=== PATIENT | female | born 1945 | race Caucasian/White ===

== ENCOUNTER 2023-12-28 20:18 | Inpatient (IN) | payer MEDICARE, MEDICAID, SELFPAY ==
[2023-12-28 20:19] VITALS: BP 152/62; PULSE 80; RESP 18; TEMP 36.6; O2SAT 95; BMI 43.6
--- NOTE | 2023-12-28 20:54 | NURSING ---
Patients last known well was 12/22/23. The family was concerned that the patient is acting different with her memory. This nurse completed an NIHSS and scored the patient a two.
--- NOTE | 2023-12-28 21:37 | EKG12_ITS ---
Test Reason : FALL Blood Pressure : / mmHG Vent. Rate : 079 BPM Atrial Rate : 079 BPM P-R Int : 124 ms QRS Dur : 074 ms QT Int : 360 ms P-R-T Axes : 046 036 042 degrees QTc Int : 412 ms Normal sinus rhythm Normal ECG Confirmed by DIDI RUIZ, DEANN ([id number]), editor school photograph SRINATH DUKES ([id number]) on 12/30/2023 6:47:03 AM Referred By: Confirmed By:ZOLTAN TOLBERT MD
--- NOTE | 2023-12-28 21:37 | CT_ITS ---
STUDY: CT CERVICAL SPINE WITHOUT CONTRAST REASON FOR EXAM: Female, 78 years old. pain, fall RADIATION DOSAGE (If Supplied By Facility): CTDIvol = ( 32.40 ) mGy, DLP = ( 600.62 ) mGycm TECHNIQUE: High resolution transaxial imaging was performed without contrast material. Sagittal and coronal images were reconstructed. Individualized dose optimization techniques were used for this CT. COMPARISON: None FINDINGS: Normal craniovertebral junction. Normal anterior atlantoaxial articulation. Normal odontoid process. Normal cervical lordosis. Normal vertebral bodies and posterior osseous elements. C2-3: Normal endplates. Normal disc height and morphology. Normal central canal and intervertebral neuroforamina. C3-4: Normal endplates. Normal disc height and morphology. Normal central canal. Facet hypertrophy slightly narrowing the left intervertebral neuroforamen. C4-5: Normal endplates. Normal disc height and morphology. Normal central canal. Facet hypertrophy slightly narrowing the left intervertebral neural foramen. C5-6: Mild spurring at the endplates. Narrowed disc height. Normal central canal . Uncovertebral spurring slightly narrowing the right intervertebral neural foramen. C6-7: Normal endplates. Normal disc height and morphology. Normal central canal and intervertebral neuroforamina. C7-T1: Normal endplates. Normal disc height and morphology. Normal central canal and intervertebral neuroforamina. Normal visualized soft tissue structures. CT/Spine Cervical without Contras IMPRESSION: No acute bony injury of the cervical spine. Electronically Signed: Hernan Palmer DO at 23:08 EDT Reading Location ID and State: [facility] / [place] Tel [phone], Service support ,
--- NOTE | 2023-12-28 21:37 | CT_ITS ---
STUDY: CT BRAIN WITHOUT CONTRAST REASON FOR EXAM: Female, 78 years old. head injury RADIATION DOSAGE (If Supplied By Facility): CTDIvol = ( 44.99 ) mGy, DLP = ( 812.98 ) mGycm TECHNIQUE: Transaxial CT imaging of the brain was performed without administration of intravenous contrast material. Individualized dose optimization techniques were used for this CT. COMPARISON: No relevant priors. FINDINGS: Normal soft tissue structures. Normal calvarium. Normal size ventricles and extra-axial spaces for the patient''s age. Bilateral white matter microangiopathic ischemic changes of the cerebral hemispheres. Normal basal ganglia and thalami. Normal brainstem. Normal cerebellum. There is no intracranial hemorrhage. There are no findings of an acute ischemic infarction. Normal visualized paranasal sinuses. CT/Brain/Head without Contrast IMPRESSION: Age-related changes of the brain. Electronically Signed: Hernan Palmer DO at 22:57 EDT ,
[2023-12-28 21:45] LABS: Absolute Lymphocyte Count 1.66 X10^3/uL (0.83-4.51); Basophil# 0.03 X10^3/uL; Basophil% 0.2 % (0-1); Eosinophil# 0.03 X10^3/uL; Eosinophils% 0.2 % (0-5); Hematocrit 23.5 % (37-47); Hemoglobin 7.4 g/dL (12.0-15.0); Lymphocyte # 1.66 X10^3/ul (0.83-4.51); Lymphocyte % 11.3 % (19-41); Mean Corp Hgb Conc 31.5 g/dL (32-36); Mean Corpuscular Hgb 24.7 pg (27.0-32.0); Mean Corpuscular Volume 78.3 fL (81-99); Monocyte# 0.66 X10^3/uL; Monocyte% 4.5 % (0-10); NRBC Flagged by Analyzer 0.2 % (0-5); Neutrophil # 11.98 X10^3/uL (2.7-7.7); Neutrophil % 81.7 % (47-70); Platelet Count 323 K/mm3 (150-450); RBC Distribution Width CV 19.4 % (11.6-14.6); RBC Distribution Width SD 55.2 fl (35.1-43.9); White Blood Count 14.7 K/mm3 (4.4-11.0)
[2023-12-28 21:53] LABS: Erythrocyte Sedimentation Rate 91 mm/hr (0-30)
[2023-12-28 22:02] LABS: Mucous, Urine 0 SEEN /hpf (<or=2+)
[2023-12-28 22:04] LABS: Color, Urine Amber (Yellow); Glucose, Dipstick Normal (Normal); Ketone-Dipstick 5 mg/dl (Negative); Leukocyte Esterase-Dipstick 25 /ul (Negative); Nitrite-Dipstick Positive (Negative); Occult Blood-Urine 50 /ul (Negative); Protein-Dipstick 30 mg/dl (Negative); Specific Gravity, Urine 1.015 (1.002-1.030); Urine Bilirubin Dipstick Negative (Negative); Urine Clarity Sl. Cloudy (Clear); Urine Urobilinogen 4 mg/dl (Normal)
--- NOTE | 2023-12-28 22:15 | RAD_ITS ---
INDICATION: pain, fall EXAMINATION/TECHNIQUE: X-RAY - XR Pelvis 1 or 2 Views COMPARISON: FINDINGS: PELVIC BONES: No displaced fracture, destructive or sclerotic lesions. Note that overlapping bowel shadows may however obscure fine detail. Sacroiliac joints are unremarkable. No widening of the pubic symphysis. HIPS: The articular structures are unremarkable. No displaced fracture seen in this frontal view. SOFT TISSUES: No soft tissue swelling or gas. RAD/Pelvis 1 or 2 Views IMPRESSION: No evidence of displaced pelvic or hip fracture. Electronically Signed: Hernan Palmer DO at 23:31 EDT Reading Location ID and State: [facility] / [place] Tel [phone], Service support ,
--- NOTE | 2023-12-28 22:15 | RAD_ITS ---
INDICATION: cough EXAMINATION/TECHNIQUE: X-RAY - XR Chest 1 View COMPARISON: FINDINGS: LINES/DEVICES: None. LUNGS: No consolidation, edema or effusion. No pneumothorax. MEDIASTINUM AND CARDIOVASCULAR STRUCTURES: Cardiac silhouette not enlarged. Central airways and mediastinal contour are unremarkable. BONES AND SOFT TISSUES: Unremarkable. RAD/Chest 1 View (Portable) IMPRESSION: No radiographic evidence of acute cardiopulmonary disease. Electronically Signed: Hernan Palmer DO at 23:51 EDT ,
[2023-12-28 22:19] VITALS: BP 160/64
[2023-12-28 22:19] LABS: Bacteria 4+ /hpf (None Seen); Hyaline Cast 0-5 SEEN /lpf (0-5); Red Blood Cells-Urine 0-5 SEEN /hpf (0-5); Squamous Epithelial Cells - UA 0-5 SEEN /hpf (5-10); White Blood Cells 0-5 SEEN /hpf (0-5)
[2023-12-28 22:21] LABS: ALB/GLOB Ratio 0.3 RATIO (0.9-2.4); AST(SGOT) 27 U/L (15-37); Alanine Aminotransfer ALT/SGPT 30 U/L (13-56); Albumin, Serum 1.8 g/dL (3.2-5.0); Alkaline Phosphatase 198 U/L (45-117); Anion Gap 5 (5-15); BUN 12 mg/dL (7-18); BUN/Creat Ratio 14.4 RATIO (10-20); CPK Total, Creatine Kinase 13 U/L (26-192); Calcium,Total 8.2 mg/dL (8.5-10.1); Chloride 97 mmol/L (98-107); Creatinine, Serum 0.83 mg/dL (0.55-1.02); EST Glomerular Filtration Rate 71 mL/min (>60); Est Glom Filt Rate - Afr Amer 86 mL/min (>60); Estimated Creatinine Clearance 73.26 ml/min; Globulin 5.7 g/dL (2.2-4.2); Glucose 133 mg/dL (74-106); Potassium 3.8 mmol/L (3.5-5.1); Protein, Total 7.5 g/dL (6.4-8.2); Sodium Level 133 mmol/L (136-145); Troponin-I HS 25 pg/mL (3.0-54.0)
--- NOTE | 2023-12-28 23:37 | PCM.HP.STD ---
HPI - General General Date of Admission: 12/28/23 Date of Service: 12/28/23 Chief Complaint: Fall/back pain HPI Narrative DEON JIMENEZ, is a 78 F who presented to the emergency department at [facility] on 12/28/2023 for back pain after fall. She indicates she has frequent falls. She lives with her daughter in a trailer at this time. She ambulates with a walker at baseline due to mobility issues. She recently had a fall and has been having some increased back pain since that point in time so she came to emergency department. She admits to a new left lower extremity chronic leg wound that has been ongoing for 2 years she states that about a year ago she had complete resolution and then shortly thereafter it reestablished and has been problematic since that point in time. She is currently placing dressings with silver sulfasalazine prescribed by her primary care physician. She denies any systemic symptoms. She complains of chronic constipation and has never had a colonoscopy. She denies any melena or hematochezia. She has no vaginal bleeding. She indicated that if it was not for her back pain she would need to come to the emergency department. She does admit to being previously diagnosed with obstructive sleep apnea but has never gone for CPAP assessment. Vital signs on presentation showed a temperature of 97.9, heart rate 80, blood pressure 152/62, respiratory rate was 18 oxygen saturations were 95% on room air. CBC shows multiple abnormalities with a leukocytosis having a 14.7 white count and an 81.7% neutrophilia. She has a microcytic anemia with a hemoglobin of 7.4 and MCV of 78.3 with all indices being abnormal. Platelet count was normal. Chemistry shows a sodium of 133 with normal renal function. Glucose is 133 nonfasting. LFTs are normal. Troponin was 25. ESR was elevated at 91. CRP is 231. EKG was normal sinus rhythm without any ST-T wave changes consistent with acute ischemia and intervals were normal. CT the brain shows only age-related changes and no acute findings. CT of the cervical spine showed no acute bony abnormality. Chest x-ray showed no evidence of any acute cardiopulmonary disease. Pelvic x-ray showed no evidence of displaced pelvic or hip fracture and x-rays of the left lower extremity tibia and fibula show [facility] Medical History (Updated 12/29/23 @ 00:[address] Melanie Starks, ) AJAY (obstructive sleep apnea) Morbid obesity Chronic edema Hypothyroidism Congenital skull deformity Open leg wound Home Medications ?Medication ?Instructions ?Recorded ?Last Taken ?Type furosemide 20 mg tablet 20 mg PO DAILY PRN swelling 12/28/23 12/28/23 History levothyroxine 75 mcg tablet 25 mcg PO DAILY 12/28/23 Unknown History silver sulfadiazine 1 % topical 1 applic topical BID 12/28/23 12/28/23 History cream Allergy/AdvReac Type Severity Reaction Status Date / Time Penicillins Allergy Intermediate Rash Verified 12/28/23 20:30 Family History (Updated 12/29/23 @ 00:[address] Graciela Cartagena DO) Other Heart disease Hypertension Thyroid disorder unable to obtain Social History (Updated 12/29/23 @ 00:[address] Graciela Cartagena DO) household members: children housing: other details: Trailer Smoking Status: Former smoker alcohol intake: current alcohol intake frequency: holidays/special occasions only substance use type: does not use additional social history: Ambulates at baseline with a walker ROS Constitutional Constitutional: Denies anorexia, change in weight, chills, fatigue, fever(s), malaise, night sweats, weakness or other Eyes Eyes: Denies blurry vision, change in eye color, change in vision, discharge from eye(s), double vision, erythema, eye pain, loss of vision or other ENT HEENT: Denies abnormal hearing, dysphagia, ear pain, epistaxis, headache(s), hearing loss, nasal congestion, nasal discharge, post nasal drip, sinus pressure, sore throat or other Cardiovascular Cardiovascular: Denies chest pain, claudication, dyspnea on exertion, edema, lightheadedness, orthopnea, palpitations, paroxysmal nocturnal dyspnea, rapid heart rate, syncope or other Respiratory/Chest Respiratory/Chest: Denies cough, dyspnea, excessive phlegm production, hemoptysis, productive cough, shortness of breath at rest, shortness of breath with exertion, wheezing or other Gastrointestinal Gastrointestinal: Reports constipation; Denies abdominal pain, coffee ground emesis, diarrhea, dyspepsia, hematemesis, hematochezia, loose stools, melena, nausea, vomiting or other Genitourinary Genitourinary: Denies burning urination, difficulty urinating, dysuria, hematuria, nocturia, urinary frequency, urinary hesitancy, urinary incontinence, urinary urgency or other Musculoskeletal Musculoskeletal: Reports back pain, joint pain and joint stiffness; Denies arthralgias, joint swelling, myalgias, neck pain or other Integumentary Integumentary: Reports wounds; Denies dry skin, jaundice, lesions, new lesions, pruritus or rash Neurologic Neurologic: Reports abnormal gait; Denies abnormal speech, confusion, disequilibrium, dizziness, focal weakness, headache(s), numbness, paresthesias, seizure-like activity, seizures, syncope, tingling, tremor(s) or other Psychiatric Psychiatric: Denies anxiety, depression, homicidal ideation, suicidal ideation or other Endocrine Endocrinology: Denies change in body appearance, cold intolerance, excessive sweating, heat intolerance, polydipsia, polyuria or other Hematologic/Lymphatic Hematologic/Lymphatic: Denies anemia, easy bleeding, easy bruising, lymphadenopathy or other Allergic/Immunologic Allergic/Immunologic: Denies rhinitis, hives, eczemia, asthma or other Vital Signs Vital Signs Vital Signs: 12/28/23 20:19 12/28/23 20:23 12/28/23 22:19 Temperature 97.9 F Temperature Source Oral Pulse Rate 80 Respiratory Rate 18 Respiratory Effort Normal Respiratory Depth Normal Respiratory Pattern Normal Blood Pressure 152/62 H 160/64 H Blood Pressure Mean 92 96 Pulse Ox 95 Oxygen Delivery Method Room Air Room Air Weight Weight: 118.9 kg Body Mass Index (BMI) 43.6 Physical Exam Const alert, oriented x3, no apparent distress and well nourished; Negative for average body habitus or healthy appearing Constitutional Narrative: Morbidly obese, older, white female, sitting up in bed, appears comfortable and nontoxic General Appearance: cooperative HEENT normocephalic, head/scalp atraumatic, hearing grossly normal bilaterally and moist oral mucous membranes HEENT Narrative: Mallampati 4, no thrush Eyes PERRL and EOMs intact bilaterally; Negative for conjunctivae normal Eyes Narrative: Conjunctiva are pale bilaterally, no scleral icterus Neck no lymphadenopathy and supple Neck Narrative: Neck is short and thick, trachea is midline, no thyroid enlargement Resp normal respiratory effort, no retractions, no use of accessory muscles and clear to auscultation bilaterally Resp Narrative: Distant due to body habitus but clear Auscultation: Negative for rales, rhonchi or wheezes Cardio regular rate, regular rhythm, S1 normal heart sound, S2 normal heart sound, no murmurs, no rub, no gallops and no clicks GI normal to inspection, nondistended, normoactive bowel sounds, soft to palpation and non-tender GI Narrative: Large protuberant abdomen Extremity Extremity Narrative: Left lower extremity edema with wound as described below, no cyanosis or clubbing, trace right lower extremity edema Skin Skin Narrative: Skin on legs is dry on the right, left leg has large circumferential ulceration with purulent drainage that appears to be fairly superficial, significantly tender, intertriginous yeast noted Neuro oriented x3, CN's II-XII intact bilaterally, moves all extremities and no focal motor deficits Speech: speech normal Psych affect normal Psych Narrative: Pleasant, interacts appropriately Results Lab / Micro Data 12/28/23 21:08 12/28/23 21:08 Labs: Laboratory Results - last 24 hr 12/28/23 21:08: WBC 14.7 H, RBC 3.00 L, Hgb 7.4 L, Hct 23.5 L, MCV 78.3 L, MCH 24.7 L, MCHC 31.5 L, RDW Std Deviation 55.2 H, RDW Coeff of Collins 19.4 H, Plt Count 323, MPV 10.0, Immature Gran % (Auto) 2.100 H, Neut % (Auto) 81.7 H, Lymph % (Auto) 11.3 L, Jackson % (Auto) 4.5, Eos % (Auto) 0.2, Baso % (Auto) 0.2, Absolute Neuts (auto) 12.0 H, Absolute Lymphs (auto) 1.66, Nucleated RBC % 0.2, ESR 91 H, Sodium 133 L, Potassium 3.8, Chloride 97 L, Carbon Dioxide 31.0, Anion Gap 5, BUN 12, Creatinine 0.83, Estim Creat Clear Calc 73.26, Est GFR (MDRD) Af Amer 86, Est GFR (MDRD) Non-Af 71, BUN/Creatinine Ratio 14.4, Glucose 133 H, Calcium 8.2 L, Total Bilirubin 0.90, AST 27, ALT 30, Alkaline Phosphatase 198 H, Total Creatine Kinase 13 L, Troponin I High Sens 25, C-React Prot Ext Range 231.00 H, Total Protein 7.5, Albumin 1.8 L, Globulin 5.7 H, Albumin/Globulin Ratio 0.3 L 12/28/23 21:56: Urine Color Susannah, Urine Clarity Sl. Cloudy, Urine pH 6.0, Ur Specific [place] 1.015, Urine Protein 30 H, Urine Glucose (UA) Normal, Urine Ketones 5 H, Urine Occult Blood 50 H, Urine Nitrite Positive H, Urine Bilirubin Negative, Urine Urobilinogen 4 H, Ur Leukocyte Esterase 25 H, Urine RBC 0-5 SEEN, Urine WBC 0-5 SEEN, Ur Squamous Epith Cells 0-5 SEEN, Urine Bacteria 4+, Hyaline Casts 0-5 SEEN, Urine Mucus 0 SEEN Micro: Microbiology 12/28/23 21:56 Mucosa - Nasopharyngeal SARS-CoV-2, Influenza & RSV (PCR) - Final Imaging Radiology Impression Brain CT 12/28/23 21:37 IMPRESSION: Age-related changes of the brain. Electronically Signed: Hernan Palmer DO at 22:57 EDT , Cervical Spine CT 12/28/23 21:37 IMPRESSION: No acute bony injury of the cervical spine. Electronically Signed: Hernan Palmer DO at 23:08 EDT , Pelvis X-Ray 12/28/23 22:15 IMPRESSION: No evidence of displaced pelvic or hip fracture. Electronically Signed: Hernan Palmer DO at 23:31 EDT , Assessment & Plan Assessment/Plan (1) Leukocytosis: (2) Microcytic anemia: (3) Hyponatremia: (4) Abnormal finding on urinalysis: (5) Constipation: (6) Generalized weakness: (7) Debility: (8) Cellulitis of leg, left: (9) Elevated blood pressure reading: (10) Intertriginous candidiasis: PLAN: Plan Left lower extremity cellulitis -Acute on chronic wound -Check cultures of the wound -Blood cultures are pending -Wound nurse consultation -Check hemoglobin A1c -No obvious need for surgical debridement at this time -Start vancomycin and Levaquin as patient has penicillin allergy -May need to consider ID involvement depending on culture results -Wound does not appear to be deep however x-rays are pending at admission as CRP and sed rate are markedly elevated Microcytic anemia -No obvious signs of blood loss --> I am highly concerned for GI malignancy -patient denies vaginal bleeding -Ferritin, reticulocyte count, iron studies are pending -Guaiac stool pending -Repeat CBC in a.m. -Will hold off on DVT prophylaxis for now and if hemoglobin is stable may be able to consider -Would strongly recommend outpatient GI follow-up as patient has never had a colonoscopy if her hemoglobin is stable while hospitalized to pursue outpatient colonoscopy Abnormal urinalysis -Cultures pending -Antibiotics as noted above Chronic constipation -Scheduled MiraLAX twice daily -Pelvic exam shows large stool burden in the left colon and rectum -as needed stool softeners are available as well Elevated blood pressure reading without history of hypertension -Patient takes as needed Lasix for swelling only -Not on any scheduled antihypertensive -As needed hydralazine for systolic pressure greater than 160 -May need to consider addition of antihypertensive depending on blood pressure trend while hospitalized as I do suspect she probably has some underlying hypertension at baseline Generalized weakness/falls and debility -PT/OT consultation -Patient ambulates with a walker at baseline -Social work/case management consultation for assistance with discharge planning Intertriginous candidiasis -Scheduled nystatin powder Hyponatremia -Mild -Etiology unclear but may be due to as needed Lasix -Hold Lasix while hospitalized -Recheck sodium in a.m. Hypothyroidism -Continue home levothyroxine -Check TSH AJAY -Patient indicates she was to go for evaluation for CPAP but never has done so -AJAY is untreated at baseline Morbid obesity -BMI 43.6 -Recommend weight loss -Complicates treatment, prognosis, outcomes -Likely contributing to debility DVT prophylaxis -SCDs for now until we can rule out any obvious GI bleeding with microcytic anemia -If able to start chemoprophylaxis will likely need Lovenox 40 twice daily CODE STATUS -Full code as verified prior to admission in the emergency department Charges/Coding Visit Charges Inpatient E&M: 28232 Init Hosp L3
--- NOTE | 2023-12-28 23:41 | RAD_ITS ---
INDICATION: wound EXAMINATION/TECHNIQUE: X-RAY - LEFT XR Tibia/Fibula 2 Views COMPARISON: None. FINDINGS: 4 views of the left tib-fib. BONES: Normal anatomic alignment without evidence of fracture or subluxation. No concerning bony lesion or abnormal sclerosis to suggest lesion. JOINTS: Mild to moderate tricompartment degenerative change. SOFT TISSUES: Inferior calcaneal and Achilles enthesophytes. RAD/Tibia & Fibula 2 Views IMPRESSION: No acute osseous abnormality of the left tib-fib. Electronically Signed: Zia Wheeler MD at 0:22 EDT ,
[2023-12-28 23:53] VITALS: BP 183/73; PULSE 87; RESP 20; TEMP 36.3; O2SAT 95
[2023-12-28] MEDS: Cefepime HCl 2 GM in 0.9% Normal Saline (100mL MB+) 100 ML IV (23:58)
[2023-12-29] VITALS (8 sets, daily range): BP systolic 147–189; BP diastolic 55–83; PULSE 75–94; RESP 18–20; TEMP 36.7–37.1; O2SAT 94–100; BMI 42.3
[2023-12-29 00:09] LABS: Platelet Count 318 K/mm3 (150-450); RET-HE 19.6 pg (30-35); Reticulocyte Count 3.14 % (0.5-1.5)
[2023-12-29 00:19] LABS: Ferritin 469 ng/mL (8-252); Iron 22 ug/dL (50-170); Iron Binding Capacity,Total 183 ug/dL (250-450)
--- NOTE | 2023-12-29 00:23 | EX.ED.DYSGE1 ---
HPI History of Present Illness Chief Complaint: Fall Informant: patient Narrative Narrative: Patient is a 78-year-old female with history of constipation, chronic wound of the left lower extremity, AJAY and hypothyroidism presenting for evaluation after a fall. Patient apparently lives in a trailer with her sister. She had a fall 4 to 5 days ago. Patient think she just lost her balance but think she hit her head and does not remember the fall. She states for a time her legs just would not move. Her next-door neighbor had to come help her up and she was on the ground for at least 2 hours. Family found out about this fall today and brought her to the emergency room. They are worried that she has a head injury and they feel that she seems weaker than normal, her speech is a little different and she is not remembering things like she usually would (for example her Social Security number). Patient has been feeling congested for the past 4 days and has had a mild cough but states it hurts to cough. She is having pain on the right side of her neck that goes down to her right chest. She denies any nausea or vomiting and reports chronic constipation. She states her last bowel movement 4 days ago. She denies any black or blood in her stool. She denies abdominal pain. Does not report any urinary symptoms. Does have a increased drainage and weeping from her left lower extremity. No fevers reported. She states she has chronic wounds on her legs and her primary care doctor did refer her to wound care but she has not been able to get in yet. [facility] Medical History AJAY (obstructive sleep apnea) Morbid obesity Chronic edema Hypothyroidism Congenital skull deformity Open leg wound Home Medications ?Medication ?Instructions ?Recorded ?Last Taken ?Type furosemide 20 mg tablet 20 mg PO DAILY PRN swelling 12/28/23 12/28/23 History levothyroxine 75 mcg tablet 25 mcg PO DAILY 12/28/23 Unknown History silver sulfadiazine 1 % topical 1 applic topical BID 12/28/23 12/28/23 History cream Allergy/AdvReac Type Severity Reaction Status Date / Time Penicillins Allergy Intermediate Rash Verified 12/28/23 20:30 Family History Other Heart disease Hypertension Thyroid disorder Social History household members: children housing: other details: Trailer Smoking Status: Former smoker alcohol intake: current alcohol intake frequency: holidays/special occasions only substance use type: does not use additional social history: Ambulates at baseline with a walker ROS ROS ED Constitutional Constitutional ED: Denies chills or fever(s) Cardiovascular Cardiovascular: Reports chest pain Respiratory/Chest Respiratory/Chest: Reports cough; Denies dyspnea Gastrointestinal Gastrointestinal: Reports constipation; Denies abdominal pain, melena, nausea or vomiting Genitourinary Genitourinary ED: Denies dysuria Musculoskeletal Musculoskeletal: Reports neck pain; Denies arthralgias or myalgias Integumentary Reports rash Neurologic Neurologic: Reports weakness; Denies headache(s) or paresthesias Hematologic/Lymphatic Hematologic/Lymphatic: Denies easy bleeding or easy bruising EXAM Physical Exam Const Vital Signs: 12/28/23 20:19 12/28/23 20:23 12/28/23 22:19 Temperature 97.9 F Temperature Source Oral Pulse Rate 80 Respiratory Rate 18 Respiratory Effort Normal Respiratory Depth Normal Respiratory Pattern Normal Blood Pressure 152/62 H 160/64 H Blood Pressure Mean 92 96 Pulse Ox 95 Oxygen Delivery Method Room Air Room Air Positive well nourished, well developed and obese General Appearance ED: well developed and NAD Nutritional Appearance: obese HEENT Reports moist mucous membranes Eyes PERRL and EOMs intact bilaterally Neck supple Neck Narrative: Midline and right sided neck tenderness. No deformity or step-off appreciated. General: tenderness Chest Wall inspection of chest normal and palpation of chest normal Chest Narrative: No chest wall crepitus appreciated Resp normal respiratory effort and clear to auscultation bilaterally Cardio regular rate and regular rhythm GI normal to inspection, nondistended, normoactive bowel sounds and non-tender Auscultation: normoactive bowel sounds Back/Spine Cervical Spine: cervical spine tenderness Extremity Extremity Narrative: Chronic appearing bilateral lower extremities. No obvious deformity. No pain with range of motion of the hips. Pelvis is stable. Edema and chronic venous stasis changes of Neuro oriented x3 Sensorium / Orientation: alert Motor Exam: general weakness Psych mental status grossly normal Skin Skin Narrative: Thickening and chronic venous stasis changes of bilateral legs. Of the left lower extremity patient has 2 separate areas of seeping of these open chronic wounds that are odorous and have seropurulent discharge. She is asymmetric erythema and warmth of the left lower extremity with erythema going from the ankle up to the knee MDM MDM MDM Narrative Medical decision making narrative: Patient is evaluated for weakness, fall that occurred a couple days ago and concern for increased confusion by family. I do not suspect a stroke however given her report of fall will obtain a CT of the brain and cervical spine to rule out traumatic process. I am more concerned about a metabolic process such as infection, possible electrolyte abnormality, hyperglycemia, DKA or even sepsis. CBC shows a leukocytosis with white blood cell count of 14.7, left shift as well as anemia with a hemoglobin 11.4. Her platelets are normal. CMP BMP shows mild hyponatremia the sodium 133 but otherwise largely normal. Normal BUN and creatinine. She has elevation of her CRP and ESR. Liver panel is largely normal but she does have an elevation of her alkaline phosphatase which is nonspecific. High since troponin is normal at 25 and EKG does not show any signs of acute ischemia. Low suspicion for an acute cardiac process at this time. Lactate is added on as well as cultures and a lactate is normal at 1.0. Urinalysis does show signs concerning for infection with 4+ bacteria and positive nitrites. Urine culture sent. Chest x-ray and pelvic x-ray reviewed by myself as well as radiology does not show any acute process or fracture. Patient be started on broad-spectrum antibiotics for concern of cellulitis of her left lower extremity. At this time patient does not meet criteria for sepsis or severe sepsis. She is allergic to penicillin, after discussion with admitting physician, Dr. Cartagena, will start the patient on vancomycin and cefepime in the emergency room. Hospitalist is requested x-ray of the tibia and fibula as well as fecal occult for further workup of her anemia and to rule out GI bleed. This is ordered. When I go back in the room patient's and her family are now in there. Plan of care discussed with them. They are agreeable. Patient hemodynamically stable for the medical floor at time of disposition. History & Record Review Additional record(s) reviewed:: No prior records Lab Data Attestation: I reviewed the patient's lab results. Labs: Laboratory Results - last 24 hr 12/28/23 12/28/23 12/28/23 21:08 21:56 23:15 WBC 14.7 H RBC 3.00 L Hgb 7.4 L Hct 23.5 L MCV 78.3 L MCH 24.7 L MCHC 31.5 L RDW Std Deviation 55.2 H RDW Coeff of Collins 19.4 H Plt Count 323 MPV 10.0 Immature Gran % (Auto) 2.100 H Neut % (Auto) 81.7 H Lymph % (Auto) 11.3 L Geary % (Auto) 4.5 Eos % (Auto) 0.2 Baso % (Auto) 0.2 Absolute Neuts (auto) 12.0 H Absolute Lymphs (auto) 1.66 Nucleated RBC % 0.2 ESR 91 H Retic Count 3.14 H Immature Retic Fraction 47.30 H Retic Hgb Equivalent 19.6 L Sodium 133 L Potassium 3.8 Chloride 97 L Carbon Dioxide 31.0 Anion Gap 5 BUN 12 Creatinine 0.83 Estim Creat Clear Calc 73.26 Est GFR (MDRD) Af Amer 86 Est GFR (MDRD) Non-Af 71 BUN/Creatinine Ratio 14.4 Glucose 133 H Lactic Acid 1.0 Calcium 8.2 L Iron 22 L TIBC 183 L Iron Saturation 12.0 L Ferritin 469 H Total Bilirubin 0.90 AST 27 ALT 30 Alkaline Phosphatase 198 H Total Creatine Kinase 13 L Troponin I High Sens 25 C-React Prot Ext Range 231.00 H Total Protein 7.5 Albumin 1.8 L Globulin 5.7 H Albumin/Globulin Ratio 0.3 L TSH 4.590 H Urine Color Susannah Urine Clarity Sl. Cloudy Urine pH 6.0 Ur Specific [place] 1.015 Urine Protein 30 H Urine Glucose (UA) Normal Urine Ketones 5 H Urine Occult Blood 50 H Urine Nitrite Positive H Urine Bilirubin Negative Urine Urobilinogen 4 H Ur Leukocyte Esterase 25 H Urine RBC 0-5 SEEN Urine WBC 0-5 SEEN Ur Squamous Epith Cells 0-5 SEEN Urine Bacteria 4+ Hyaline Casts 0-5 SEEN Urine Mucus 0 SEEN Radiography Diagnostic Testing: Clinical Impression(s) from Imaging Studies Brain CT 12/28/23 21:37 IMPRESSION: Age-related changes of the brain. Electronically Signed: Hernan Palmer DO at 22:57 EDT Reading Location ID and State: [facility] / [place] Tel [phone], Service support , Cervical Spine CT 12/28/23 21:37 IMPRESSION: No acute bony injury of the cervical spine. Electronically Signed: Hernan Palmer DO at 23:08 EDT , Chest X-Ray 12/28/23 22:15 IMPRESSION: No radiographic evidence of acute cardiopulmonary disease. Electronically Signed: Hernan Palmer DO at 23:51 EDT , Pelvis X-Ray 12/28/23 22:15 IMPRESSION: No evidence of displaced pelvic or hip fracture. Electronically Signed: Hernan Palmer DO at 23:31 EDT , Tibia/Fibula X-Ray 12/28/23 23:41 IMPRESSION: No acute osseous abnormality of the left tib-fib. Electronically Signed: Zia Wheeler MD at 0:22 EDT , Rhythm Strip Rhythm Strip: Sinus Rhythm Rate: 79 Ectopy: None EKG Initial EKG: Attestation: I personally reviewed and interpreted this EKG as follows: Interpretation: Sinus Rhythm Comments: Normal sinus rhythm rate of 79 bpm Normal axis Normal intervals Normal ST segments Prior: No Prior Management Discussion w/another healthcare provider: Hospitalist Discharge Plan Triage Chief Complaint: Fall Other Complaint: Back ED Provider: Melanie Starks Dx/Rx/DC Orders Clinical Impression: Cellulitis of leg, left, Leukocytosis, Microcytic anemia, Hyponatremia, Abnormal finding on urinalysis, Generalized weakness, Debility Primary Care Provider: Care Physician,No Primary Disposition Disposition: [facility]
[2023-12-29 01:26] LABS: Hemoglobin A1c < 3.8 % (3.8-5.6)
[2023-12-29] MEDS: 0.9% Saline Lock 10 ML Syringe IV ×3 (01:36→13:26)
[2023-12-29] MEDS: Vancomycin HCl 2,000 MG in 0.9% Normal Saline (500mL Bag) 500 ML 250 MG IV (01:36)
--- NOTE | 2023-12-29 02:03 | PCM.RX.CS ---
Consult Antibiotic Management Pharmacy has been consulted to manage selected antibiotic: Vancomycin Type of Intervention Type of Consult: New start Labs Labs: Sodium 133 mmol/L (136-145) L 12/28/23 21:08 Potassium 3.8 mmol/L (3.5-5.1) 12/28/23 21:08 Chloride 97 mmol/L (98-107) L 12/28/23 21:08 Carbon Dioxide 31.0 mmol/L (21.0-32.0) 12/28/23 21:08 Anion Gap 5 (5-15) 12/28/23 21:08 BUN 12 mg/dL (7-18) 12/28/23 21:08 Creatinine 0.83 mg/dL (0.55-1.02) 12/28/23 21:08 Est GFR (MDRD) Af Amer 86 mL/min (>60) 12/28/23 21:08 Est GFR (MDRD) Non-Af 71 mL/min (>60) 12/28/23 21:08 BUN/Creatinine Ratio 14.4 RATIO (10-20) 12/28/23 21:08 Glucose 133 mg/dL (74-106) H 12/28/23 21:08 Microbiology Microbiology: Microbiology 12/29/23 00:40 Stool Stool Occult Blood (MELANIE) - Final 12/28/23 21:56 Mucosa - Nasopharyngeal SARS-CoV-2, Influenza & RSV (PCR) - Final Dosing Weight Weight used for dosin.4 kg Estimated Creatinine Clearance Estimated Creatinine Clearance: 73.3 Goal Trough Goal Trough: 15-20 mcg/mL Pharmacy Plan for Drug Dosing Pharmacy Plan for Drug Dosing: Pharmacy Service will continue to monitor and adjust dosing as required. 2000MG IN ER. 1750 Q12H AND DRAW TROUGH PRIOR TO 4TH DOSE Follow-Up Labs Follow-Up Labs: Trough: Vancomycin Date/Time Labs Ordered Labs to be done on [date and time ordered]: 12/29 @ 1300
[2023-12-29] MEDS: Acetaminophen 325 MG Tablet 650 MG PO ×2 (03:12→13:29)
[2023-12-29] MEDS: Nystatin Powder 15gm Bottle 1 APPLIC TOPICAL ×3 (03:12→20:41)
[2023-12-29] MEDS: hydrALAZINE 20 MG/ML Vial 10 MG IV ×2 (03:20→20:45)
[2023-12-29] MEDS: Levothyroxine 25 MCG TABLET PO (05:39)
[2023-12-29 07:06] LABS: Absolute Lymphocyte Count 1.88 X10^3/uL (0.83-4.51); Absolute Neutrophil Count 13.6 X10^3/uL (2.0-7.7); Basophil# 0.04 X10^3/uL; Basophil% 0.2 % (0-1); Eosinophil# 0.02 X10^3/uL; Eosinophils% 0.1 % (0-5); Hematocrit 23.4 % (37-47); Hemoglobin 7.3 g/dL (12.0-15.0); Lymphocyte # 1.88 X10^3/ul (0.83-4.51); Lymphocyte % 11.4 % (19-41); Mean Corp Hgb Conc 31.2 g/dL (32-36); Mean Corpuscular Hgb 24.5 pg (27.0-32.0); Mean Corpuscular Volume 78.5 fL (81-99); Monocyte# 0.73 X10^3/uL; Monocyte% 4.4 % (0-10); NRBC Flagged by Analyzer 0.2 % (0-5); Neutrophil # 13.58 X10^3/uL (2.7-7.7); Neutrophil % 82.3 % (47-70); Platelet Count 316 K/mm3 (150-450); RBC Distribution Width CV 19.2 % (11.6-14.6); RBC Distribution Width SD 54.3 fl (35.1-43.9); Red Blood Count 2.98 M/mm3 (4.2-5.4); White Blood Count 16.5 K/mm3 (4.4-11.0)
[2023-12-29 07:54] LABS: ALB/GLOB Ratio 0.3 RATIO (0.9-2.4); AST(SGOT) 20 U/L (15-37); Alanine Aminotransfer ALT/SGPT 28 U/L (13-56); Albumin, Serum 1.7 g/dL (3.2-5.0); Alkaline Phosphatase 202 U/L (45-117); Anion Gap 5 (5-15); BUN 10 mg/dL (7-18); BUN/Creat Ratio 13.1 RATIO (10-20); Calcium,Total 7.9 mg/dL (8.5-10.1); Chloride 99 mmol/L (98-107); Creatinine, Serum 0.76 mg/dL (0.55-1.02); EST Glomerular Filtration Rate 78 mL/min (>60); Est Glom Filt Rate - Afr Amer 94 mL/min (>60); Estimated Creatinine Clearance 74.71 ml/min; Globulin 5.8 g/dL (2.2-4.2); Glucose 118 mg/dL (74-106); Magnesium 1.9 mg/dL (1.6-2.6); Phosphorus 2.8 mg/dL (2.5-4.9); Potassium 3.7 mmol/L (3.5-5.1); Protein, Total 7.5 g/dL (6.4-8.2); Sodium Level 133 mmol/L (136-145)
[2023-12-29] MEDS: levoFLOXacin IV 750 MG/150 ML BAG 100 MG IV (09:31)
[2023-12-29] MEDS: Polyethylene Glycol 3350 17 GM PACKET PO (09:31)
--- NOTE | 2023-12-29 11:32 | WOUNDNOTE ---
wound photo: left lower leg
--- NOTE | 2023-12-29 11:32 | WOUNDNOTE ---
wound photo: left posterior lower leg
--- NOTE | 2023-12-29 12:40 | PN_ITS ---
Subjective Subjective Patient seen and examined. She had no active concerns. She was admitted on account of mechanical falls and found right lower extremity also with cellulitis. She is also anemic. She denies any history of dark stools. She is never had colonoscopy before. She admits to a 10 pound weight loss but cannot say what medicines and is not unintentional. Review of systems otherwise negative. She has remained hemodynamically stable. Objective Data Objective Data Vital Signs: Vital Signs Temp Pulse Resp BP Pulse Ox O2 Del Method 98.1 F 75 18 168/61 H 95 Room Air 12/29/23 09:25 12/29/23 09:25 12/29/23 09:25 12/29/23 09:25 12/29/23 09:25 12/29/23 09:35 Oxygen Delivery Method Room Air Weight: 254 lb 6.615 oz Body Mass Index (BMI) 42.3 Intake & Output: Intake and Output for Last 24 Hours 12/27/23 12/28/23 12/29/23 23:59 23:59 23:59 Intake Total 790 / 790 Output Total 650 / 650 Balance 140 / 140 Lab / Micro Data 12/29/23 06:48 12/29/23 06:48 Labs: Laboratory Results - last 24 hr 12/28/23 21:08: WBC 14.7 H, RBC 3.00 L, Hgb 7.4 L, Hct 23.5 L, MCV 78.3 L, MCH 24.7 L, MCHC 31.5 L, RDW Std Deviation 55.2 H, RDW Coeff of Collins 19.4 H, Plt Count 323, MPV 10.0, Immature Gran % (Auto) 2.100 H, Neut % (Auto) 81.7 H, Lymph % (Auto) 11.3 L, [place] % (Auto) 4.5, Eos % (Auto) 0.2, Baso % (Auto) 0.2, A bsolute Neuts (auto) 12.0 H, Absolute Lymphs (auto) 1.66, Nucleated RBC % 0.2, E SR 91 H, Retic Count 3.14 H, Immature Retic Fraction 47.30 H, Retic Hgb Equivalent 19.6 L, Sodium 133 L, Potassium 3.8, Chloride 97 L, Carbon Dioxide 31.0, Anion Gap 5, BUN 12, Creatinine 0.83, Estim Creat Clear Calc 73.26, Est GFR (MDRD) Af Amer 86, Est GFR (MDRD) Non-Af 71, BUN/Creatinine Ratio 14.4, G lucose 133 H, Hemoglobin A1c < 3.8 L, Calcium 8.2 L, Iron 22 L, TIBC 183 L, Iron Saturation 12.0 L, Ferritin 469 H, Total Bilirubin 0.90, AST 27, ALT 30, A lkaline Phosphatase 198 H, Total Creatine Kinase 13 L, Troponin I High Sens 25, C-React Prot Ext Range 231.00 H, Total Protein 7.5, Albumin 1.8 L, Globulin 5.7 H, Albumin/Globulin Ratio 0.3 L, TSH 4.590 H 12/28/23 21:56: Urine Color Susannah, Urine Clarity Sl. Cloudy, Urine pH 6.0, Ur Specific [place] 1.015, Urine Protein 30 H, Urine Glucose (UA) Normal, Urine Ketones 5 H, Urine Occult Blood 50 H, Urine Nitrite Positive H, Urine Bilirubin Negative, Urine Urobilinogen 4 H, Ur Leukocyte Esterase 25 H, Urine RBC 0-5 SEEN, Urine WBC 0-5 SEEN, Ur Squamous Epith Cells 0-5 SEEN, Urine Bacteria 4+, Hyaline Casts 0-5 SEEN, Urine Mucus 0 SEEN 12/28/23 23:15: Lactic Acid 1.0 12/29/23 06:48: WBC 16.5 H, RBC 2.98 L, Hgb 7.3 L, Hct 23.4 L, MCV 78.5 L, MCH 24.5 L, MCHC 31.2 L, RDW Std Deviation 54.3 H, RDW Coeff of Collins 19.2 H, Plt Count 316, MPV 10.0, Immature Gran % (Auto) 1.600 H, Neut % (Auto) 82.3 H, Lymph % (Auto) 11.4 L, [place] % (Auto) 4.4, Eos % (Auto) 0.1, Baso % (Auto) 0.2, A bsolute Neuts (auto) 13.6 H, Absolute Lymphs (auto) 1.88, Nucleated RBC % 0.2, S odium 133 L, Potassium 3.7, Chloride 99, Carbon Dioxide 29.0, Anion Gap 5, BUN 10, Creatinine 0.76, Estim Creat Clear Calc 74.71, Est GFR (MDRD) Af Amer 94, Est GFR (MDRD) Non-Af 78, BUN/Creatinine Ratio 13.1, Glucose 118 H, Calcium 7.9 L, Phosphorus 2.8, Magnesium 1.9, Total Bilirubin 1.20 H, AST 20, ALT 28, A lkaline Phosphatase 202 H, Total Protein 7.5, Albumin 1.7 L, Globulin 5.8 H, A lbumin/Globulin Ratio 0.3 L 12/29/23 11:15: S.aureus Protein A PCR Cancelled, MRSA (PCR) Cancelled Micro: Microbiology 12/29/23 00:40 Stool Stool Occult Blood (MELANIE) - Final 12/28/23 21:56 Mucosa - Nasopharyngeal SARS-CoV-2, Influenza & RSV (PCR) - Final Radiography Diagnostic Testing: Radiology Impression Brain CT 12/28/23 21:37 IMPRESSION: Age-related changes of the brain. Electronically Signed: Hernan Palmer DO at 22:57 EDT , Cervical Spine CT 12/28/23 21:37 IMPRESSION: No acute bony injury of the cervical spine. Electronically Signed: Hernan Palmer DO at 23:08 EDT , Chest X-Ray 12/28/23 22:15 IMPRESSION: No radiographic evidence of acute cardiopulmonary disease. Electronically Signed: Hernan Palmer DO at 23:51 EDT , Pelvis X-Ray 12/28/23 22:15 IMPRESSION: No evidence of displaced pelvic or hip fracture. Electronically Signed: Hernan Palmer DO at 23:31 EDT , Tibia/Fibula X-Ray 12/28/23 23:41 IMPRESSION: No acute osseous abnormality of the left tib-fib. Electronically Signed: Zia Wheeler MD at 0:22 EDT , Rhythm Strip Rhythm Strip: Sinus Rhythm Rate: 79 Ectopy: None Physical Exam Const alert, oriented x3 and no apparent distress Constitutional Narrative: obese General Appearance: cooperative HEENT normocephalic, head/scalp atraumatic, moist oral mucous membranes and oropharynx normal Eyes PERRL and EOMs intact bilaterally Neck no lymphadenopathy and supple Lymph Lymphatic: no lymphadenopathy noted and no lymphedema noted Resp normal respiratory effort, normal air movement and clear to auscultation bilaterally Cardio regular rate, regular rhythm, S1 normal heart sound, S2 normal heart sound and no murmurs GI normal to inspection, nondistended, normoactive bowel sounds, soft to palpation, non-tender and non-distended Extremity Extremity Narrative: RLE wrapped in bandage on lower koroma. General Extremity: no tenderness to palpation of joints or extremities Skin Skin Narrative: as under extremity. Neuro CN's II-XII intact bilaterally, no focal motor deficits, no sensory deficits noted and deep tendon reflexes 2+ bilaterally Motor Exam: strength 5/5 throughout and general weakness Psych thought process normal and cooperative Appearance: appropriate Assessment & Plan Assessment/Plan (1) Cellulitis of leg, left: (2) Microcytic anemia: PLAN: Plan #Cellulitis of the LLE * LLE wrapped in bandage. * wound cultures ordered. 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 wound care consulted. * blood cultures and wound cultures pending * #Iron deficiency anemia * Hb today is 7.3. Iron studies showed iron deficiency anemia * she has never had a colonoscopy. She denies any dark stools or coffee ground emesis. * start on IV pantoprazole * GI consulted due to concern about malignancy * #Chronic constipation: on miralax prn. #Elevated blood pressure * BP has now improved. not on any BP meds. * will monitor, and if BP goes up, with start on oral meds * IV hydralazine prn * #Debility and generalised weakness due to mechanical falls * patient says she has been falling at home * PT/OT on board. Fall precautions * #Hyponatremia: resolved. #Hypothyroidism:on synthroid #AJAY: Patient not on CPAP she has not been evaluated for it. To follow up with pulmonology on outpatient basis for evaluation for CPAP. DVT prophylaxis: SCDs. No antioagulation due to anemia. Charges/Coding Visit Charges Inpatient E&M: 99010 Subs Hosp L2
[2023-12-29] MEDS: Ensure Plus High Protein 120 ML LIQUID PO (13:29)
[2023-12-29] MEDS: Vancomycin HCl 1,750 MG in 0.9% Normal Saline (500mL Bag) 500 ML 250 MG IV (13:30)
--- NOTE | 2023-12-29 16:30 | CASEMGMT ---
Addendum entered by Radha Kirkpatrick 12/30/23 11:16: RN CM spoke w/[facility]. Pt's current PCP is Dr Serna and pt just recently got re-established w/her as a new pt December 23. [employer] updated. Original Note: RN?CM?PORTFOLIO ARCHITECT?CM?to room to meet with patient for initial transition planning/care coordination?assessment.?RN?CM?introduced self and role at [facility].? Pt voices understanding and consents to?assessment?at this time.? Pt resting in bed in no distress at this time.? Pt is A/O at this time and answers all questions appropriately.?? Care providers, pharmacy, and demographics verified/updated at this time. Strata: 1 PCP: Pt states she sees a [facility] PCP, Dr Stark--but unsure how to spell name of physician or if this is the correct way to say it. Specialists: denies Preferred Pharmacy: [facility] @ [place] Insurance: [facility] Dual, [facility] [employer] Prescription Benefit:?yes Living Will/HPOA:?Pt does not currently have LW/HCPOA LNOK: Pt only has one living adult child, son, Isaak. Had a daughter that . Has raised other children and refers to some of them as daughters. Refers to Bhavana as a daughter, stating, I've raised her since she was 14. Also refers to Nataliya as a daughter. Living Arrangements: Pt has been living w/ Nataliya in mobile home w/4 steps to enter, but states there no stove or standard refrig, except for a mini/compact refrig unit. She states her son, Isaak, got fed up with it and demanded I move. She states she has been able to do own ADL's. Transportation:? Nataliya DME: States has the following DME:?walker. She thinks Bhavana has a shower chair, but she is not sure. Pt is not sure if will need other DME @ ms, stating may possible need [facility]SC. HHC/SNF: No hx of either. 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 She does state, though, if SNF is needed, she would be interested in going to [facility]. Pt states short-term plan @ [place] was for her to discharge to Bhavana's home. She currently lives in [place] but is in the process of moving to [place]. She does not know what the home-set up is like as far as how many stories or steps, stating she has never been @ the new location. She then states that the next plan/long-term plan is for her to go to a [facility] behind [address], [place] something, stating she cannot remember the name of it. Pt gave permission for KAITLYN THOMAS to call her son, Isaak, to gather further information. Call placed to Isaak. Pepper answered, stating she was Susannah's mother (Susannah is Isaak's ). Pepper stated would have Susannah call this KAITLYN THOMAS back. Provided w/this KAITLYN THOMAS's phone #. PLAN:??TBD by progress w/therapy and further conversation with pt and family. Brenna MARINON?RN?CM
[2023-12-29] MEDS: oxyCODONE 5 MG Tablet PO (20:38)
--- NOTE | 2023-12-29 23:00 | EX.PCM.CON.G ---
HPI Consult Data Date of Consult: 11/28/23 HPI Narrative Reason for Consultation: GI bleed HPI Narrative: DEON JIMENEZ, is a 78 F who presented to the emergency department at [facility] on 12/28/2023 for back pain after fall. She indicates she has frequent falls. She lives with her daughter in a trailer at this time. She ambulates with a walker at baseline due to mobility issues. She recently had a fall and has been having some increased back pain since that point in time so she came to emergency department. She admits to a new left lower extremity chronic leg wound that has been ongoing for 2 years she states that about a year ago she had complete resolution and then shortly thereafter it reestablished and has been problematic since that point in time. She is currently placing dressings with silver sulfasalazine prescribed by her primary care physician. She denies any systemic symptoms. She complains of chronic constipation and has never had a colonoscopy. She denies any melena or hematochezia. She has no vaginal bleeding. She indicated that if it was not for her back pain she would need to come to the emergency department. She does admit to being previously diagnosed with obstructive sleep apnea but has never gone for CPAP assessment. Vital signs on presentation showed a temperature of 97.9, heart rate 80, blood pressure 152/62, respiratory rate was 18 oxygen saturations were 95% on room air. CBC shows multiple abnormalities with a leukocytosis having a 14.7 white count and an 81.7% neutrophilia. She has a microcytic anemia with a hemoglobin of 7.4 and MCV of 78.3 with all indices being abnormal. Platelet count was normal. Chemistry shows a sodium of 133 with normal renal function. Glucose is 133 nonfasting. LFTs are normal. Troponin was 25. ESR was elevated at 91. CRP is 231. EKG was normal sinus rhythm without any ST-T wave changes consistent with acute ischemia and intervals were normal. CT the brain shows only age-related changes and no acute findings. CT of the cervical spine showed no acute bony abnormality. Chest x-ray showed no evidence of any acute cardiopulmonary disease. I was consulted due to patient's iron deficiency anemia and suspected GI bleed. [facility] Medical History AJAY (obstructive sleep apnea) Morbid obesity Chronic edema Hypothyroidism Congenital skull deformity Open leg wound Home Medications ?Medication ?Instructions ?Recorded ?Last Taken ?Type furosemide 20 mg tablet 20 mg PO DAILY PRN swelling 12/28/23 12/28/23 History levothyroxine 75 mcg tablet 25 mcg PO DAILY Hypothyroid 12/28/23 12/30/23 History acetaminophen 325 mg tablet 650 mg (2 x 325 mg) PO Q6H PRN PRN 01/04/24 Unknown Rx Pain 1-10 Or Fever>100.7 #0 tabs albuterol sulfate 2.5 mg/3 mL 2.5 mg (3 mL) inhalation Q2H PRN 01/04/24 Unknown Rx (0.083 %) solution for nebulization PRN SOB &/OR WHEEZING #0 mL ferrous sulfate 325 mg (65 mg 325 mg PO DAILY@1200 #0 tabs 01/04/24 Unknown Rx iron) tablet (FeroSul) food supplemt, lactose-reduced 120 ml PO 4X/DAY #0 mL 01/04/24 Unknown Rx 0.08 gram-1.5 kcal/mL oral liquid (Ensure Plus High Protein) ibuprofen 200 mg capsule 400 mg (2 x 200 mg) PO Q6H PRN 01/04/24 Unknown Rx fever or pain #20 caps cefdinir 300 mg capsule 300 mg PO BID #6 caps 01/05/24 Unknown Rx Allergy/AdvReac Type Severity Reaction Status Date / Time Penicillins Allergy Intermediate Rash Verified 12/28/23 20:30 Family History Other Heart disease Hypertension Thyroid disorder Surgical History (Updated 12/30/23 @ 18:[address] Jaime Benson MD) S/P appendectomy History of 2 sections History of tonsillectomy Surgical History unable to obtain Social History household members: children housing: other details: Trailer Smoking Status: Former smoker alcohol intake: current alcohol intake frequency: holidays/special occasions only substance use type: does not use additional social history: Ambulates at baseline with a walker ROS Constitutional Constitutional: Denies anorexia, change in weight, chills, fatigue, fever(s), malaise, night sweats, weakness or other Eyes Eyes: Denies blurry vision, change in eye color, change in vision, discharge from eye(s), double vision, erythema, eye pain, loss of vision or other ENT HEENT: Denies abnormal hearing, dysphagia, ear pain, epistaxis, headache(s), hearing loss, nasal congestion, nasal discharge, post nasal drip, sinus pressure, sore throat or other Cardiovascular Cardiovascular: Denies chest pain, claudication, dyspnea on exertion, edema, lightheadedness, orthopnea, palpitations, paroxysmal nocturnal dyspnea, rapid heart rate, syncope or other Respiratory/Chest Respiratory/Chest: Denies cough, dyspnea, excessive phlegm production, hemoptysis, productive cough, shortness of breath at rest, shortness of breath with exertion, wheezing or other Gastrointestinal Gastrointestinal: Reports constipation; Denies abdominal pain, coffee ground emesis, diarrhea, dyspepsia, hematemesis, hematochezia, loose stools, melena, nausea, vomiting or other Genitourinary Genitourinary: Denies burning urination, difficulty urinating, dysuria, hematuria, nocturia, urinary frequency, urinary hesitancy, urinary incontinence, urinary urgency or other Musculoskeletal Musculoskeletal: Reports back pain, joint pain and joint stiffness; Denies arthralgias, joint swelling, myalgias, neck pain or other Integumentary Integumentary: Reports wounds; Denies dry skin, jaundice, lesions, new lesions, pruritus or rash Neurologic Neurologic: Reports abnormal gait; Denies abnormal speech, confusion, disequilibrium, dizziness, focal weakness, headache(s), numbness, paresthesias, seizure-like activity, seizures, syncope, tingling, tremor(s) or other Psychiatric Psychiatric: Denies anxiety, depression, homicidal ideation, suicidal ideation or other Endocrine Endocrinology: Denies change in body appearance, cold intolerance, excessive sweating, heat intolerance, polydipsia, polyuria or other Hematologic/Lymphatic Hematologic/Lymphatic: Denies anemia, easy bleeding, easy bruising, lymphadenopathy or other Allergic/Immunologic Allergic/Immunologic: Denies rhinitis, hives, eczemia, asthma or other Physical Exam Const alert and no apparent distress HEENT head/scalp atraumatic and moist oral mucous membranes Resp normal respiratory effort and no retractions Extremity Extremity Narrative: Legs wrapped, did not remove. Neuro Sensorium / Orientation: awake and alert Lab / Micro Data 01/05/24 06:13 01/05/24 06:13 Rhythm Strip Rhythm Strip: Sinus Rhythm Rate: 79 Ectopy: None Assessment & Plan Assessment/Plan (1) Leukocytosis: (2) Microcytic anemia: (3) Hyponatremia: (4) Abnormal finding on urinalysis: (5) Constipation: (6) Generalized weakness: (7) Debility: (8) Cellulitis of leg, left: (9) Elevated blood pressure reading: (10) Intertriginous candidiasis: PLAN: Plan 78-year-old with iron deficiency anemia. She should undergo an upper endoscopy to evaluate upper GI tract and likely need colonoscopy. She was explained alternatives, risk, benefits including not withstanding bleeding, infection, sepsis, perforation, need for emergent and . She will have an ASA of 3. Microcytic anemia -No obvious signs of blood loss --> I am highly concerned for GI malignancy -patient denies vaginal bleeding -Ferritin, reticulocyte count, iron studies are pending -Guaiac stool pending -Repeat CBC in a.m. -hold off on DVT prophylaxis for now and if hemoglobin is stable may be able to consider - Charges/Coding Visit Charges Inpatient E&M: 70103 Init Hosp L3
[2023-12-30] VITALS (20 sets, daily range): BP systolic 129–181; BP diastolic 52–80; PULSE 76–86; RESP 16–22; TEMP 36.2–37.3; O2SAT 95–98; BMI 42.5
[2023-12-30] MEDS: Vancomycin HCl 1,750 MG in 0.9% Normal Saline (500mL Bag) 500 ML 250 MG IV (02:18)
[2023-12-30] MEDS: Nystatin Powder 15gm Bottle 1 APPLIC TOPICAL ×3 (02:28→21:44)
[2023-12-30] MEDS: oxyCODONE 5 MG Tablet PO (02:31)
[2023-12-30] MEDS: Acetaminophen 325 MG Tablet 650 MG PO ×3 (02:37→21:54)
[2023-12-30] MEDS: Levothyroxine 25 MCG TABLET PO (05:52)
[2023-12-30] MEDS: Menthol/Lanolin/Calamine/Znox 113 GM Tube 1 APPLIC TOPICAL ×2 (08:20→21:44)
[2023-12-30 08:38] LABS: Absolute Lymphocyte Count 1.76 X10^3/uL (0.83-4.51); Absolute Neutrophil Count 11.5 X10^3/uL (2.0-7.7); Basophil# 0.03 X10^3/uL; Basophil% 0.2 % (0-1); Eosinophil# 0.02 X10^3/uL; Eosinophils% 0.1 % (0-5); Hematocrit 21.7 % (37-47); Hemoglobin 6.7 g/dL (12.0-15.0); Lymphocyte # 1.76 X10^3/ul (0.83-4.51); Lymphocyte % 12.4 % (19-41); Mean Corp Hgb Conc 30.9 g/dL (32-36); Mean Corpuscular Hgb 24.2 pg (27.0-32.0); Mean Corpuscular Volume 78.3 fL (81-99); Mean Platelet Vol. 9.9 fl (6.2-12.0); Monocyte# 0.65 X10^3/uL; Monocyte% 4.6 % (0-10); NRBC Flagged by Analyzer 0 % (0-5); Neutrophil # 11.48 X10^3/uL (2.7-7.7); Neutrophil % 81.2 % (47-70); Platelet Count 296 K/mm3 (150-450); RBC Distribution Width CV 19.4 % (11.6-14.6); RBC Distribution Width SD 55.5 fl (35.1-43.9); Red Blood Count 2.77 M/mm3 (4.2-5.4); White Blood Count 14.2 K/mm3 (4.4-11.0)
[2023-12-30 08:58] LABS: Anion Gap 6 (5-15); BUN 9 mg/dL (7-18); BUN/Creat Ratio 13.4 RATIO (10-20); Chloride 99 mmol/L (98-107); Creatinine, Serum 0.67 mg/dL (0.55-1.02); EST Glomerular Filtration Rate 90 mL/min (>60); Est Glom Filt Rate - Afr Amer 109 mL/min (>60); Glucose 121 mg/dL (74-106); Potassium 3.3 mmol/L (3.5-5.1); Sodium Level 133 mmol/L (136-145)
[2023-12-30] MEDS: levoFLOXacin IV 750 MG/150 ML BAG 100 MG IV (09:38)
[2023-12-30] MEDS: 0.9% Saline Lock 10 ML Syringe IV ×3 (09:43→21:45)
--- NOTE | 2023-12-30 10:51 | PN_ITS ---
Subjective Subjective Patient seen and examined. She felt well and had no complaints. She had an uneventful night. Review of systems otherwise negative. Hemoglobin today is down to 6.7. Objective Data Objective Data Vital Signs: Vital Signs Temp Pulse Resp BP Pulse Ox O2 Del Method 97.1 F L 77 18 154/64 H 95 Room Air 12/30/23 08:11 12/30/23 08:11 12/30/23 08:11 12/30/23 08:11 12/30/23 08:11 12/30/23 08:16 Oxygen Delivery Method Room Air Weight: 255 lb 8.252 oz Body Mass Index (BMI) 42.5 Intake & Output: Intake and Output for Last 24 Hours 12/28/23 12/29/23 12/30/23 23:59 23:59 23:59 Intake Total 1765 / 1765 535 / 535 Output Total 750 / 750 Balance 1015 / 1015 535 / 535 Lab / Micro Data 12/30/23 08:25 12/30/23 08:25 Labs: Laboratory Results - last 24 hr 12/29/23 11:15: S.aureus Protein A PCR Cancelled, MRSA (PCR) Cancelled 12/30/23 08:25: WBC 14.2 H, RBC 2.77 L, Hgb 6.7 L, Hct 21.7 L, MCV 78.3 L, MCH 24.2 L, MCHC 30.9 L, RDW Std Deviation 55.5 H, RDW Coeff of Collins 19.4 H, Plt Count 296, MPV 9.9, Immature Gran % (Auto) 1.500 H, Neut % (Auto) 81.2 H, Lymph % (Auto) 12.4 L, Waller % (Auto) 4.6, Eos % (Auto) 0.1, Baso % (Auto) 0.2, A bsolute Neuts (auto) 11.5 H, Absolute Lymphs (auto) 1.76, Nucleated RBC % 0, S odium 133 L, Potassium 3.3 L, Chloride 99, Carbon Dioxide 28.0, Anion Gap 6, BUN 9, Creatinine 0.67, Estim Creat Clear Calc 74.90, Est GFR (MDRD) Af Amer 109, Est GFR (MDRD) Non-Af 90, BUN/Creatinine Ratio 13.4, Glucose 121 H, Calcium 8.0 L Micro: Microbiology 12/28/23 21:56 Urine Catheter - Catheter Urine Culture - Preliminary Presumptive E. coli GNR lactose inclusion special educator 12/28/23 23:15 Blood Culture (Wb) - Anticubital Left Blood Culture - Preliminary Streptococcus group G 12/29/23 11:15 Wound - Leg, Left Gram Stain - Final 12/29/23 11:15 Wound - Leg, Left Skin and Soft Tissue MRSA/MSSA (PCR - Final 12/29/23 00:40 Stool Stool Occult Blood (MELANIE) - Final 12/28/23 21:56 Mucosa - Nasopharyngeal SARS-CoV-2, Influenza & RSV (PCR) - Final Rhythm Strip Rhythm Strip: Sinus Rhythm Rate: 79 Ectopy: None Physical Exam Const alert, oriented x3, no apparent distress and well nourished; Negative for average body habitus or healthy appearing Constitutional Narrative: obese General Appearance: cooperative HEENT normocephalic, head/scalp atraumatic, hearing grossly normal bilaterally, moist oral mucous membranes and oropharynx normal Eyes PERRL and EOMs intact bilaterally Neck no lymphadenopathy and supple Lymph Lymphatic: no lymphadenopathy noted and no lymphedema noted Resp normal respiratory effort, normal air movement, no retractions, no use of accessory muscles and clear to auscultation bilaterally Cardio regular rate, regular rhythm, S1 normal heart sound and S2 normal heart sound GI normal to inspection, nondistended, normoactive bowel sounds, soft to palpation, non-tender and non-distended GI Narrative: obese abdomen Extremity Extremity Narrative: RLE wrapped in bandage on lower koroma. General Extremity: no tenderness to palpation of joints or extremities Skin Skin Narrative: as under extremity. Neuro oriented x3, CN's II-XII intact bilaterally, moves all extremities, no focal motor deficits, no sensory deficits noted and deep tendon reflexes 2+ bilaterally Speech: speech normal Motor Exam: strength 5/5 throughout and general weakness Psych thought process normal, cooperative and affect normal Appearance: appropriate Assessment & Plan Assessment/Plan (1) Cellulitis of leg, left: (2) Microcytic anemia: PLAN: Plan #Cellulitis of the LLE * LLE wrapped in bandage. * wound cultures ordered. 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 wound care consulted. * Blood cultures growing strep group G. Urine cultures growing E. coli and gram-negative rods lactose inclusion special educator. * #Iron deficiency anemia * Hb today is down to 6.7. Was 1.3 yesterday. * Iron studies showed iron deficiency anemia * she has never had a colonoscopy. She denies any dark stools or coffee ground emesis. * start on IV pantoprazole * GI consulted due to concern about malignancy. Await GI evaluation. * #Chronic constipation: on miralax prn. #Elevated blood pressure * BP has now improved. not on any BP meds. * will monitor, and if BP goes up, with start on oral meds * IV hydralazine prn * #Debility and generalised weakness due to mechanical falls * patient says she has been falling at home * PT/OT on board. Fall precautions * #Hyponatremia: resolved. #Hypothyroidism:on synthroid #AJAY: Patient not on CPAP she has not been evaluated for it. To follow up with pulmonology on outpatient basis for evaluation for CPAP. DVT prophylaxis: SCDs. No antioagulation due to anemia. Charges/Coding Visit Charges Inpatient E&M: 43784 Subs Hosp L3
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
--- NOTE | 2023-12-30 12:51 | CASEMGMT ---
Social Work- TCU declined referral. CARITO called Susannah to advise; Susannah requests referral to [facility] per pt request to d/c to TCU. CARITO advised DCA.CARITO to remain available to follow. MEGAN Azevedo
[2023-12-30 13:53] LABS: Vancomycin, Trough Level 25.6 ug/mL (5.0-15.0)
[2023-12-30] MEDS: Ensure Plus High Protein 120 ML LIQUID PO (14:17)
--- NOTE | 2023-12-30 14:20 | PCM.RX.CS ---
Consult Antibiotic Management Pharmacy has been consulted to manage selected antibiotic: Vancomycin Type of Intervention Type of Consult: Follow-up Labs Labs: Sodium 133 mmol/L (136-145) L 12/30/23 08:25 Potassium 3.3 mmol/L (3.5-5.1) L 12/30/23 08:25 Chloride 99 mmol/L (98-107) 12/30/23 08:25 Carbon Dioxide 28.0 mmol/L (21.0-32.0) 12/30/23 08:25 Anion Gap 6 (5-15) 12/30/23 08:25 BUN 9 mg/dL (7-18) 12/30/23 08:25 Creatinine 0.67 mg/dL (0.55-1.02) 12/30/23 08:25 Est GFR (MDRD) Af Amer 109 mL/min (>60) 12/30/23 08:25 Est GFR (MDRD) Non-Af 90 mL/min (>60) 12/30/23 08:25 BUN/Creatinine Ratio 13.4 RATIO (10-20) 12/30/23 08:25 Glucose 121 mg/dL (74-106) H 12/30/23 08:25 Vancomycin Trough 25.6 ug/mL (5.0-15.0) H 12/30/23 12:46 Microbiology Microbiology: Microbiology 12/29/23 11:15 Wound - Leg, Left Gram Stain - Final 12/29/23 11:15 Wound - Leg, Left Wound Culture - Preliminary Mixed Gram Pos & Gram Neg Org 12/29/23 11:15 Wound - Leg, Left Skin and Soft Tissue MRSA/MSSA (PCR - Final 12/28/23 21:56 Urine Catheter - Catheter Urine Culture - Preliminary Presumptive E. coli GNR lactose frog or oyster farmworker 12/28/23 23:15 Blood Culture (Wb) - Anticubital Left Blood Culture - Preliminary Streptococcus group G 12/29/23 00:40 Stool Stool Occult Blood (MELANIE) - Final 12/28/23 21:56 Mucosa - Nasopharyngeal SARS-CoV-2, Influenza & RSV (PCR) - Final Pharmacy Plan for Drug Dosing Pharmacy Plan for Drug Dosing: VANCOMYCIN LEVEL RECEIVED Current Vancomycin Dose: 1750MG Q12 Number of Doses Received: 3 Vancomycin Level: 25.6 MG/DL Hours Since Last Dose: 10.5 Renal Function: SCR 0.67 MG/DL, CRL 74.9 ML/MIN Renal Function Trend: IMPROVED Lab/Micro: MIXED GP ORGANISM IN WOUND CX Vancomycin Plan/Comments: 10.5 hour trough is supratherapeutic at 25.6 mg/dL (goal 15-20). Last dose was given later and trough was drawn a little early so true trough is likely lower but it is difficult to say if it would still be high. Will hold dosing for now and get a random level in 12 hours. Pending Level: 12/31/23 @ 0100 Pharmacy Service will continue to monitor and adjust dosing as required.
--- NOTE | 2023-12-30 14:37 | CASEMGMT ---
Discharge Planning Referral sent to [facility] via [facility]. Federica Brown DC Planning Asst.
--- NOTE | 2023-12-30 15:03 | CASEMGMT ---
Discharge Planning A list of?SNF providers including quality and resource use data and consistent with the patient's preferred geographic region, medical needs, and insurance network was created in [employer] Guide.? This list was provided to the SW. Federica Brown Discharge Planning Asst.
--- NOTE | 2023-12-30 17:00 | IMM_PTH ---
PATIENT: DEON JIMENEZ LOC: MS3 U#:[id number] AGE/SX: 78/F [place] [facility] [place]28[place]: Dr. Levy Christianson DO : 1945 BED: 1 DIS: 01/05/2024 SPEC #: [id number] RECD: 01/02/24 08:32 STATUS: KENNY REQ #: [id number] FREDIS: 12/30/23 17:[address]: Alex Reaves DEPT: IMMUNOHISTOCHEMISTRY RECD BY: Serge Polanco ENTERED: 01/02/24 08:33 SP TYPE: IMMUNO OTHR DR: DO Dr. Hailey Smith MD Dr. Nana Yaa Koram, MD Tissues: Gastric mucous membrane Procedures: H Pylori (initial) PHYSICIAN & INSTITUTION [place] [address] SPECIMEN INFORMATION: Tissue Source: Gasrtic antrum biopsy Clinical Info: Anemia Specimen Number: [id number] CPT code: 58808 METHODOLOGY: Deparaffinized sections of prefer/formalin-fixed tissue or PAP/DQ stained slides are incubated with monoclonal/polyclonal antibodies/oligonucleotide probes. Localization is made via biotin free immunoperoxidase method. Appropriate controls are performed and reacted as expected. Results on target cell population are indicated in the following table: RESULTS: ANTIBODY / CLONE RESULT H Pylori (polyclonal) negative These tests were developed and their performance characteristics determined by [facility]. They may not have been cleared or approved by the U.S. Food and Drug Administration. The FDA has determined that such clearance or approval is not necessary. The above immunohistochemical/dualISH markers are ordered and reviewed by the Pathologist. INTERPRETATION: Gastric antrum, biopsy: Negative for Helicobacter pylori organisms. SOLOMON/ 01/04/2024
--- NOTE | 2023-12-30 17:00 | EGD_PTH ---
PATIENT: DEON JIMENEZ LOC: MS3 U#:[id number] AGE/SX: 78/F ROOM: [facility] [place] RE12/28/[address]: Dr. Levy Christianson DO : 1945 BED: 1 DIS: 01/05/2024 SPEC #: [id number] RECD: 01/02/24 07:14 STATUS: KENNY BRICEMaria Esther #: [id number] FREDIS: 12/30/23 17:[address]: Alex Reaves DEPT: SURGICAL PATHOLOGY RECD BY: Iwona Chen ENTERED: 01/02/24 09:22 SP TYPE: EGD BIOPSY CARLOS ENRIQUE DR: DO Dr. Hailey Smith MD Dr. Nana Yaa Koram, MD Tissues: Gastric mucous membrane Procedures: Surgery Specimen Level IV HEADER OPERATION: EGD PRE-OP DIAGNOSIS: Anemia TISSUE SUBMITTED: Gastric antrum biopsy MICROSCOPIC DIAGNOSIS Gastric antrum, biopsy: Chronic gastritis. AMJoaquín 01/03/2024 COMMENT The results of immunohistochemistry for Helicobacter pylori will be reported separately ([id number]). MICROSCOPIC DESCRIPTION Slides are reviewed. GROSS DESCRIPTION Received in fixative is one container labeled with the patient's name and designated Gastric antrum biopsy. The specimen consists of two irregular fragments of light bueno soft tissue that in aggregate measure 0.8 x 0.3 x 0.1 cm. The specimen is totally submitted in one cassette. 01/02/2024 TC:3 CPT:97476
[2023-12-30] MEDS: 0.9% Normal Saline (1000mL) 1,000 ML 15 ML IV (18:37)
--- NOTE | 2023-12-30 18:43 | PCM.PRE.AN2 ---
ASA Classification* ASA Classification ASA Classification: 3 Assessment & Plan Anesthesia* Anesthesia Assessment Anesthesia Assessment: Discussed sedation and/or anesthesia options, risks, benefits, and alternatives with patient/parents/legal guardian/POA. Questions invited. The patient/parents/legal guardian/POA seems to understand and agrees to proceed with anesthesia plan. Reviewed the physical assessment, medical history, allergy history and patient home medications list prior to surgery/procedure/anesthetic and documented any changes. Performed airway and anesthesia risk assessments. Anesthesia Type Anesthesia Type: MAC History Source History Obtained from:: Patient and Chart Anesthesia Focused Assessment* Temperature: 98.0 F Pulse Rate: 80 Blood Pressure: 157/80 Respiratory Rate: 18 Pulse Ox: 96 Oxygen Delivery Method: Room Air Airway Assessment Mouth opens: 2 cm Mallampati Score: IV Teeth Condition: Chipped/Broken (Multiple broken and chipped.) Neck Range of motion (ROM): Limited ROM (Significantly decreased extension.) Focused Labs Anesthesia Preop lab: CBC WBC 14.2 K/mm3 (4.4-11.0) H 12/30/23 08:25 RBC 2.77 M/mm3 (4.2-5.4) L 12/30/23 08:25 Hgb 6.7 g/dL (12.0-15.0) L 12/30/23 08:25 Hct 21.7 % (37-47) L 12/30/23 08:25 Plt Count 296 K/mm3 (150-450) 12/30/23 08:25 CHEMISTRY Potassium 3.3 mmol/L (3.5-5.1) L 12/30/23 08:25 Sodium 133 mmol/L (136-145) L 12/30/23 08:25 Magnesium 1.9 mg/dL (1.6-2.6) 12/29/23 06:48 Phosphorus 2.8 mg/dL (2.5-4.9) 12/29/23 06:48 BUN 9 mg/dL (7-18) 12/30/23 08:25 Creatinine 0.67 mg/dL (0.55-1.02) 12/30/23 08:25 Glucose 121 mg/dL (74-106) H 12/30/23 08:25 TSH 4.590 uIU/mL (0.358-3.740) H 12/28/23 21:08 COAG Pre-Assessment Diagnosis/Proposed Procedure Planned Operative Procedure(s): Esophagogastroduodenoscopy with possible biopsies and/or cautery Anesthesia History 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 When Was Last Pacemaker Check QUESTION #4 FULL TEXT: You/Your Family Experience fever (hyperthermia) with Anesthesia Last Oral Intake Last Oral intake: Last Oral Intake NPO since 13:00 12/30/23 15:14 Meds taken in AM with sips of No 12/30/23 15:14 water? Meds patient instructed to take am of surgery PONV PONV - power cleaner operator: PONV - power cleaner operator Female HX of Motion Sickness HX of N/V After Surgery Non-Smoker Duration of Surgery greater than 60 minutes Number of Risk Factors PONV Score Height & Weight Height & Weight: Anesthesia: Height & Weight Height 5 ft 5 in 12/30/23 15:14 Weight: 115.9 kg 12/30/23 15:14 Body Mass Index (BMI) 42.5 12/30/23 15:14 Respiratory Assessment Respiratory Assessment - power cleaner operator: Respiratory Tract Infection Hx - power cleaner operator Hx Respiratory Tract Infection No 12/30/23 15:16 Any additional information?: Yes Hx Respiratory Tract Infection: Yes (Patient is currently congested.) STOP Sleep Apnea STOP Sleep Apnea - power cleaner operator: STOP Sleep Apnea - power cleaner operator Hx Hypertension No 12/29/23 11:16 Hx Sleep Apnea No 12/29/23 01:06 CPAP BIPAP Do you snore loudly (louder No 12/29/23 01:06 than talking or can be heard Do you often feel tired/ Yes 12/29/23 01:06 fatigued/ sleepy during daytime? Has anyone observed you stop No 12/29/23 01:06 breathing during sleep? STOP Results Negative 12/29/23 01:06 QUESTION #5 FULL TEXT : Do you snore loudly (louder than talking or can be heard through closed doors)? 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 Specify any problems Hx of Preganancy in last 3 No 12/29/23 01:06 Months Nurse Filling Out Transfusion EVIZZO 12/29/23 01:06 & Questions: Date: 12/29/23 12/29/23 01:06 Time: 01:39 12/29/23 01:06 Patient unable to answer at this time (ie. confused, unrespo /Reproduction History /Reproductive History - power cleaner operator: /Reproductive Hx- power cleaner operator Hx Now No 12/30/23 15:16 Gestational Age (in weeks): EDC: Hx Hx Para Hx Section SAB No 12/30/23 15:16 Active Medications Active Medications: Current Medications Generic Name Dose Route Start Last Admin Trade Name Freq PRN Reason Stop Dose Admin Acetaminophen 650 mg 12/29/23 01:05 12/30/23 14:17 Acetaminophen 325 Mg Tablet PO 650 mg Q6H PRN PRN Administration Pain 1-10 Or Fever>100.7 Albuterol Sulfate 2.5 mg 12/29/23 01:05 Albuterol 2.5 Mg/3 Ml Vial.Neb. INHALATION Q2H PRN PRN SOB &/OR WHEEZING Calamine/Phenol 1 applic 12/30/23 10:00 12/30/23 08:20 Menthol/Lanolin/Calamine/Znox 113 Gm Tube TOPICAL 1 applic BID LUIZ Administration Protocol Hydralazine HCl 10 mg 12/29/23 01:05 12/29/23 20:45 Hydralazine 20 Mg/Ml Vial IV 10 mg Q6H PRN PRN Administration SBP>160 Protocol Vancomycin IV-PHARMACY TO DOSE 500 mls @ 250 mls/hr 12/29/23 01:05 1 each/ Sodium Chloride IV X1 PRN Rx to Dose Protocol Levofloxacin 750 mg in 150 mls @ 100 mls/hr 12/29/23 10:00 12/30/23 11:11 Levaquin Iv IV Infused Q24 LUIZ Infusion Sodium Chloride 1,000 mls @ 15 mls/hr 12/30/23 18:05 12/30/23 18:37 IV 15 mls/hr .Q48H LUIZ Administration Levothyroxine Sodium 25 mcg 12/29/23 06:00 12/30/23 05:52 Levothyroxine 25 Mcg Tablet PO 25 mcg DAILY@0600 LUIZ Administration Melatonin 3 mg 12/29/23 01:05 Melatonin 3 Mg Tablet PO QHS PRN PRN INSOMNIA Nutritional Formula (Lactose Free) 120 ml 12/29/23 10:00 12/30/23 15:48 Ensure Plus High Protein 120 Ml Liquid PO Not Given 4X/DAY LUIZ Nystatin 1 applic 12/29/23 06:00 12/30/23 14:15 Nystatin Powder 15gm Bottle TOPICAL 1 applic TID LUIZ Administration Protocol Ondansetron HCl 4 mg 12/29/23 01:05 Ondansetron 4 Mg/2 Ml Vial IV Q8H PRN PRN NAUSEA/VOMITING Oxycodone HCl 5 mg 12/29/23 01:05 12/30/23 02:31 Oxycodone 5 Mg Tablet PO 5 mg Q6H PRN PRN Administration Pain Score 4-10 or Pre PT/OT Polyethylene Glycol 17 gm 12/29/23 10:00 12/30/23 08:22 Polyethylene Glycol 3350 17 Gm Packet PO Not Given BID LUIZ Senna/Docusate Sodium 2 tablet 12/29/23 01:05 Senna/Docusate Sodium 1 Tablet PO BID PRN PRN Constipation Sodium Chloride 10 - 40 ml 12/29/23 01:06 12/30/23 09:43 0.9% Saline Lock 10 Ml Syringe IV 10 ml UD PRN Administration SALINE FLUSH Vancomycin Protocol 1 lab 12/30/23 23:00 Vancomycin Trough/Random Due [facility] 12/31/23 03:00 DAILY [facility] Medical History (Updated 12/30/23 @ 18:[address] Jaime Benson MD) AJAY (obstructive sleep apnea) Morbid obesity Chronic edema Hypothyroidism Congenital skull deformity Open leg wound Home Medications ?Medication ?Instructions ?Recorded ?Last Taken ?Type furosemide 20 mg tablet 20 mg PO DAILY PRN swelling 12/28/23 12/28/23 History levothyroxine 75 mcg tablet 25 mcg PO DAILY Hypothyroid 12/28/23 12/30/23 History silver sulfadiazine 1 % topical 1 applic topical BID 12/28/23 12/28/23 History cream Allergy/AdvReac Type Severity Reaction Status Date / Time Penicillins Allergy Intermediate Rash Verified 12/28/23 20:30 Family History Other Heart disease Hypertension Thyroid disorder Surgical History (Updated 12/30/23 @ 18:[address] Jaime Benson MD) S/P appendectomy History of 2 sections History of tonsillectomy Surgical History unable to obtain Social History household members: children housing: other details: Trailer Smoking Status: Former smoker alcohol intake: current alcohol intake frequency: holidays/special occasions only substance use type: does not use additional social history: Ambulates at baseline with a walker Review of Systems (Anesthesia) ROS Narrative System reviewed and no additional complaints, except as documented.
--- NOTE | 2023-12-30 19:22 | OP.CCLET_ITS ---
12/30/2023 Hailey Serna [address] [place] [address] Re : Upper GI endoscopy procedure for Tiffany Ko Dear Dr. Serna This procedure was performed on Saturday, December 30, 2023. My impressions and recommendations are as follows: Impressions : - Normal esophagus. - Granular mucosa in the antrum. Biopsied. - No gross lesions in the second portion of the duodenum. Recommendations : - [facility]. - Clear liquid diet. - Continue present medications. My findings are described in the full procedure note, which is enclosed. If I can be of further assistance, please feel free to contact me at . Sincerely, Alex Reaves, 12/30/2023 7:21:37 PM This report has been signed electronically.
--- NOTE | 2023-12-30 19:22 | OP.EGD_ITS ---
Patient Name: Tiffany Ko Procedure Date: 12/30/2023 6:41 PM Date of : 1945 Age: 78 Procedure: Upper GI endoscopy Indications: Iron deficiency anemia, Active gastrointestinal bleeding Providers: Alex Reaves DO Medicines: Monitored Anesthesia Care Patient Profile: This is a 78 year old female. Refer to note in patient chart for documentation of history and physical. Patient has symptoms. Complications: No immediate complications. Procedure: Pre-Anesthesia Assessment: - Prior to the procedure, a History and Physical was performed, and patient medications and allergies were reviewed. The patient is competent. The risks and benefits of the procedure and the sedation options and risks were discussed with the patient. All questions were answered and informed consent was obtained. Patient identification and proposed procedure were verified by the physician in the pre-procedure area. Mental Status Examination: alert and oriented. Airway Examination: normal oropharyngeal airway and neck mobility. Respiratory Examination: clear to auscultation. CV Examination: normal. Prophylactic Antibiotics: The patient does not require prophylactic antibiotics. Prior Anticoagulants: The patient has taken no anticoagulant or antiplatelet agents except for NSAID medication. ASA Grade Assessment: II - A patient with mild systemic disease. After reviewing the risks and benefits, the patient was deemed in satisfactory condition to undergo the procedure. The anesthesia plan was to use monitored anesthesia care (MAC). Immediately prior to administration of medications, the patient was re-assessed for adequacy to receive sedatives. The heart rate, respiratory rate, oxygen saturations, blood pressure, adequacy of pulmonary ventilation, and response to care were monitored throughout the procedure. The physical status of the patient was re-assessed after the procedure. After obtaining informed consent, the endoscope was passed under direct vision. Throughout the procedure, the patient's blood pressure, pulse, and oxygen saturations were monitored continuously. The gastroscope was introduced through the mouth, and advanced to the second part of duodenum. The upper GI endoscopy was accomplished without difficulty. The patient tolerated the procedure well. Scope In: 7:10:25 PM Scope Out: 7:14:11 PM Total Procedure Duration Time 0 hours 3 minutes 46 seconds Findings: The examined esophagus was normal. Segmental mild mucosal changes characterized by granularity were found in the gastric antrum. Biopsies were taken with a cold forceps for histology. Verification of patient identification for the specimen was done. Biopsies were taken with a cold forceps for Helicobacter pylori testing. Verification of patient identification for the specimen was done. Estimated blood loss was minimal. No gross lesions were noted in the second portion of the duodenum. Impression: - Normal esophagus. - Granular mucosa in the antrum. Biopsied. - No gross lesions in the second portion of the duodenum. Recommendation: - [facility]. - Clear liquid diet. - Continue present medications. Procedure Code(s): --- Professional --- 64824, Esophagogastroduodenoscopy, flexible, transoral; with biopsy, single or multiple CPT copyright 2021 [employer]. All rights reserved. The codes documented in this report are preliminary and upon maintenance worker swimming pool review may be revised to meet current compliance requirements. Alex Reaves DO 12/30/2023 7:21:37 PM This report has been signed electronically. Number of Addenda: 0 Note Initiated On: 12/30/2023 6:41 PM
--- NOTE | 2023-12-30 19:24 | PCM.POST.ANE ---
Anesthesia: Postop Eval I Current Vital Signs Temperature: 98.7 F Pulse Rate: 76 Blood Pressure: 167/71 Respiratory Rate: 16 Pulse Ox: 96 Oxygen Delivery Method: Room Air Assessment Airway patent: Yes Spontaneous unlabored respirations: Yes Mental status: Awake and Calm nausea: No Vomiting: No Anesthesia Complication: No Fluid Hydration Crystalloid volume administer (ml): 200 Total IV fluid infused: 200 Progress Note Anesthesia document: Postop Eval 1 completed: Yes
[2023-12-30] MEDS: hydrALAZINE 20 MG/ML Vial 10 MG IV (20:08)
--- NOTE | 2023-12-30 23:19 | PCM.POSTANE2 ---
Anesthesia Postop Eval I Sum Postop Eval Completion status Anesthesia document: Postop Eval 1 completed: Yes Anesthesia Postop Eval I Summary Anesthesia Postop Eval I Summary: Anesthesia Postop Eval I: Assessment Summary Airway patent Yes 12/30/23 19:27 Spontaneous unlabored Yes 12/30/23 19:27 respirations Mental status Awake,Calm 12/30/23 19:27 nausea No 12/30/23 19:28 Vomiting No 12/30/23 19:28 Anesthesia Postop Eval I: Fluid Summary Crystalloid volume administer 200 12/30/23 19:28 (ml) Colloids volume administered ( ml) Blood Product volume administered (ml) Total IV fluid infused 200 12/30/23 19:28 Anesthesia Postop Eval I: Summary Notes Anesthesia Complication No 12/30/23 19:28 Anesthesia Complication Comment: Post-operative progress note Anesthesia: Postop Eval II Evaluation Mental status: Awake and Calm Pain Level: 0 nausea: No Vomiting: No Complications Anesthesia Complication: No
[2023-12-31 02:02] LABS: Vancomycin, Random Level 16.7 ug/mL (0.0-15.0)
--- NOTE | 2023-12-31 02:24 | PHA.PHARE_ITS ---
Consult Antibiotic Management Pharmacy has been consulted to manage selected antibiotic: Vancomycin Type of Intervention Type of Consult: Follow-up Labs Labs: Sodium 133 mmol/L (136-145) L 12/30/23 08:25 Potassium 3.3 mmol/L (3.5-5.1) L 12/30/23 08:25 Chloride 99 mmol/L (98-107) 12/30/23 08:25 Carbon Dioxide 28.0 mmol/L (21.0-32.0) 12/30/23 08:25 Anion Gap 6 (5-15) 12/30/23 08:25 BUN 9 mg/dL (7-18) 12/30/23 08:25 Creatinine 0.67 mg/dL (0.55-1.02) 12/30/23 08:25 Est GFR (MDRD) Af Amer 109 mL/min (>60) 12/30/23 08:25 Est GFR (MDRD) Non-Af 90 mL/min (>60) 12/30/23 08:25 BUN/Creatinine Ratio 13.4 RATIO (10-20) 12/30/23 08:25 Glucose 121 mg/dL (74-106) H 12/30/23 08:25 Vancomycin Trough 25.6 ug/mL (5.0-15.0) H 12/30/23 12:46 Random Vancomycin 16.7 ug/mL (0.0-15.0) H 12/31/23 01:10 Microbiology Microbiology: Microbiology 12/29/23 11:15 Wound - Leg, Left Gram Stain - Final 12/29/23 11:15 Wound - Leg, Left Wound Culture - Preliminary Mixed Gram Pos & Gram Neg Org 12/29/23 11:15 Wound - Leg, Left Skin and Soft Tissue MRSA/MSSA (PCR - Final 12/28/23 21:56 Urine Catheter - Catheter Urine Culture - Preliminary Presumptive E. coli GNR lactose application lead 12/28/23 23:15 Blood Culture (Wb) - Anticubital Left Blood Culture - Preliminary Streptococcus group G 12/29/23 00:40 Stool Stool Occult Blood (MELANIE) - Final 12/28/23 21:56 Mucosa - Nasopharyngeal SARS-CoV-2, Influenza & RSV (PCR) - Final Pharmacy Plan for Drug Dosing Pharmacy Plan for Drug Dosing: Pharmacy Service will continue to monitor and adjust dosing as required. RANDOM LEVEL 16.7. START 1250MG Q12H AND FOLLOW UP TROUGH PRIOR TO 4TH DOSE Follow-Up Labs Follow-Up Labs: Trough: Vancomycin Date/Time Labs Ordered Labs to be done on [date and time ordered]: 12/31 @ 1400
[2023-12-31] MEDS: Vancomycin HCl 1,250 MG in 0.9% Normal Saline (250mL Bag) 250 ML 167 MG IV (02:26)
[2023-12-31 02:52] VITALS: BP 117/63; PULSE 82; RESP 18; TEMP 36.9; O2SAT 97
[2023-12-31] MEDS: Nystatin Powder 15gm Bottle 1 APPLIC TOPICAL ×3 (05:02→20:25)
[2023-12-31] MEDS: Levothyroxine 25 MCG TABLET PO (05:02)
[2023-12-31 06:00] VITALS: BMI 43.8
[2023-12-31 07:23] LABS: Absolute Lymphocyte Count 1.56 X10^3/uL (0.83-4.51); Absolute Neutrophil Count 10.8 X10^3/uL (2.0-7.7); Basophil# 0.05 X10^3/uL; Basophil% 0.4 % (0-1); Eosinophil# 0.15 X10^3/uL; Eosinophils% 1.1 % (0-5); Hematocrit 28.4 % (37-47); Hemoglobin 9.2 g/dL (12.0-15.0); Lymphocyte # 1.56 X10^3/ul (0.83-4.51); Lymphocyte % 11.6 % (19-41); Mean Corp Hgb Conc 32.4 g/dL (32-36); Mean Corpuscular Hgb 25.6 pg (27.0-32.0); Mean Corpuscular Volume 79.1 fL (81-99); Mean Platelet Vol. 10.3 fl (6.2-12.0); Monocyte# 0.62 X10^3/uL; Monocyte% 4.6 % (0-10); NRBC Flagged by Analyzer 0 % (0-5); Neutrophil # 10.78 X10^3/uL (2.7-7.7); Neutrophil % 80.5 % (47-70); Platelet Count 298 K/mm3 (150-450); RBC Distribution Width CV 17.9 % (11.6-14.6); RBC Distribution Width SD 50.6 fl (35.1-43.9); Red Blood Count 3.59 M/mm3 (4.2-5.4); White Blood Count 13.4 K/mm3 (4.4-11.0)
[2023-12-31 08:27] LABS: Anion Gap 6 (5-15); BUN 9 mg/dL (7-18); BUN/Creat Ratio 13.1 RATIO (10-20); Calcium,Total 8.3 mg/dL (8.5-10.1); Chloride 100 mmol/L (98-107); Creatinine, Serum 0.69 mg/dL (0.55-1.02); EST Glomerular Filtration Rate 88 mL/min (>60); Est Glom Filt Rate - Afr Amer 107 mL/min (>60); Estimated Creatinine Clearance 76.16 ml/min; Glucose 139 mg/dL (74-106); Potassium 3.6 mmol/L (3.5-5.1); Sodium Level 133 mmol/L (136-145)
[2023-12-31] MEDS: Acetaminophen 325 MG Tablet 650 MG PO ×2 (08:50→20:19)
[2023-12-31] MEDS: oxyCODONE 5 MG Tablet PO ×2 (08:51→20:19)
--- NOTE | 2023-12-31 09:04 | CASEMGMT ---
Addendum entered by Altagracia Montes 12/31/23 10:28: Social Work- Pt to have procedure; physician indicates pt will not be d/c ready over the weekend. Precert will be started Tuesday. MEGAN Azevedo Original Note: Social Work- SW received acceptance of referral from [facility]. MEGAN Azevedo
[2023-12-31 10:10] VITALS: BP 130/61; PULSE 74; RESP 16; TEMP 36.7; O2SAT 97
--- NOTE | 2023-12-31 10:28 | PN_ITS ---
Subjective Subjective Patient seen and examined. She complained of some back pain which is chronic. She had not yet had her pain meds in the morning. Review of systems otherwise negative. She had EGD yesterday which showed a normal esophagus and no gross lesions in the second portion of the duodenum. Objective Data Objective Data Vital Signs: Vital Signs Temp Pulse Resp BP Pulse Ox O2 Del Method 98.1 F 74 16 130/61 H 97 Room Air 12/31/23 10:10 12/31/23 10:10 12/31/23 10:10 12/31/23 10:10 12/31/23 10:10 12/31/23 10:10 Oxygen Delivery Method Room Air Weight: 263 lb 0.183 oz Body Mass Index (BMI) 43.8 Intake & Output: Intake and Output for Last 24 Hours 12/29/23 12/30/23 12/31/23 23:59 23:59 23:59 Intake Total 1765 / 1765 1086 / 1086 675 / 675 Output Total 750 / 750 Balance 1015 / 1015 1086 / 1086 675 / 675 Lab / Micro Data 12/31/23 06:25 12/31/23 06:25 Labs: Laboratory Results - last 24 hr 12/30/23 11:51: Blood Type O POSITIVE, Antibody Screen NEGATIVE, Crossmatch See Detail 12/30/23 12:46: Vancomycin Trough 25.6 H 12/31/23 01:10: Random Vancomycin 16.7 H 12/31/23 06:25: WBC 13.4 H, RBC 3.59 L, Hgb 9.2 L, Hct 28.4 L, MCV 79.1 L, MCH 25.6 L, MCHC 32.4, RDW Std Deviation 50.6 H, RDW Coeff of Collins 17.9 H, Plt Count 298, MPV 10.3, Immature Gran % (Auto) 1.800 H, Neut % (Auto) 80.5 H, Lymph % (Auto) 11.6 L, [place] % (Auto) 4.6, Eos % (Auto) 1.1, Baso % (Auto) 0.4, Absolute Neuts (auto) 10.8 H, Absolute Lymphs (auto) 1.56, Nucleated RBC % 0, Sodium 133 L, Potassium 3.6, Chloride 100, Carbon Dioxide 27.0, Anion Gap 6, BUN 9, Creatinine 0.69, Estim Creat Clear Calc 76.16, Est GFR (MDRD) Af Amer 107, Est GFR (MDRD) Non-Af 88, BUN/Creatinine Ratio 13.1, Glucose 139 H, Calcium 8.3 L Micro: Microbiology 12/28/23 23:15 Blood Culture (Wb) - Anticubital Left Blood Culture - Final Streptococcus group G 12/29/23 11:15 Wound - Leg, Left Gram Stain - Final 12/29/23 11:15 Wound - Leg, Left Wound Culture - Preliminary Mixed Gram Pos & Gram Neg Org 12/29/23 11:15 Wound - Leg, Left Skin and Soft Tissue MRSA/MSSA (PCR - Final 12/28/23 21:56 Urine Catheter - Catheter Urine Culture - Preliminary Presumptive E. 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 12/29/23 00:40 Stool Stool Occult Blood (MELANIE) - Final 12/28/23 21:56 Mucosa - Nasopharyngeal SARS-CoV-2, Influenza & RSV (PCR) - Final Rhythm Strip Rhythm Strip: Sinus Rhythm Rate: 79 Ectopy: None Physical Exam Const alert, oriented x3, no apparent distress and well nourished Constitutional Narrative: obese General Appearance: cooperative HEENT normocephalic, head/scalp atraumatic, hearing grossly normal bilaterally, moist oral mucous membranes and oropharynx normal Eyes PERRL and EOMs intact bilaterally Neck no lymphadenopathy and supple Lymph Lymphatic: no lymphadenopathy noted and no lymphedema noted Resp normal respiratory effort, normal air movement, no retractions, no use of accessory muscles and clear to auscultation bilaterally Cardio regular rate, regular rhythm, S1 normal heart sound, S2 normal heart sound and no murmurs GI normal to inspection, nondistended, normoactive bowel sounds, soft to palpation, non-tender and non-distended GI Narrative: obese abdomen Extremity Extremity Narrative: RLE wrapped in bandage on lower koroma. General Extremity: no tenderness to palpation of joints or extremities Skin Skin Narrative: as under extremity. Neuro oriented x3, CN's II-XII intact bilaterally, moves all extremities, no focal motor deficits, no sensory deficits noted and deep tendon reflexes 2+ bilaterally Speech: speech normal Motor Exam: strength 5/5 throughout and general weakness Psych thought process normal, cooperative and affect normal Appearance: appropriate Assessment & Plan Assessment/Plan (1) Cellulitis of leg, left: (2) Microcytic anemia: PLAN: Plan #Cellulitis of the LLE * LLE wrapped in bandage. * wound cultures ordered. 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 wound care on board * Blood cultures growing strep group G. Urine cultures growing E. 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 * will get ID consult- Dr Serrano will see on Tuesday * Discussed with Dr Serrano on phone, no need to get a 2D echo. She is allergic to penicillin. Will switch antibiotics to IV ceftriaxone which will help with the cellulitis and also take care of the strep group G. * #Iron deficiency anemia * s/p transfusion of 2 units of PRBCs * Hb is up to 9.2 today. * Iron studies showed iron deficiency anemia * she has never had a colonoscopy. She denies any dark stools or coffee ground emesis. * on IV pantoprazole * She had EGD yesterday which showed normal esophagus and granular mucosa in the antrum which was biopsied * will benefit from colonooscopy. GI on board * #Chronic constipation: on miralax prn. #Elevated blood pressure * BP has now improved. not on any BP meds. * will monitor, and if BP goes up, with start on oral meds * IV hydralazine prn * #Debility and generalised weakness due to mechanical falls * patient says she has been falling at home * PT/OT on board. Fall precautions * #Hyponatremia: sodium is 133 today. Will monitor #Hypothyroidism:on synthroid #AJAY: Patient not on CPAP she has not been evaluated for it. To follow up with pulmonology on outpatient basis for evaluation for CPAP. DVT prophylaxis: SCDs. No antioagulation due to anemia. Charges/Coding Visit Charges Inpatient E&M: 59575 Subs Hosp L2
[2023-12-31] MEDS: Menthol/Lanolin/Calamine/Znox 113 GM Tube 1 APPLIC TOPICAL ×2 (10:39→20:25)
[2023-12-31] MEDS: Ensure Plus High Protein 120 ML LIQUID PO ×4 (10:42→20:27)
[2023-12-31] MEDS: levoFLOXacin IV 750 MG/150 ML BAG 100 MG IV (10:42)
[2023-12-31] MEDS: Ceftriaxone 1 GM/50 ML BAG IV (11:38)
[2023-12-31 13:48] VITALS: BP 143/63; PULSE 75; RESP 16; TEMP 37; O2SAT 94
--- NOTE | 2023-12-31 15:22 | PN.GI_ITS ---
Subjective Subjective Patient underwent endoscopic evaluation yesterday. Not much was seen in upper GI tract to explain patient's acute blood loss anemia. She did have 1 episode of dark stool overnight. Objective Data Objective Data Vital Signs: Vital Signs Temp Pulse Resp BP Pulse Ox O2 Del Method 98.6 F 75 16 143/63 H 94 Room Air 12/31/23 13:48 12/31/23 13:48 12/31/23 13:48 12/31/23 13:48 12/31/23 13:48 12/31/23 13:48 Oxygen Delivery Method Room Air Weight: 263 lb 0.183 oz Body Mass Index (BMI) 43.8 Intake & Output: Intake and Output for Last 24 Hours 12/29/23 12/30/23 12/31/23 23:59 23:59 23:59 Intake Total 1765 / 1765 1086 / 1086 823.33 / 823.33 Output Total 750 / 750 Balance 1015 / 1015 1086 / 1086 823.33 / 823.33 Lab / Micro Data 12/31/23 06:25 12/31/23 06:25 Labs: Laboratory Results - last 24 hr 12/30/23 11:51: Blood Type O POSITIVE, Antibody Screen NEGATIVE, Crossmatch See Detail 12/31/23 01:10: Random Vancomycin 16.7 H 12/31/23 06:25: WBC 13.4 H, RBC 3.59 L, Hgb 9.2 L, Hct 28.4 L, MCV 79.1 L, MCH 25.6 L, MCHC 32.4, RDW Std Deviation 50.6 H, RDW Coeff of Collins 17.9 H, Plt Count 298, MPV 10.3, Immature Gran % (Auto) 1.800 H, Neut % (Auto) 80.5 H, Lymph % (Auto) 11.6 L, [place] % (Auto) 4.6, Eos % (Auto) 1.1, Baso % (Auto) 0.4, Absolute Neuts (auto) 10.8 H, Absolute Lymphs (auto) 1.56, Nucleated RBC % 0, Sodium 133 L, Potassium 3.6, Chloride 100, Carbon Dioxide 27.0, Anion Gap 6, BUN 9, Creatinine 0.69, Estim Creat Clear Calc 76.16, Est GFR (MDRD) Af Amer 107, Est GFR (MDRD) Non-Af 88, BUN/Creatinine Ratio 13.1, Glucose 139 H, Calcium 8.3 L Micro: Microbiology 12/29/23 11:15 Wound - Leg, Left Gram Stain - Final 12/29/23 11:15 Wound - Leg, Left Wound Culture - Preliminary GNR Poss Pseudomonas sp Gram negative constance Gram negative constance#2 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 coli Klebsiella pneumoniae sp pneum 12/28/23 23:15 Blood Culture (Wb) - Anticubital Left Blood Culture - Final Streptococcus group G 12/29/23 00:40 Stool Stool Occult Blood (MELANIE) - Final 12/28/23 21:56 Mucosa - Nasopharyngeal SARS-CoV-2, Influenza & RSV (PCR) - Final Rhythm Strip Rhythm Strip: Sinus Rhythm Rate: 79 Ectopy: None Physical Exam Const alert, oriented x3, no apparent distress and well nourished Constitutional Narrative: obese General Appearance: cooperative HEENT normocephalic, head/scalp atraumatic, hearing grossly normal bilaterally, moist oral mucous membranes and oropharynx normal Eyes PERRL and EOMs intact bilaterally Neck no lymphadenopathy and supple Lymph Lymphatic: no lymphadenopathy noted and no lymphedema noted Resp normal respiratory effort, normal air movement, no retractions, no use of accessory muscles and clear to auscultation bilaterally Cardio regular rate, regular rhythm, S1 normal heart sound, S2 normal heart sound and no murmurs GI normal to inspection, nondistended, normoactive bowel sounds, soft to palpation, non-tender and non-distended GI Narrative: obese abdomen Extremity Extremity Narrative: RLE wrapped in bandage on lower koroma. General Extremity: no tenderness to palpation of joints or extremities Skin Skin Narrative: as under extremity. Neuro oriented x3, CN's II-XII intact bilaterally, moves all extremities, no focal motor deficits, no sensory deficits noted and deep tendon reflexes 2+ bilaterally Speech: speech normal Motor Exam: strength 5/5 throughout and general weakness Psych thought process normal, cooperative and affect normal Appearance: appropriate Assessment & Plan Assessment/Plan (1) Cellulitis of leg, left: (2) Microcytic anemia: PLAN: Plan 78-year-old with multiple comorbidities currently in the hospital at this time for worsening cellulitis of left lower extremity. Patient is currently getting treated for that. She did developed lower GI bleeding. She underwent an upper endoscopy for possible upper GI bleed rapid transit. She has never had a colonoscopy. Differential diagnosis does include angiodysplastic lesion, neoplasia, ischemia. She should have a colonoscopy. Charges/Coding Visit Charges Inpatient E&M: 96192 Subs Hosp L3
[2023-12-31] MEDS: Bisacodyl 5 MG Tablet 20 MG PO (16:16)
[2023-12-31] MEDS: Polyethylene Glycol 3350 BOWEL PREP PO (18:05)
[2023-12-31 20:18] VITALS: BP 159/75; PULSE 82; RESP 18; TEMP 36.9; O2SAT 98
[2024-01-01 03:46] VITALS: BP 139/71; PULSE 75; RESP 18; TEMP 36.7; O2SAT 95
[2024-01-01] MEDS: Nystatin Powder 15gm Bottle 1 APPLIC TOPICAL ×3 (03:49→21:49)
[2024-01-01] MEDS: Acetaminophen 325 MG Tablet 650 MG PO ×2 (04:41→22:06)
[2024-01-01] MEDS: oxyCODONE 5 MG Tablet PO (04:41)
[2024-01-01 05:17] LABS: Absolute Lymphocyte Count 2.03 X10^3/uL (0.83-4.51); Absolute Neutrophil Count 8.8 X10^3/uL (2.0-7.7); Basophil# 0.05 X10^3/uL; Basophil% 0.4 % (0-1); Eosinophil# 0.26 X10^3/uL; Eosinophils% 2.2 % (0-5); Hematocrit 31.6 % (37-47); Hemoglobin 10.1 g/dL (12.0-15.0); Lymphocyte # 2.03 X10^3/ul (0.83-4.51); Lymphocyte % 17.2 % (19-41); Mean Corpuscular Hgb 25.7 pg (27.0-32.0); Mean Corpuscular Volume 80.4 fL (81-99); Monocyte# 0.52 X10^3/uL; Monocyte% 4.4 % (0-10); NRBC Flagged by Analyzer 0 % (0-5); Neutrophil # 8.84 X10^3/uL (2.7-7.7); Neutrophil % 74.7 % (47-70); Platelet Count 349 K/mm3 (150-450); RBC Distribution Width CV 18.9 % (11.6-14.6); RBC Distribution Width SD 54.8 fl (35.1-43.9); Red Blood Count 3.93 M/mm3 (4.2-5.4); White Blood Count 11.8 K/mm3 (4.4-11.0)
[2024-01-01 05:33] LABS: Anion Gap 6 (5-15); BUN 9 mg/dL (7-18); Calcium,Total 8.1 mg/dL (8.5-10.1); Chloride 99 mmol/L (98-107); Creatinine, Serum 0.75 mg/dL (0.55-1.02); EST Glomerular Filtration Rate 79 mL/min (>60); Est Glom Filt Rate - Afr Amer 96 mL/min (>60); Estimated Creatinine Clearance 76.16 ml/min; Glucose 127 mg/dL (74-106); Potassium 3.4 mmol/L (3.5-5.1); Sodium Level 132 mmol/L (136-145)
[2024-01-01 06:00] VITALS: BMI 43.3
[2024-01-01 08:13] VITALS: O2SAT 94
[2024-01-01 09:45] VITALS: BP 142/62; PULSE 76; RESP 16; TEMP 36.9; O2SAT 96
[2024-01-01] MEDS: Ceftriaxone 1 GM/50 ML BAG IV (10:11)
[2024-01-01] MEDS: Potassium Chloride Oral Tablet 20 MEQ 40 MEQ PO (10:11)
[2024-01-01] MEDS: Polyethylene Glycol 3350 17 GM PACKET PO ×2 (10:12→21:48)
[2024-01-01] MEDS: Menthol/Lanolin/Calamine/Znox 113 GM Tube 1 APPLIC TOPICAL ×2 (10:12→21:48)
--- NOTE | 2024-01-01 10:33 | PN_ITS ---
Subjective Subjective Patient seen and examined. She had no complaints. She was lying comfortably in bed. Review of systems otherwise negative. She is having a colonoscopy tomorrow. She has remained hemodynamically stable. Objective Data Objective Data Vital Signs: Vital Signs Temp Pulse Resp BP Pulse Ox O2 Del Method 98.1 F 75 18 139/71 H 94 Room Air 01/01/24 03:46 01/01/24 03:46 01/01/24 03:46 01/01/24 03:46 01/01/24 08:13 01/01/24 08:13 Oxygen Delivery Method Room Air Weight: 260 lb 2.327 oz Body Mass Index (BMI) 43.3 Intake & Output: Intake and Output for Last 24 Hours 12/30/23 12/31/23 01/01/24 23:59 23:59 23:59 Intake Total 1086 / 1086 823.33 / 823.33 Balance 1086 / 1086 823.33 / 823.33 Lab / Micro Data 01/01/24 05:09 01/01/24 05:09 Labs: Laboratory Results - last 24 hr 01/01/24 05:09: WBC 11.8 H, RBC 3.93 L, Hgb 10.1 L, Hct 31.6 L, MCV 80.4 L, MCH 25.7 L, MCHC 32.0, RDW Std Deviation 54.8 H, RDW Coeff of Collins 18.9 H, Plt Count 349, MPV 10.0, Immature Gran % (Auto) 1.100 H, Neut % (Auto) 74.7 H, Lymph % (Auto) 17.2 L, [place] % (Auto) 4.4, Eos % (Auto) 2.2, Baso % (Auto) 0.4, Absolute Neuts (auto) 8.8 H, Absolute Lymphs (auto) 2.03, Nucleated RBC % 0, Sodium 132 L , Potassium 3.4 L, Chloride 99, Carbon Dioxide 27.0, Anion Gap 6, BUN 9, Creatinine 0.75, Estim Creat Clear Calc 76.16, Est GFR (MDRD) Af Amer 96, Est GFR (MDRD) Non-Af 79, BUN/Creatinine Ratio 12.0, Glucose 127 H, Calcium 8.1 L Micro: Microbiology 12/29/23 11:15 Wound - Leg, Left Gram Stain - Final 12/29/23 11:15 Wound - Leg, Left Wound Culture - Final Pseudomonas aeruginosa Morganella morganii sp morgani Providencia stuartii Klebsiella oxytoca Streptococcus sanguinis Coag Negative Staph 12/29/23 11:15 Wound - Leg, Left Skin and Soft Tissue MRSA/MSSA (PCR - Final 12/28/23 21:56 Urine Catheter - Catheter Urine Culture - Final Presumptive E. coli Klebsiella pneumoniae sp pneum 12/28/23 23:15 Blood Culture (Wb) - Anticubital Left Blood Culture - Final Streptococcus group G 12/29/23 00:40 Stool Stool Occult Blood (MELANIE) - Final 12/28/23 21:56 Mucosa - Nasopharyngeal SARS-CoV-2, Influenza & RSV (PCR) - Final Rhythm Strip Rhythm Strip: Sinus Rhythm Rate: 79 Ectopy: None Physical Exam Const alert, oriented x3, no apparent distress and well nourished; Negative for average body habitus or healthy appearing Constitutional Narrative: obese General Appearance: cooperative HEENT normocephalic, head/scalp atraumatic, hearing grossly normal bilaterally, moist oral mucous membranes and oropharynx normal Eyes PERRL and EOMs intact bilaterally; Negative for conjunctivae normal Eyes Narrative: no scleral icterus Neck no lymphadenopathy and supple Lymph Lymphatic: no lymphadenopathy noted and no lymphedema noted Resp normal respiratory effort, normal air movement, no retractions, no use of accessory muscles and clear to auscultation bilaterally Auscultation: Negative for rales, rhonchi or wheezes Cardio regular rate, regular rhythm, S1 normal heart sound, S2 normal heart sound, no murmurs, no rub, no gallops and no clicks GI normal to inspection, nondistended, normoactive bowel sounds, soft to palpation, non-tender and non-distended GI Narrative: obese abdomen Extremity Extremity Narrative: RLE wrapped in bandage on lower koroma. General Extremity: no tenderness to palpation of joints or extremities Skin Skin Narrative: as under extremity. Neuro oriented x3, CN's II-XII intact bilaterally, moves all extremities, no focal motor deficits, no sensory deficits noted and deep tendon reflexes 2+ bilaterally Speech: speech normal Motor Exam: strength 5/5 throughout and general weakness Psych thought process normal, cooperative and affect normal Appearance: appropriate Assessment & Plan Assessment/Plan (1) Cellulitis of leg, left: (2) Microcytic anemia: PLAN: Plan #Cellulitis of the LLE * LLE wrapped in bandage. * wound cultures growing Pseudomonas aeruginosa, Morganella morganii, procidentia, Klebsiella, strep sanguinous and coagulase-negative staph. 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 wound care on board * Blood cultures growing strep group G. Urine cultures growing E. 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 * will get ID consult- Dr Serrano will see on Tuesday * Discussed with Dr Serrano on phone, no need to get a 2D echo. She is allergic to penicillin. Will switch antibiotics to IV ceftriaxone which will help with the cellulitis and also take care of the strep group G. Add on ciprofloxacin based on wound cultures. * #Iron deficiency anemia * s/p transfusion of 2 units of PRBCs * Hb is up to 10.1 * Iron studies showed iron deficiency anemia * she has never had a colonoscopy. She denies any dark stools or coffee ground emesis. * on IV pantoprazole * She had EGD which showed normal esophagus and granular mucosa in the antrum which was biopsied * will benefit from colonooscopy. GI on board * #Chronic constipation: on miralax prn. #Elevated blood pressure * BP has now improved. * will monitor, and if BP goes up, with start on oral meds * IV hydralazine prn * #Debility and generalised weakness due to mechanical falls * patient says she has been falling at home * PT/OT on board. Fall precautions * #Hyponatremia: sodium is 133 today. Will monitor #Hypothyroidism:on synthroid #AJAY: Patient not on CPAP she has not been evaluated for it. To follow up with pulmonology on outpatient basis for evaluation for CPAP. DVT prophylaxis: SCDs. No antioagulation due to anemia. Charges/Coding Visit Charges Inpatient E&M: 41958 Subs Hosp L2
[2024-01-01 15:45] VITALS: BP 132/68; PULSE 73; RESP 16; TEMP 36.7; O2SAT 96
[2024-01-01 21:42] VITALS: BP 133/35; PULSE 75; RESP 18; TEMP 37.2; O2SAT 95
[2024-01-01] MEDS: Ciprofloxacin 500 MG Tablet PO (21:48)
[2024-01-01] MEDS: Polyethylene Glycol 3350 BOWEL PREP 1 BOTTLE PO (21:49)
[2024-01-01 22:00] VITALS: BP 154/72; PULSE 50; RESP 18; TEMP 36.3; O2SAT 95
[2024-01-02] VITALS (12 sets, daily range): BP systolic 135–169; BP diastolic 45–84; PULSE 60–83; RESP 16–18; TEMP 36.7–37.2; O2SAT 91–96; BMI 42.5
[2024-01-02] MEDS: Nystatin Powder 15gm Bottle 1 APPLIC TOPICAL ×2 (06:57→22:44)
[2024-01-02 07:36] LABS: Absolute Lymphocyte Count 2.21 X10^3/uL (0.83-4.51); Basophil# 0.03 X10^3/uL; Basophil% 0.3 % (0-1); Eosinophil# 0.19 X10^3/uL; Eosinophils% 1.9 % (0-5); Hematocrit 28.7 % (37-47); Hemoglobin 9.1 g/dL (12.0-15.0); Lymphocyte # 2.21 X10^3/ul (0.83-4.51); Lymphocyte % 22.2 % (19-41); Mean Corp Hgb Conc 31.7 g/dL (32-36); Mean Corpuscular Hgb 25.9 pg (27.0-32.0); Mean Corpuscular Volume 81.5 fL (81-99); Mean Platelet Vol. 9.5 fl (6.2-12.0); Monocyte# 0.42 X10^3/uL; Monocyte% 4.2 % (0-10); NRBC Flagged by Analyzer 0 % (0-5); Neutrophil # 7.02 X10^3/uL (2.7-7.7); Neutrophil % 70.7 % (47-70); POSITIVE MORPHOLOGY YES; Platelet Count 288 K/mm3 (150-450); RBC Distribution Width CV 19.7 % (11.6-14.6); RBC Distribution Width SD 56.6 fl (35.1-43.9); Red Blood Count 3.52 M/mm3 (4.2-5.4); White Blood Count 9.9 K/mm3 (4.4-11.0)
--- NOTE | 2024-01-02 07:37 | WOUNDNOTE ---
wound photo: left lower leg
--- NOTE | 2024-01-02 07:38 | WOUNDNOTE ---
wound photo: left lower leg
[2024-01-02 07:48] LABS: Differential Indicated SCAN CRITERIA MET
[2024-01-02 08:26] LABS: Anion Gap 7 (5-15); BUN 7 mg/dL (7-18); BUN/Creat Ratio 10.1 RATIO (10-20); Calcium,Total 7.9 mg/dL (8.5-10.1); Chloride 103 mmol/L (98-107); Creatinine, Serum 0.69 mg/dL (0.55-1.02); EST Glomerular Filtration Rate 87 mL/min (>60); Est Glom Filt Rate - Afr Amer 106 mL/min (>60); Estimated Creatinine Clearance 74.86 ml/min; Glucose 113 mg/dL (74-106); Potassium 3.5 mmol/L (3.5-5.1); Sodium Level 137 mmol/L (136-145)
[2024-01-02] MEDS: Menthol/Lanolin/Calamine/Znox 113 GM Tube 1 APPLIC TOPICAL ×2 (08:32→22:43)
[2024-01-02] MEDS: Ceftriaxone 1 GM/50 ML BAG IV (08:32)
[2024-01-02 09:26] LABS: Atypical Lymphocyte 1+ %
--- NOTE | 2024-01-02 09:53 | CASEMGMT ---
Social Work- SW spoke with pt in regards to PT refusals. Pt stated that she did not feel good at that moment and was willing to do therapy at a later time. Pt reports that she will participate in PT anytime she is able. SW discussed need for participation to get approval for therapy. Pt reports that going to [facility] is no longer an option, as she has 3 kids and her father in the home and the home isn't that much better [than [facility]] either. SW discussed option for intermediate care at SNF if not approved for TCU. Pt agreeable. MEGAN Azevedo
--- NOTE | 2024-01-02 11:09 | CASEMGMT ---
Discharge Planning Referral for [facility] cancelled. Federica Brown DC Planning Asst.
--- NOTE | 2024-01-02 11:21 | CASEMGMT ---
Addendum entered by Federica Brown 01/02/24 12:42: [facility] declined d/t being out of network. Federica Brown DC Planning Asst. Addendum entered by Federica Brown 01/02/24 12:08: [facility] declined d/t no bed availability. Federica Brown DC Planning Asst. Original Note: Discharge Planning Referral sent via [facility] to [facility] and [facility]. Federica Brown DC Planning Asst.
[2024-01-02] MEDS: Lactated Ringers 1,000 ML 15 ML IV (12:18)
--- NOTE | 2024-01-02 12:55 | PRE.ANES_ITS ---
ASA Classification* ASA Classification ASA Classification: 4 Assessment & Plan Anesthesia* Anesthesia Assessment Anesthesia Assessment: Discussed sedation and/or anesthesia options, risks, benefits, and alternatives with patient/parents/legal guardian/POA. Questions invited. The patient/parents/legal guardian/POA seems to understand and agrees to proceed with anesthesia plan. Reviewed the physical assessment, medical history, allergy history and patient home medications list prior to surgery/procedure/anesthetic and documented any changes. Performed airway and anesthesia risk assessments. Anesthesia Type Anesthesia Type: MAC History Source History Obtained from:: Patient and Chart Anesthesia Focused Assessment* Temperature: 98.3 F Pulse Rate: 83 Blood Pressure: 142/84 Respiratory Rate: 18 Pulse Ox: 96 Oxygen Delivery Method: Room Air Airway Assessment Mouth opens: 2 cm Mallampati Score: IV Teeth Condition: Chipped/Broken (Poor dentition throughout.) Neck Range of motion (ROM): Limited ROM Focused Labs Anesthesia Preop lab: CBC WBC 9.9 K/mm3 (4.4-11.0) 01/02/24 07:17 RBC 3.52 M/mm3 (4.2-5.4) L 01/02/24 07:17 Hgb 9.1 g/dL (12.0-15.0) L 01/02/24 07:17 Hct 28.7 % (37-47) L 01/02/24 07:17 Plt Count 288 K/mm3 (150-450) 01/02/24 07:17 CHEMISTRY Potassium 3.5 mmol/L (3.5-5.1) 01/02/24 07:17 Sodium 137 mmol/L (136-145) 01/02/24 07:17 Magnesium 1.9 mg/dL (1.6-2.6) 12/29/23 06:48 Phosphorus 2.8 mg/dL (2.5-4.9) 12/29/23 06:48 BUN 7 mg/dL (7-18) 01/02/24 07:17 Creatinine 0.69 mg/dL (0.55-1.02) 01/02/24 07:17 Glucose 113 mg/dL (74-106) H 01/02/24 07:17 TSH 4.590 uIU/mL (0.358-3.740) H 12/28/23 21:08 COAG Pre-Assessment Diagnosis/Proposed Procedure Planned Operative Procedure(s): Colonoscopy Anesthesia History 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 When Was Last Pacemaker Check QUESTION #4 FULL TEXT: You/Your Family Experience fever (hyperthermia) with Anesthesia Last Oral Intake Last Oral intake: Last Oral Intake NPO since 13:00 12/30/23 15:14 Meds taken in AM with sips of No 12/30/23 15:14 water? Meds patient instructed to take am of surgery Any additional information?: Yes NPO since: 00:00 (Patient finished her prep before midnight.) PONV PONV - plant facilities technician: PONV - plant facilities technician Female HX of Motion Sickness HX of N/V After Surgery Non-Smoker Duration of Surgery greater than 60 minutes Number of Risk Factors PONV Score Height & Weight Height & Weight: Anesthesia: Height & Weight Height 5 ft 5 in 12/30/23 15:14 Weight: 115.8 kg 01/02/24 04:21 Body Mass Index (BMI) 42.5 01/02/24 04:21 Respiratory Assessment Respiratory Assessment - plant facilities technician: Respiratory Tract Infection Hx - plant facilities technician Hx Respiratory Tract Infection Yes: Patient is currently 12/30/23 18:55 congested. Any additional information?: Yes Hx Respiratory Tract Infection: Yes (Patient has chronic intermittent cough.) STOP Sleep Apnea STOP Sleep Apnea - plant facilities technician: STOP Sleep Apnea - plant facilities technician Hx Hypertension No 12/29/23 11:16 Hx Sleep Apnea No 12/29/23 01:06 CPAP BIPAP Do you snore loudly (louder No 12/29/23 01:06 than talking or can be heard Do you often feel tired/ Yes 12/29/23 01:06 fatigued/ sleepy during daytime? Has anyone observed you stop No 12/29/23 01:06 breathing during sleep? STOP Results Negative 12/29/23 01:06 QUESTION #5 FULL TEXT : Do you snore loudly (louder than talking or can be heard through closed doors)? 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 Specify any problems Hx of Preganancy in last 3 No 12/29/23 01:06 Months Nurse Filling Out Transfusion EVIZZO 12/29/23 01:06 & Questions: Date: 12/29/23 12/29/23 01:06 Time: 01:39 12/29/23 01:06 Patient unable to answer at this time (ie. confused, unrespo /Reproduction History /Reproductive History - plant facilities technician: /Reproductive Hx- plant facilities technician Hx Now No 12/30/23 15:16 Gestational Age (in weeks): EDC: Hx Hx Para Hx Section SAB No 12/30/23 15:16 Active Medications Active Medications: Current Medications Generic Name Dose Route Start Last Admin Trade Name Freq PRN Reason Stop Dose Admin Acetaminophen 650 mg 12/29/23 01:05 01/01/24 22:06 Acetaminophen 325 Mg Tablet PO 650 mg Q6H PRN PRN Administration Pain 1-10 Or Fever>100.7 Albuterol Sulfate 2.5 mg 12/29/23 01:05 Albuterol 2.5 Mg/3 Ml Vial.Neb. INHALATION Q2H PRN PRN SOB &/OR WHEEZING Calamine/Phenol 1 applic 12/30/23 10:00 01/02/24 08:32 Menthol/Lanolin/Calamine/Znox 113 Gm Tube TOPICAL 1 applic BID LUIZ Administration Protocol Ciprofloxacin HCl 500 mg 01/01/24 22:00 01/02/24 07:34 Ciprofloxacin 500 Mg Tablet PO 01/08/24 22:01 Not Given BID LUIZ Hydralazine HCl 10 mg 12/29/23 01:05 12/30/23 20:08 Hydralazine 20 Mg/Ml Vial IV 10 mg Q6H PRN PRN Administration SBP>160 Protocol Sodium Chloride 1,000 mls @ 15 mls/hr 12/30/23 18:05 01/01/24 17:13 IV Not Given .Q48H LUIZ Ceftriaxone Sodium 1 gm in 50 mls @ 100 mls/hr 12/31/23 10:55 01/02/24 09:02 Rocephin IV Infused Q24 [facility] Infusion Lactated Ringer's 1,000 mls @ 15 mls/hr 01/02/24 12:30 01/02/24 12:18 IV 15 mls/hr .Q48H LUIZ Administration Levothyroxine Sodium 25 mcg 12/29/23 06:00 01/02/24 05:24 Levothyroxine 25 Mcg Tablet PO Not Given DAILY@0600 LUIZ Melatonin 3 mg 12/29/23 01:05 Melatonin 3 Mg Tablet PO QHS PRN PRN INSOMNIA Nutritional Formula (Lactose Free) 120 ml 12/29/23 10:00 01/02/24 07:34 Ensure Plus High Protein 120 Ml Liquid PO Not Given 4X/DAY LUIZ Nystatin 1 applic 12/29/23 06:00 01/02/24 06:57 Nystatin Powder 15gm Bottle TOPICAL 1 applic TID [facility] Administration Protocol Ondansetron HCl 4 mg 12/29/23 01:05 Ondansetron 4 Mg/2 Ml Vial IV Q8H PRN PRN NAUSEA/VOMITING Oxycodone HCl 5 mg 12/29/23 01:05 01/01/24 04:41 Oxycodone 5 Mg Tablet PO 5 mg Q6H PRN PRN Administration Pain Score 4-10 or Pre PT/OT Polyethylene Glycol 17 gm 12/29/23 10:00 01/02/24 07:34 Polyethylene Glycol 3350 17 Gm Packet PO Not Given BID LUIZ Senna/Docusate Sodium 2 tablet 12/29/23 01:05 Senna/Docusate Sodium 1 Tablet PO BID PRN PRN Constipation Sodium Chloride 10 - 40 ml 12/29/23 01:06 12/30/23 21:45 0.9% Saline Lock 10 Ml Syringe IV 10 ml UD PRN Administration SALINE FLUSH [facility] Medical History (Updated 12/30/23 @ 18:[address] Jaime Benson MD) AJAY (obstructive sleep apnea) Morbid obesity Chronic edema Hypothyroidism Congenital skull deformity Open leg wound Home Medications ?Medication ?Instructions ?Recorded ?Last Taken ?Type furosemide 20 mg tablet 20 mg PO DAILY PRN swelling 12/28/23 12/28/23 History levothyroxine 75 mcg tablet 25 mcg PO DAILY Hypothyroid 12/28/23 12/30/23 History silver sulfadiazine 1 % topical 1 applic topical BID 12/28/23 12/28/23 History cream Allergy/AdvReac Type Severity Reaction Status Date / Time Penicillins Allergy Intermediate Rash Verified 12/28/23 20:30 Family History Other Heart disease Hypertension Thyroid disorder Surgical History (Updated 12/30/23 @ 18:[address] Jaime Benson MD) S/P appendectomy History of 2 sections History of tonsillectomy Surgical History unable to obtain Social History household members: children housing: other details: Trailer Smoking Status: Former smoker alcohol intake: current alcohol intake frequency: holidays/special occasions only substance use type: does not use additional social history: Ambulates at baseline with a walker Review of Systems (Anesthesia) ROS Narrative System reviewed and no additional complaints, except as documented.
--- NOTE | 2024-01-02 13:21 | PN_ITS ---
Subjective Subjective Patient seen and examined. He is. She had an uneventful night and review of symptoms otherwise negative. She has remained hemodynamically stable. She is for colonoscopy later today. Objective Data Objective Data Vital Signs: Vital Signs Temp Pulse Resp BP Pulse Ox O2 Del Method O2 Flow Rate 98.3 F 83 18 142/84 H 96 Room Air 2 01/02/24 13:01 01/02/24 13:01 01/02/24 13:01 01/02/24 13:01 01/02/24 13:01 01/02/24 13:01 01/02/24 13:01 Oxygen Flow Rate (L/min) 2 Oxygen Delivery Method Room Air Weight: 255 lb 4.725 oz Body Mass Index (BMI) 42.5 Intake & Output: Intake and Output for Last 24 Hours 12/31/23 01/01/24 01/02/24 23:59 23:59 23:59 Intake Total 823.33 / 823.33 350 / 1950 1969 Balance 823.33 / 823.33 350 / 1949 Lab / Micro Data 01/02/24 07:17 01/02/24 07:17 Labs: Laboratory Results - last 24 hr 12/30/23 11:51: Crossmatch See Detail 01/02/24 07:17: WBC 9.9, RBC 3.52 L, Hgb 9.1 L, Hct 28.7 L, MCV 81.5, MCH 25.9 L , MCHC 31.7 L, RDW Std Deviation 56.6 H, RDW Coeff of Collins 19.7 H, Plt Count 288, MPV 9.5, Immature Gran % (Auto) 0.700, Neut % (Auto) 70.7 H, Lymph % (Auto) 22.2, [place] % (Auto) 4.2, Eos % (Auto) 1.9, Baso % (Auto) 0.3, Absolute Neuts (auto) 7.0, Absolute Lymphs (auto) 2.21, Nucleated RBC % 0, Atypical Lymphocytes 1+, Sodium 137, Potassium 3.5, Chloride 103, Carbon Dioxide 27.0, Anion Gap 7, BUN 7, Creatinine 0.69, Estim Creat Clear Calc 74.86, Est GFR (MDRD) Af Amer 106, Est GFR (MDRD) Non-Af 87, BUN/Creatinine Ratio 10.1, Glucose 113 H, Calcium 7.9 L Micro: Microbiology 12/29/23 11:15 Wound - Leg, Left Gram Stain - Final 12/29/23 11:15 Wound - Leg, Left Wound Culture - Final Pseudomonas aeruginosa Morganella morganii sp morgani Providencia stuartii Klebsiella oxytoca Streptococcus sanguinis Coag Negative Staph 12/29/23 11:15 Wound - Leg, Left Skin and Soft Tissue MRSA/MSSA (PCR - Final 12/28/23 21:56 Urine Catheter - Catheter Urine Culture - Final Presumptive E. coli Klebsiella pneumoniae sp pneum 12/28/23 23:15 Blood Culture (Wb) - Anticubital Left Blood Culture - Final Streptococcus group G 12/29/23 00:40 Stool Stool Occult Blood (MELANIE) - Final 12/28/23 21:56 Mucosa - Nasopharyngeal SARS-CoV-2, Influenza & RSV (PCR) - Final Rhythm Strip Rhythm Strip: Sinus Rhythm Rate: 79 Ectopy: None Physical Exam Const alert, oriented x3 and no apparent distress Constitutional Narrative: obese General Appearance: cooperative HEENT normocephalic, head/scalp atraumatic, hearing grossly normal bilaterally, moist oral mucous membranes and oropharynx normal Eyes PERRL and EOMs intact bilaterally; Negative for conjunctivae normal Eyes Narrative: no scleral icterus Neck no lymphadenopathy and supple Neck Narrative: Neck is short and thick, trachea is midline, no thyroid enlargement Lymph Lymphatic: no lymphadenopathy noted and no lymphedema noted Resp normal respiratory effort, normal air movement, no retractions, no use of accessory muscles and clear to auscultation bilaterally Cardio regular rate, regular rhythm, S1 normal heart sound, S2 normal heart sound, no murmurs, no rub, no gallops and no clicks GI normal to inspection, nondistended, normoactive bowel sounds, soft to palpation, non-tender and non-distended GI Narrative: obese abdomen Extremity Extremity Narrative: RLE wrapped in bandage on lower koroma. General Extremity: no tenderness to palpation of joints or extremities Skin Skin Narrative: as under extremity. Neuro oriented x3, CN's II-XII intact bilaterally, moves all extremities, no focal motor deficits, no sensory deficits noted and deep tendon reflexes 2+ bilaterally Speech: speech normal Motor Exam: strength 5/5 throughout and general weakness Psych thought process normal, cooperative and affect normal Psych Narrative: Pleasant, interacts appropriately Appearance: appropriate Assessment & Plan Assessment/Plan (1) Cellulitis of leg, left: (2) Microcytic anemia: PLAN: Plan #Cellulitis of the LLE * LLE wrapped in bandage. * wound cultures growing Pseudomonas aeruginosa, Morganella morganii, procidentia, Klebsiella, strep sanguinous and coagulase-negative staph. 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 wound care on board * Blood cultures growing strep group G. Urine cultures growing E. 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 * will get ID consult- Dr Serrano will see on Tuesday * Discussed with Dr Serrano on phone, no need to get a 2D echo. She is allergic to penicillin. Will switch antibiotics to IV ceftriaxone which will help with the cellulitis and also take care of the strep group G. Add on ciprofloxacin based on wound cultures. * #Iron deficiency anemia * s/p transfusion of 2 units of PRBCs * Hb today is 9.1 * Iron studies showed iron deficiency anemia * she has never had a colonoscopy. She denies any dark stools or coffee ground emesis. * on IV pantoprazole * She had EGD which showed normal esophagus and granular mucosa in the antrum which was biopsied * will benefit from colonooscopy. GI on board * For colonoscopy today * #Chronic constipation: on miralax prn. #Elevated blood pressure * BP has now improved. * will monitor, and if BP goes up, with start on oral meds * IV hydralazine prn * #Debility and generalised weakness due to mechanical falls * patient says she has been falling at home * PT/OT on board. Fall precautions * #Hyponatremia: sodium is 133 today. Will monitor #Hypothyroidism:on synthroid #AJAY: Patient not on CPAP she has not been evaluated for it. To follow up with pulmonology on outpatient basis for evaluation for CPAP. DVT prophylaxis: SCDs. No antioagulation due to anemia. Disposition: Will benefit from placement. Case management on board. Charges/Coding Visit Charges Inpatient E&M: 92502 Subs Hosp L2
--- NOTE | 2024-01-02 13:54 | ECHOCS_ITS ---
Reason For Study: MURUR Procedure This was a 2D Doppler, Color Flow transthoracic echocardiogram. The study was technically difficult. Contrast injection was performed. Exam performed portable in patient room. Left Ventricle Normal size and thickness. The left ventricular ejection fraction is 65 %. Diastolic function is indeterminate. Right Ventricle Normal right ventricle. Atria The left and right atria are normal. Mitral Valve Trivial mitral valve insufficiency. Tricuspid Valve Mild tricuspid valve insufficiency. Right ventricular systolic pressure estimated to be 42 mmHg. Aortic Valve Aortic sclerosis, no stenosis. Pulmonic Valve The pulmonic valve is not well visualized. Mild (1+) pulmonic valve insufficiency. Great Vessels Normal sized aortic root. Pericardium/Pleural No pericardial effusion. MMode/2D Measurements & Calculations RVDd: 2.9 cm Ao root diam: 3.0 cm LAV(MOD-sp4): 68.3 ml LVAd ap4: 35.3 cm2 SV(MOD-sp4): 92.0 ml SV(sp4-el): 98.2 ml LVLd ap4: 8.2 cm EDV(MOD-sp4): 123.1 ml EDV(sp4-el): 129.1 ml LVAs ap4: 15.2 cm2 LVLs ap4: 6.4 cm ESV(MOD-sp4): 31.0 ml ESV(sp4-el): 30.9 ml EF(MOD-sp4): 74.8 % EF(sp4-el): 76.1 % LA A4 area: 22.6 cm2 LA dimension(2D): 3.6 cm RA A4 area: 13.4 cm2 TAPSE: 1.7 cm Time Measurements MV dec time: 0.19 sec Doppler Measurements & Calculations MV E max eitan: 78.7 cm/sec Lat Peak E' Eitan: 8.7 cm/sec Med Peak E' Eitan: 7.3 cm/sec MV A max eitan: 71.4 cm/sec E/E' lat: 9.0 E/E' med: 10.7 MV E/A: 1.1 MV V2 max: 97.5 cm/sec MV dec slope: 409.5 cm/sec2 Ao V2 max: 159.3 cm/sec MV max P.8 mmHg Ao max P.2 mmHg MV V2 mean: 63.1 cm/sec Ao V2 mean: 111.2 cm/sec MV mean P.8 mmHg Ao mean P.6 mmHg MV V2 VTI: 29.3 cm Ao V2 VTI: 31.3 cm AV (velocity ratio): 0.97 LV V1 max: 132.5 cm/sec PA V2 max: 98.8 cm/sec PI end-d eitan: 148.9 cm/sec LV V1 max P.0 mmHg PA V2 mean: 71.6 cm/sec LV V1 mean P.2 mmHg LV V1 mean: 96.7 cm/sec LV V1 VTI: 30.4 cm TR max eitan: 304.3 cm/sec TR max P.0 mmHg ECHO/Echo Complete W/ Contrast Interpretation Summary The study was technically difficult. The left ventricular ejection fraction is 65 %. Diastolic function is indeterminate. Mild tricuspid valve insufficiency. Right ventricular systolic pressure estimated to be 42 mmHg. Aortic sclerosis, no stenosis. Mild (1+) pulmonic valve insufficiency. Ordering Physician: Gage Serrano Referring Physician: Hailey Serna M.D. Performed By: Brittney King RCS
--- NOTE | 2024-01-02 14:11 | PCM.POST.ANE ---
Anesthesia: Postop Eval I Current Vital Signs Temperature: 98.1 F Pulse Rate: 78 Blood Pressure: 135/61 Respiratory Rate: 18 Pulse Ox: 93 Assessment Airway patent: Yes Spontaneous unlabored respirations: Yes nausea: No Vomiting: No Anesthesia Complication: No Fluid Hydration Crystalloid volume administer (ml): 200 Total IV fluid infused: 200 Progress Note Anesthesia document: Postop Eval 1 completed: Yes
--- NOTE | 2024-01-02 15:06 | CASEMGMT ---
Discharge Planning A list of?SNF providers including quality and resource use data and consistent with the patient's preferred geographic region, medical needs, and insurance network were provided via email to pt's daughter ([email or web address]) from the [employer] Guide link. Federica Brown, Discharge Planning Asst.
--- NOTE | 2024-01-02 15:22 | CON.PCM.ID_ITS ---
Assessment & Plan Assessment/Plan (1) Streptococcal bacteremia: PLAN: Suspected source LLE wound. Wound cx with PsA, mornganella, providencia, klebs, strep, CoNS. Ucx with ecoli and klebs. On ceftriaxone/cipro, will continue. With group G strep, will check TTE. If no veg, plan on po abx at discharge. Will follow, thank you (2) Cellulitis of leg, left: HPI Consult Data Date of Consult: 01/02/24 HPI Narrative Reason for Consultation: bacteremia HPI Narrative: DEON JIMENEZ, is a 78 F who presented 12/27 with several days increased weakness with falls and back pain at home. No fever, some chills. C/o worsening LLE wound with redness, drainage, ulceration. Admitted here, now on ceftriaxone and cipro. Feeling better. Had colonoscopy this AM, so some upset stomach and sore throat. Full ROS performed and neg except as noted above. [facility] Medical History AJAY (obstructive sleep apnea) Morbid obesity Chronic edema Hypothyroidism Congenital skull deformity Open leg wound Home Medications ?Medication ?Instructions ?Recorded ?Last Taken ?Type furosemide 20 mg tablet 20 mg PO DAILY PRN swelling 12/28/23 12/28/23 History levothyroxine 75 mcg tablet 25 mcg PO DAILY Hypothyroid 12/28/23 12/30/23 History silver sulfadiazine 1 % topical 1 applic topical BID 12/28/23 12/28/23 History cream Allergy/AdvReac Type Severity Reaction Status Date / Time Penicillins Allergy Intermediate Rash Verified 12/28/23 20:30 Family History Other Heart disease Hypertension Thyroid disorder Surgical History (Updated 12/30/23 @ 18:[address] Jaime Benson MD) S/P appendectomy History of 2 sections History of tonsillectomy Surgical History unable to obtain Social History household members: children housing: other details: Trailer Smoking Status: Former smoker alcohol intake: current alcohol intake frequency: holidays/special occasions only substance use type: does not use additional social history: Ambulates at baseline with a walker Physical Exam Const alert, oriented x3 and no apparent distress General Appearance: cooperative HEENT normocephalic and head/scalp atraumatic Eyes PERRL and EOMs intact bilaterally Neck supple and No nodes Resp normal air movement and clear to auscultation bilaterally Cardio regular rate and regular rhythm GI soft to palpation, non-tender and non-distended Extremity General Extremity: edema Skin Skin Narrative: reviewed photos Neuro CN's II-XII intact bilaterally Lab / Micro Data Attestation: I reviewed the patient's lab results. 01/02/24 07:17 01/02/24 07:17 Labs: Laboratory Results - last 24 hr 12/30/23 11:51: Crossmatch See Detail 01/02/24 07:17: WBC 9.9, RBC 3.52 L, Hgb 9.1 L, Hct 28.7 L, MCV 81.5, MCH 25.9 L , MCHC 31.7 L, RDW Std Deviation 56.6 H, RDW Coeff of Collins 19.7 H, Plt Count 288, MPV 9.5, Immature Gran % (Auto) 0.700, Neut % (Auto) 70.7 H, Lymph % (Auto) 22.2, [place] % (Auto) 4.2, Eos % (Auto) 1.9, Baso % (Auto) 0.3, Absolute Neuts (auto) 7.0, Absolute Lymphs (auto) 2.21, Nucleated RBC % 0, Atypical Lymphocytes 1+, Sodium 137, Potassium 3.5, Chloride 103, Carbon Dioxide 27.0, Anion Gap 7, BUN 7, Creatinine 0.69, Estim Creat Clear Calc 74.86, Est GFR (MDRD) Af Amer 106, Est GFR (MDRD) Non-Af 87, BUN/Creatinine Ratio 10.1, Glucose 113 H, Calcium 7.9 L Rhythm Strip Rhythm Strip: Sinus Rhythm Rate: 79 Ectopy: None
[2024-01-02] MEDS: oxyCODONE 5 MG Tablet PO (15:43)
[2024-01-02] MEDS: Acetaminophen 325 MG Tablet 650 MG PO (15:43)
--- NOTE | 2024-01-02 15:54 | CASEMGMT ---
Social Work- SW talked with Susannah who selected [facility]. Neither facility was able to accept. SW called Susannah to notify. Susannah was willing to have list emailed to her for additional selections. DCA advised. Pt advised to look at list as well. SW to remain available to follow. MEGAN Azevedo
--- NOTE | 2024-01-02 18:18 | OP.COLON_ITS ---
Patient Name: Tiffany Ko Procedure Date: 01/02/2024 1:36 PM Date of : 1945 Age: 78 Procedure: Colonoscopy Indications: Hematochezia, Iron deficiency anemia Providers: Alex Reaves DO Medicines: Monitored Anesthesia Care Patient Profile: This is a 78 year old female. Refer to note in patient chart for documentation of history and physical. Last Colonoscopy: none. The patient's first colonoscopy is today. Complications: No immediate complications. Procedure: Pre-Anesthesia Assessment: - Prior to the procedure, a History and Physical was performed, and patient medications and allergies were reviewed. The patient is competent. The risks and benefits of the procedure and the sedation options and risks were discussed with the patient. All questions were answered and informed consent was obtained. Patient identification and proposed procedure were verified by the physician. Mental Status Examination: alert and oriented. Airway Examination: normal oropharyngeal airway and neck mobility. Respiratory Examination: clear to auscultation. CV Examination: normal. Prophylactic Antibiotics: The patient does not require prophylactic antibiotics. Prior Anticoagulants: The patient has taken no anticoagulant or antiplatelet agents. ASA Grade Assessment: II - A patient with mild systemic disease. After reviewing the risks and benefits, the patient was deemed in satisfactory condition to undergo the procedure. The anesthesia plan was to use monitored anesthesia care (MAC). Immediately prior to administration of medications, the patient was re-assessed for adequacy to receive sedatives. The heart rate, respiratory rate, oxygen saturations, blood pressure, adequacy of pulmonary ventilation, and response to care were monitored throughout the procedure. The physical status of the patient was re-assessed after the procedure. After I obtained informed consent, the scope was passed under direct vision. Throughout the procedure, the patient's blood pressure, pulse, and oxygen saturations were monitored continuously. The pediatric colonoscope was introduced through the anus and advanced to the cecum, identified by appendiceal orifice and ileocecal valve. The colonoscopy was performed without difficulty. The patient tolerated the procedure well. The quality of the bowel preparation was fair. The ileocecal valve was photographed. Scope In: 1:46:23 PM Scope Withdrawal Time 0 hours 6 minutes 50 seconds Scope Out: 2:02:07 PM Total Procedure Duration Time 0 hours 15 minutes 44 seconds Findings: Hemorrhoids were found on perianal exam. Non-bleeding internal hemorrhoids were found during digital exam. The hemorrhoids were Grade II (internal hemorrhoids that prolapse but reduce spontaneously). Multiple small and large-mouthed diverticula were found in the recto-sigmoid colon, sigmoid colon, descending colon, splenic flexure and transverse colon. A moderate amount of stool was found in the ascending colon and in the cecum, interfering with visualization. The exam was otherwise without abnormality. Impression: - Preparation of the colon was fair. - Hemorrhoids found on perianal exam. - Non-bleeding internal hemorrhoids. - Diverticulosis in the recto-sigmoid colon, in the sigmoid colon, in the descending colon, at the splenic flexure and in the transverse colon. - Stool in the ascending colon and in the cecum. - The examination was otherwise normal. - No specimens collected. Recommendation: - Return patient to [facility] care. - Resume regular diet. - Continue present medications. - Repeat colonoscopy in 6 months because the bowel preparation was suboptimal. Procedure Code(s): --- Professional --- 16036, Colonoscopy, flexible; diagnostic, including collection of specimen(s) by brushing or washing, when performed (separate procedure) CPT copyright 2021 [employer]. All rights reserved. The codes documented in this report are preliminary and upon office clerk review may be revised to meet current compliance requirements. Alex Reaves DO 01/02/2024 6:17:48 PM This report has been signed electronically. Number of Addenda: 0 Note Initiated On: 01/02/2024 1:36 PM
--- NOTE | 2024-01-02 18:18 | OP.CCLET_ITS ---
01/02/2024 Hailey Serna [address] [place] [address] Re : Colonoscopy procedure for Tiffany Ko Dear Dr. Serna This procedure was performed on Tuesday, January 02, 2024. My impressions and recommendations are as follows: Impressions : - Preparation of the colon was fair. - Hemorrhoids found on perianal exam. - Non-bleeding internal hemorrhoids. - Diverticulosis in the recto-sigmoid colon, in the sigmoid colon, in the descending colon, at the splenic flexure and in the transverse colon. - Stool in the ascending colon and in the cecum. - The examination was otherwise normal. - No specimens collected. Recommendations : - Return patient to [facility] care. - Resume regular diet. - Continue present medications. - Repeat colonoscopy in 6 months because the bowel preparation was suboptimal. My findings are described in the full procedure note, which is enclosed. If I can be of further assistance, please feel free to contact me at . Sincerely, Alex Reaves, 01/02/2024 6:17:48 PM This report has been signed electronically.
[2024-01-02] MEDS: Ciprofloxacin 500 MG Tablet PO (22:44)
[2024-01-03 05:00] VITALS: BP 139/81; PULSE 66; PULSE 80; RESP 18; TEMP 36.7; O2SAT 94
[2024-01-03] MEDS: Levothyroxine 25 MCG TABLET PO (05:24)
[2024-01-03] MEDS: Nystatin Powder 15gm Bottle 1 APPLIC TOPICAL ×2 (05:24→21:14)
[2024-01-03 06:00] VITALS: BMI 42.8
[2024-01-03 08:04] LABS: Absolute Lymphocyte Count 2.03 X10^3/uL (0.83-4.51); Basophil# 0.04 X10^3/uL; Basophil% 0.4 % (0-1); Eosinophil# 0.31 X10^3/uL; Eosinophils% 2.8 % (0-5); Hematocrit 28.8 % (37-47); Hemoglobin 8.8 g/dL (12.0-15.0); Lymphocyte # 2.03 X10^3/ul (0.83-4.51); Lymphocyte % 18.7 % (19-41); Mean Corp Hgb Conc 30.6 g/dL (32-36); Mean Corpuscular Hgb 25.5 pg (27.0-32.0); Mean Corpuscular Volume 83.5 fL (81-99); Mean Platelet Vol. 10.3 fl (6.2-12.0); Monocyte# 0.45 X10^3/uL; Monocyte% 4.1 % (0-10); NRBC Flagged by Analyzer 0 % (0-5); Neutrophil # 7.97 X10^3/uL (2.7-7.7); Neutrophil % 73.3 % (47-70); POSITIVE MORPHOLOGY YES; Platelet Count 303 K/mm3 (150-450); RBC Distribution Width CV 20.1 % (11.6-14.6); RBC Distribution Width SD 59.9 fl (35.1-43.9); Red Blood Count 3.45 M/mm3 (4.2-5.4); White Blood Count 10.9 K/mm3 (4.4-11.0)
[2024-01-03 08:07] LABS: Differential Indicated SCAN CRITERIA MET
[2024-01-03] MEDS: oxyCODONE 5 MG Tablet PO (09:04)
[2024-01-03] MEDS: Ceftriaxone 1 GM/50 ML BAG IV (09:04)
[2024-01-03] MEDS: Ciprofloxacin 500 MG Tablet PO ×2 (09:04→21:18)
[2024-01-03 09:05] LABS: Anisocytosis 1+; Hypochromasia 1+
[2024-01-03] MEDS: Menthol/Lanolin/Calamine/Znox 113 GM Tube 1 APPLIC TOPICAL ×2 (09:05→21:15)
--- NOTE | 2024-01-03 09:06 | CASEMGMT ---
Addendum entered by Federica Brown 01/03/24 11:19: [facility] to start precert. Federica Brown DC Planning Asst. Addendum entered by Federica Brown 01/03/24 11:15: [facility] also accepted. Patients foc is [facility]. All facilities updated. Per [facility], pts merlin last month and she currently has QMB which does not cover room and board. SW updated. Federica Brown DC Planning Asst. Original Note: Discharge Planning Referrals sent to [facility], [facility], [facility], [facility], and [facility]. [facility] accepted[facility] accept if pt would be willing to go to [facility] until a bed opens. [facility] declined. Federica Brown DC Planning Asst.
--- NOTE | 2024-01-03 10:06 | PCM.PN.ID ---
Physical Exam Narrative Feeling better, leg less sore, no fever Const alert and no apparent distress General Appearance: cooperative Resp normal air movement and clear to auscultation bilaterally Cardio regular rate and regular rhythm GI soft to palpation, non-tender and non-distended Extremity General Extremity: edema Skin Skin Narrative: leg wrapped ID ID: Route of nutrition/ use of supplements: [] Nutritional Intake: [] IV Site: [] Hung Catheter: [] Assessment & Plan Assessment/Plan (1) Streptococcal bacteremia: PLAN: Suspected source LLE wound. Wound cx with PsA, mornganella, providencia, klebs, strep, CoNS. Ucx with ecoli and klebs. On ceftriaxone/cipro, will continue. With group G strep, pending TTE. If no veg, plan on 3 more days po cipro 500mg bid and cefdinir 300mg bid. Will follow (2) Cellulitis of leg, left:
--- NOTE | 2024-01-03 11:11 | PN_ITS ---
Subjective Subjective Patient seen and examined. She was sleeping comfortably and had no complaints. She had an uneventful night. Review of symptoms otherwise negative. She has remained hemodynamically stable. Objective Data Objective Data Vital Signs: Vital Signs Temp Pulse Resp BP Pulse Ox O2 Del Method O2 Flow Rate 98.0 F 80 18 139/81 H 94 Room Air 2 01/03/24 05:00 01/03/24 05:00 01/03/24 05:00 01/03/24 05:00 01/03/24 05:00 01/03/24 05:00 01/02/24 13:01 Oxygen Flow Rate (L/min) 2 Oxygen Delivery Method Room Air Weight: 257 lb 4.471 oz Body Mass Index (BMI) 42.8 Intake & Output: Intake and Output for Last 24 Hours 01/01/24 01/02/24 01/03/24 23:59 23:59 23:59 Intake Total 350 / 1950 2270 / 2390 594.75 / 594.75 Balance 350 / 1950 2270 / 2390 594.75 / 594.75 Lab / Micro Data 01/03/24 07:26 01/02/24 07:17 Labs: Laboratory Results - last 24 hr 01/03/24 07:26: WBC 10.9, RBC 3.45 L, Hgb 8.8 L, Hct 28.8 L, MCV 83.5, MCH 25.5 L, MCHC 30.6 L, RDW Std Deviation 59.9 H, RDW Coeff of Collins 20.1 H, Plt Count 303, MPV 10.3, Immature Gran % (Auto) 0.700, Neut % (Auto) 73.3 H, Lymph % (Auto) 18.7 L, Platte % (Auto) 4.1, Eos % (Auto) 2.8, Baso % (Auto) 0.4, Absolute Neuts (auto) 8.0 H, Absolute Lymphs (auto) 2.03, Nucleated RBC % 0, Hypochromasia 1+, Anisocytosis 1+ Micro: Microbiology 12/31/23 11:30 Blood Culture (Wb) - Anticubital Left Blood Culture - Preliminary No growth in 48 hours. 12/29/23 11:15 Wound - Leg, Left Gram Stain - Final 12/29/23 11:15 Wound - Leg, Left Wound Culture - Final Pseudomonas aeruginosa Morganella morganii sp morgani Providencia stuartii Klebsiella oxytoca Streptococcus sanguinis Coag Negative Staph 12/29/23 11:15 Wound - Leg, Left Skin and Soft Tissue MRSA/MSSA (PCR - Final 12/28/23 21:56 Urine Catheter - Catheter Urine Culture - Final Presumptive E. coli Klebsiella pneumoniae sp pneum 12/28/23 23:15 Blood Culture (Wb) - Anticubital Left Blood Culture - Final Streptococcus group G 12/29/23 00:40 Stool Stool Occult Blood (MELANIE) - Final 12/28/23 21:56 Mucosa - Nasopharyngeal SARS-CoV-2, Influenza & RSV (PCR) - Final Radiography Diagnostic Testing: Radiology Impression Echocardiogram 01/02/24 13:54 Interpretation Summary The study was technically difficult. The left ventricular ejection fraction is 65 %. Diastolic function is indeterminate. Mild tricuspid valve insufficiency. Right ventricular systolic pressure estimated to be 42 mmHg. Aortic sclerosis, no stenosis. Mild (1+) pulmonic valve insufficiency. Ordering Physician: Gage Serrano Referring Physician: Hailey Serna M.D. Performed By: Brittney King RCS Rhythm Strip Rhythm Strip: Sinus Rhythm Rate: 79 Ectopy: None Physical Exam Const alert, oriented x3, no apparent distress and well nourished; Negative for average body habitus or healthy appearing Constitutional Narrative: obese General Appearance: cooperative HEENT normocephalic, head/scalp atraumatic, hearing grossly normal bilaterally, moist oral mucous membranes and oropharynx normal Eyes PERRL, EOMs intact bilaterally and conjunctivae normal Eyes Narrative: no scleral icterus Neck no lymphadenopathy and supple Lymph Lymphatic: no lymphadenopathy noted and no lymphedema noted Resp normal respiratory effort, normal air movement, no retractions, no use of accessory muscles and clear to auscultation bilaterally Cardio regular rate, regular rhythm, S1 normal heart sound, S2 normal heart sound, no murmurs, no rub, no gallops and no clicks GI normal to inspection, nondistended, normoactive bowel sounds, soft to palpation, non-tender and non-distended GI Narrative: obese abdomen Extremity Extremity Narrative: RLE wrapped in bandage on lower koroma. General Extremity: no tenderness to palpation of joints or extremities Skin Skin Narrative: as under extremity. Neuro oriented x3, CN's II-XII intact bilaterally, moves all extremities, no focal motor deficits, no sensory deficits noted and deep tendon reflexes 2+ bilaterally Speech: speech normal Motor Exam: strength 5/5 throughout and general weakness Psych thought process normal, cooperative and affect normal Appearance: appropriate Assessment & Plan Assessment/Plan (1) Cellulitis of leg, left: (2) Microcytic anemia: PLAN: Plan #Cellulitis of the LLE * LLE wrapped in bandage. * wound cultures growing Pseudomonas aeruginosa, Morganella morganii, procidentia, Klebsiella, strep sanguinous and coagulase-negative staph. 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 wound care on board * Blood cultures growing strep group G. Urine cultures growing E. coli and gram-negative rods lactose fruit peeler. * will get ID consult- Dr Serrano will see on Tuesday * Discussed with Dr Serrano on phone, no need to get a 2D echo. She is allergic to penicillin. * Currently on IV ceftriaxone and ciprofloxacin. * ID subsequently ordered echo. 2D echo showed EF of 65% with indeterminate diastolic function and RVSP of 42 mmHg. No evidence of vegetation. * #Iron deficiency anemia * s/p transfusion of 2 units of PRBCs * Hb today is 9.1 * Iron studies showed iron deficiency anemia * she has never had a colonoscopy. She denies any dark stools or coffee ground emesis. * on IV pantoprazole * She had EGD which showed normal esophagus and granular mucosa in the antrum which was biopsied * will benefit from colonooscopy. GI on board * Colonoscopy showed evidence of extensive diverticulosis. * #Chronic constipation: on miralax prn. #Elevated blood pressure * BP has now improved. * will monitor, and if BP goes up, with start on oral meds * IV hydralazine prn * #Debility and generalised weakness due to mechanical falls * patient says she has been falling at home * PT/OT on board. Fall precautions * #Hyponatremia: Stable. Will monitor. #Hypothyroidism:on synthroid #AJAY: Patient not on CPAP she has not been evaluated for it. To follow up with pulmonology on outpatient basis for evaluation for CPAP. DVT prophylaxis: SCDs. No antioagulation due to anemia. Disposition: Will benefit from placement. Case management on board. Currently awaiting placement. Charges/Coding Visit Charges Inpatient E&M: 82325 Subs Hosp L2
--- NOTE | 2024-01-03 11:19 | CASEMGMT ---
Addendum entered by Altagracia Montes 01/03/24 11:22: CARITO spoke with Susannah to advise of accepting facilities. Susannah chose [facility]. NIC advised. MEGAN Azevedo D Original Note: Social Work- CARITO spoke with Susannah, who selected 4 new facilities. [facility], [facility], [facility], and [place]. NIC advised. CARITO remains available to follow MEGAN Azevedo
--- NOTE | 2024-01-03 11:22 | CASEMGMT ---
Social Work- SW was advised that pt medicaid last month. Referral made to [facility], [employer]. CARITO collaborated with [facility] to complete application. Dtr in law Susannah advised. MEGAN Azevedo
[2024-01-03 11:46] LABS: Anion Gap 6 (5-15); BUN 8 mg/dL (7-18); BUN/Creat Ratio 11.6 RATIO (10-20); Calcium,Total 8.3 mg/dL (8.5-10.1); Chloride 100 mmol/L (98-107); Creatinine, Serum 0.69 mg/dL (0.55-1.02); EST Glomerular Filtration Rate 88 mL/min (>60); Est Glom Filt Rate - Afr Amer 106 mL/min (>60); Estimated Creatinine Clearance 75.19 ml/min; Glucose 109 mg/dL (74-106); Potassium 3.7 mmol/L (3.5-5.1); Sodium Level 135 mmol/L (136-145)
[2024-01-03] MEDS: Ensure Plus High Protein 120 ML LIQUID PO ×2 (13:11→16:36)
[2024-01-03 14:01] VITALS: BP 136/62; PULSE 80; RESP 18; TEMP 36.7; O2SAT 96
[2024-01-03 14:04] VITALS: PULSE 90
--- NOTE | 2024-01-03 15:21 | CASEMGMT ---
Social Work- Pending medicaid #: [id number] [facility] reports that only 2 documents are needed to finalize; she has reached out to bin Davalos, for those documents. MEGAN Azevedo
[2024-01-03 20:57] VITALS: BP 140/55; PULSE 80; RESP 18; TEMP 37.2; O2SAT 95
[2024-01-03 21:01] VITALS: PULSE 100
[2024-01-03] MEDS: Acetaminophen 325 MG Tablet 650 MG PO (21:17)
[2024-01-03 23:35] VITALS: BP 140/70; PULSE 81; RESP 18; TEMP 36.7; O2SAT 93
[2024-01-03] MEDS: 0.9% Saline Lock 10 ML Syringe IV (23:37)
[2024-01-03] MEDS: MELATONIN 3 MG TABLET PO (23:43)
[2024-01-04 06:41] VITALS: BP 158/65; PULSE 69; RESP 16; TEMP 36.6; O2SAT 96
[2024-01-04] MEDS: Levothyroxine 25 MCG TABLET PO (06:46)
[2024-01-04] MEDS: Nystatin Powder 15gm Bottle 1 APPLIC TOPICAL ×2 (06:47→21:53)
[2024-01-04 07:01] LABS: Absolute Lymphocyte Count 2.08 X10^3/uL (0.83-4.51); Absolute Neutrophil Count 5.3 X10^3/uL (2.0-7.7); Basophil# 0.05 X10^3/uL; Basophil% 0.6 % (0-1); Eosinophil# 0.22 X10^3/uL; Eosinophils% 2.7 % (0-5); Hematocrit 29.1 % (37-47); Lymphocyte # 2.08 X10^3/ul (0.83-4.51); Lymphocyte % 25.4 % (19-41); Mean Corp Hgb Conc 30.9 g/dL (32-36); Mean Corpuscular Hgb 26.1 pg (27.0-32.0); Mean Corpuscular Volume 84.3 fL (81-99); Mean Platelet Vol. 9.7 fl (6.2-12.0); Monocyte# 0.52 X10^3/uL; Monocyte% 6.3 % (0-10); NRBC Flagged by Analyzer 0 % (0-5); Neutrophil # 5.27 X10^3/uL (2.7-7.7); Neutrophil % 64.3 % (47-70); POSITIVE MORPHOLOGY YES; Platelet Count 284 K/mm3 (150-450); RBC Distribution Width CV 20.4 % (11.6-14.6); RBC Distribution Width SD 62.1 fl (35.1-43.9); Red Blood Count 3.45 M/mm3 (4.2-5.4); White Blood Count 8.2 K/mm3 (4.4-11.0)
[2024-01-04 07:12] LABS: Differential Indicated SCAN CRITERIA MET
[2024-01-04 07:28] LABS: Anion Gap 2 (5-15); BUN 12 mg/dL (7-18); BUN/Creat Ratio 16.7 RATIO (10-20); Calcium,Total 8.7 mg/dL (8.5-10.1); Chloride 102 mmol/L (98-107); Creatinine, Serum 0.72 mg/dL (0.55-1.02); EST Glomerular Filtration Rate 83 mL/min (>60); Est Glom Filt Rate - Afr Amer 101 mL/min (>60); Estimated Creatinine Clearance 75.19 ml/min; Glucose 123 mg/dL (74-106); Potassium 4.1 mmol/L (3.5-5.1); Sodium Level 134 mmol/L (136-145)
[2024-01-04 07:51] VITALS: BMI 42.5
[2024-01-04 07:52] LABS: Differential Comment SCANNED
[2024-01-04] MEDS: Ciprofloxacin 500 MG Tablet PO ×2 (09:32→21:53)
[2024-01-04] MEDS: Ceftriaxone 1 GM/50 ML BAG IV (09:32)
[2024-01-04 09:35] VITALS: BP 136/55; PULSE 73; RESP 18; TEMP 36.3; O2SAT 95
[2024-01-04] MEDS: Ensure Plus High Protein 120 ML LIQUID PO ×3 (09:36→17:16)
--- NOTE | 2024-01-04 10:06 | PN.HOSP_ITS ---
Reason for Visit Reason for Visit: Diagnoses Candidiasis of skin and nail (12/28/23) Unspecified streptococcus as the cause of diseases classified elsewhere (12/28/23) Iron deficiency anemia, unspecified (12/28/23) Elevated white blood cell count, unspecified (12/28/23) Hypo-osmolality and hyponatremia (12/28/23) Constipation, unspecified (12/28/23) Cellulitis of left lower limb (12/28/23) Elevated blood-pressure reading, without diagnosis of hypertension (12/28/23) Weakness (12/28/23) Other malaise (12/28/23) Bacteremia (12/28/23) Unspecified abnormal findings in urine (12/28/23) Objective Data Objective Data Vital Signs: Vital Signs Temp Pulse Resp BP Pulse Ox O2 Del Method O2 Flow Rate 36.3 C L 73 18 136/55 H 95 Room Air 2 01/04/24 09:35 01/04/24 09:35 01/04/24 09:35 01/04/24 09:35 01/04/24 09:35 01/04/24 09:35 01/02/24 13:01 Oxygen Flow Rate (L/min) 2 Oxygen Delivery Method Room Air Weight: 115.8 kg Body Mass Index (BMI) 42.5 Intake & Output: Intake and Output for Last 24 Hours 01/02/24 01/03/24 01/04/24 23:59 23:59 23:59 Intake Total 2270 / 2390 834.75 / 1034.75 200 / 200 Balance 2270 / 2390 834.75 / 1034.75 200 / 200 Lab / Micro Data 01/04/24 06:50 01/04/24 06:50 Labs: Laboratory Results - last 24 hr 01/03/24 07:26: Sodium 135 L, Potassium 3.7, Chloride 100, Carbon Dioxide 29.0, Anion Gap 6, BUN 8, Creatinine 0.69, Estim Creat Clear Calc 75.19, Est GFR (MDRD) Af Amer 106, Est GFR (MDRD) Non-Af 88, BUN/Creatinine Ratio 11.6, Glucose 109 H, Calcium 8.3 L 01/04/24 06:50: WBC 8.2, RBC 3.45 L, Hgb 9.0 L, Hct 29.1 L, MCV 84.3, MCH 26.1 L , MCHC 30.9 L, RDW Std Deviation 62.1 H, RDW Coeff of Collins 20.4 H, Plt Count 284, MPV 9.7, Immature Gran % (Auto) 0.700, Neut % (Auto) 64.3, Lymph % (Auto) 25.4, Parker % (Auto) 6.3, Eos % (Auto) 2.7, Baso % (Auto) 0.6, Absolute Neuts (auto) 5.3, Absolute Lymphs (auto) 2.08, Nucleated RBC % 0, Differential Comment SCANNED, Sodium 134 L, Potassium 4.1, Chloride 102, Carbon Dioxide 30.0, Anion Gap 2 L, BUN 12, Creatinine 0.72, Estim Creat Clear Calc 75.19, Est GFR (MDRD) Af Amer 101, Est GFR (MDRD) Non-Af 83, BUN/Creatinine Ratio 16.7, Glucose 123 H, Calcium 8.7 Micro: Microbiology 12/31/23 11:30 Blood Culture (Wb) - Anticubital Left Blood Culture - Preliminary No growth in 48 hours. 12/29/23 11:15 Wound - Leg, Left Gram Stain - Final 12/29/23 11:15 Wound - Leg, Left Wound Culture - Final Pseudomonas aeruginosa Morganella morganii sp morgani Providencia stuartii Klebsiella oxytoca Streptococcus sanguinis Coag Negative Staph 12/29/23 11:15 Wound - Leg, Left Skin and Soft Tissue MRSA/MSSA (PCR - Final 12/28/23 21:56 Urine Catheter - Catheter Urine Culture - Final Presumptive E. coli Klebsiella pneumoniae sp pneum 12/28/23 23:15 Blood Culture (Wb) - Anticubital Left Blood Culture - Final Streptococcus group G 12/29/23 00:40 Stool Stool Occult Blood (MELANIE) - Final 12/28/23 21:56 Mucosa - Nasopharyngeal SARS-CoV-2, Influenza & RSV (PCR) - Final Radiography Diagnostic Testing: Radiology Impression Echocardiogram 01/02/24 13:54 Interpretation Summary The study was technically difficult. The left ventricular ejection fraction is 65 %. Diastolic function is indeterminate. Mild tricuspid valve insufficiency. Right ventricular systolic pressure estimated to be 42 mmHg. Aortic sclerosis, no stenosis. Mild (1+) pulmonic valve insufficiency. Ordering Physician: Gage Serrano Referring Physician: Hailey Serna M.D. Performed By: Brittney King RCS Rhythm Strip Rhythm Strip: Sinus Rhythm Rate: 79 Ectopy: None Assessment & Plan Assessment/Plan (1) Cellulitis of leg, left: (2) Microcytic anemia: PLAN: Plan Cellulitis of the LLE * Polymicrobial: Pseudomonas, Morganella, PreviDent Savi, Klebsiella, Streptococcus and coag negative staph. * ID on consult * Antibiotics with ceftriaxone and ciprofloxacin. Bacteremia * Group C Streptococcus. * Antibiotics as above. Repeat blood cultures thus far negative. * No vegetation on echocardiogram. Iron deficiency anemia * Hemoglobin dropped down to 6.7. * Status post 2 units of packed red blood cells. * Iron replacement * Patient had a colonoscopy that showed hemorrhoids that were nonbleeding as well as diverticulosis. Likely both of those were 1 of those could be the source of her chronic anemia. Debility * PT/OT * Case management to assist on disposition DVT prophylaxis: SCDs.
[2024-01-04] MEDS: Acetaminophen 325 MG Tablet 650 MG PO ×2 (10:19→21:58)
[2024-01-04] MEDS: Ferrous Sulfate 325 MG Tablet PO (12:08)
--- NOTE | 2024-01-04 13:05 | PN.HOSP_ITS ---
Reason for Visit Reason for Visit: Diagnoses Candidiasis of skin and nail (12/28/23) Unspecified streptococcus as the cause of diseases classified elsewhere (12/28/23) Iron deficiency anemia, unspecified (12/28/23) Elevated white blood cell count, unspecified (12/28/23) Hypo-osmolality and hyponatremia (12/28/23) Constipation, unspecified (12/28/23) Cellulitis of left lower limb (12/28/23) Elevated blood-pressure reading, without diagnosis of hypertension (12/28/23) Weakness (12/28/23) Other malaise (12/28/23) Bacteremia (12/28/23) Unspecified abnormal findings in urine (12/28/23) Subjective Subjective States that her left leg is still painful but not as severe as it was. States that the the wraps that they have on her legs a little tightness but otherwise tolerable. Objective Data Objective Data Vital Signs: Vital Signs Temp Pulse Resp BP Pulse Ox O2 Del Method O2 Flow Rate 36.3 C L 73 18 136/55 H 95 Room Air 2 01/04/24 09:35 01/04/24 09:35 01/04/24 09:35 01/04/24 09:35 01/04/24 09:35 01/04/24 09:35 01/02/24 13:01 Oxygen Flow Rate (L/min) 2 Oxygen Delivery Method Room Air Weight: 115.8 kg Body Mass Index (BMI) 42.5 Intake & Output: Intake and Output for Last 24 Hours 01/02/24 01/03/24 01/04/24 23:59 23:59 23:59 Intake Total 2270 / 2390 834.75 / 1034.75 250 / 250 Balance 2270 / 2390 834.75 / 1034.75 250 / 250 Lab / Micro Data 01/04/24 06:50 01/04/24 06:50 Labs: Laboratory Results - last 24 hr 01/04/24 06:50: WBC 8.2, RBC 3.45 L, Hgb 9.0 L, Hct 29.1 L, MCV 84.3, MCH 26.1 L , MCHC 30.9 L, RDW Std Deviation 62.1 H, RDW Coeff of Collins 20.4 H, Plt Count 284, MPV 9.7, Immature Gran % (Auto) 0.700, Neut % (Auto) 64.3, Lymph % (Auto) 25.4, [place]dwell % (Auto) 6.3, Eos % (Auto) 2.7, Baso % (Auto) 0.6, Absolute Neuts (auto) 5.3, Absolute Lymphs (auto) 2.08, Nucleated RBC % 0, Differential Comment SCANNED, Sodium 134 L, Potassium 4.1, Chloride 102, Carbon Dioxide 30.0, Anion Gap 2 L, BUN 12, Creatinine 0.72, Estim Creat Clear Calc 75.19, Est GFR (MDRD) Af Amer 101, Est GFR (MDRD) Non-Af 83, BUN/Creatinine Ratio 16.7, Glucose 123 H, Calcium 8.7 Micro: Microbiology 12/31/23 11:30 Blood Culture (Wb) - Anticubital Left Blood Culture - Preliminary No growth in 48 hours. 12/29/23 11:15 Wound - Leg, Left Gram Stain - Final 12/29/23 11:15 Wound - Leg, Left Wound Culture - Final Pseudomonas aeruginosa Morganella morganii sp morgani Providencia stuartii Klebsiella oxytoca Streptococcus sanguinis Coag Negative Staph 12/29/23 11:15 Wound - Leg, Left Skin and Soft Tissue MRSA/MSSA (PCR - Final 12/28/23 21:56 Urine Catheter - Catheter Urine Culture - Final Presumptive E. coli Klebsiella pneumoniae sp pneum 12/28/23 23:15 Blood Culture (Wb) - Anticubital Left Blood Culture - Final Streptococcus group G 12/29/23 00:40 Stool Stool Occult Blood (MELANIE) - Final 12/28/23 21:56 Mucosa - Nasopharyngeal SARS-CoV-2, Influenza & RSV (PCR) - Final Rhythm Strip Rhythm Strip: Sinus Rhythm Rate: 79 Ectopy: None Physical Exam Const alert and no apparent distress HEENT head/scalp atraumatic and moist oral mucous membranes Resp normal respiratory effort and no retractions Extremity Extremity Narrative: Legs wrapped, did not remove. Neuro Sensorium / Orientation: awake and alert Assessment & Plan Assessment/Plan (1) Cellulitis of leg, left: (2) Microcytic anemia: PLAN: Plan Cellulitis of the LLE * Polymicrobial: Pseudomonas, Morganella, PreviDent Savi, Klebsiella, Streptococcus and coag negative staph. * ID on consult * Antibiotics with ceftriaxone and ciprofloxacin. * Echocardiogram is negative. Per ID recommendations, plan for 3 more days of oral Cipro and cefdinir at 500 twice daily 300 twice daily, respectively. Bacteremia * Group C Streptococcus. * Antibiotics as above. Repeat blood cultures thus far negative. * No vegetation on echocardiogram. Iron deficiency anemia * Hemoglobin dropped down to 6.7. * Status post 2 units of packed red blood cells. * Iron replacement * Patient had a colonoscopy that showed hemorrhoids that were nonbleeding as well as diverticulosis. Likely both of those were 1 of those could be the source of her chronic anemia. Debility * PT/OT * Case management to assist on disposition DVT prophylaxis: SCDs. Discharge to detention facility pending insurance authorization. Charges/Coding Visit Charges Inpatient E&M: 57377 Subs Hosp L2
--- NOTE | 2024-01-04 13:07 | TREXTCAR_ITS ---
Diet Diet Order/Speech Therapy: 01/02/24 15:03 Diet: Regular - General Dietary Modifications:: Cardiac / Heart Healthy Type of Dietary Supplement:: Williams Wound(s) LLE: Wound Type: Stasis Ulcer Dressing Change: Adaptic Problem/Diagnosis (1) Cellulitis of leg, left: Status: Acute Code(s): L03.116 - Cellulitis of left lower limb (2) Microcytic anemia: Status: Acute Code(s): D50.9 - Iron deficiency anemia, unspecified Plan Cellulitis of the LLE * Polymicrobial: Pseudomonas, Morganella, PreviDent Savi, Klebsiella, Streptococcus and coag negative staph. * ID on consult * Antibiotics with ceftriaxone and ciprofloxacin. * Echocardiogram is negative. Per ID recommendations, plan for 3 more days of oral Cipro and cefdinir at 500 twice daily 300 twice daily, respectively. Bacteremia * Group C Streptococcus. * Antibiotics as above. Repeat blood cultures thus far negative. * No vegetation on echocardiogram. Iron deficiency anemia * Hemoglobin dropped down to 6.7. * Status post 2 units of packed red blood cells. * Iron replacement * Patient had a colonoscopy that showed hemorrhoids that were nonbleeding as well as diverticulosis. Likely both of those were 1 of those could be the source of her chronic anemia. Debility * PT/OT * Case management to assist on disposition DVT prophylaxis: SCDs. Discharge to custodial facility pending insurance authorization. Allergies/Procedures Done in Hospital Allergies Penicillins Allergy (Intermediate, Verified 12/28/23 20:30) Rash Procedures: None Type of Care/Length of Stay Estimated LOS: Convalescent Care Less Than 30 days Type of Care Needed: Skilled Rehab Potential: Fair Prognosis: Good Additional Orders/Day of Discharge Day of Discharge: 01/04/24 Dietary and Speech Recommendations Dietitian Recommendations/Changes: Continue Cardiac diet to manage medical conditions. Continue 120mL Ensure Plus High Protein strawberry 4x with medpass to provide supplemental energy. Continue Williams mixed williamson BID with meals to promote wound healing. Discharge Plan Admission Admit Date/Time: 12/28/23 23:45 Primary Reason for Your Visit: Leg wounds and bacteremia. Attending Provider: Levy Christianson Primary Care Provider: Hailey Serna Consulting Providers: Graciela Cartagena; Gage Serrano; Sejal Marin Discharge Orders/Prescriptions Prescriptions: New acetaminophen 325 mg Tablet 650 mg PO Q6H PRN PRN (Reason: Pain 1-10 Or Fever>100.7) Qty: 0 0RF albuterol sulfate 2.5 mg /3 mL (0.083 %) Solution For Nebulization 2.5 mg inhalation Q2H PRN PRN (Reason: SOB &/OR WHEEZING) Qty: 0 0RF ciprofloxacin HCl 500 mg Tablet 500 mg PO BID Qty: 6 0RF ferrous sulfate [FeroSul] 325 mg (65 mg iron) Tablet 325 mg PO DAILY@1200 Qty: 0 0RF Ensure Plus High Protein 0.08 gram-1.5 kcal/mL Liquid 120 ml PO 4X/DAY Qty: 0 0RF ibuprofen 200 mg capsule 400 mg PO Q6H PRN (Reason: fever or pain) Qty: 20 0RF Continued levothyroxine 75 mcg tablet 25 mcg PO DAILY furosemide 20 mg tablet 20 mg PO DAILY PRN (Reason: swelling) Discontinued silver sulfadiazine 1 % cream 1 applic topical BID Referrals / Follow Up: Hailey Serna MD [Primary Care Provider] - Within 2 Weeks Disposition Disposition (needs filled in before D/C Order can be placed): Senior Care Facility
[2024-01-04 14:32] VITALS: BP 135/54; PULSE 77; RESP 18; TEMP 36.6; O2SAT 96
--- NOTE | 2024-01-04 18:17 | PN.GI_ITS ---
Subjective Subjective Patient underwent colonoscopy. She has not seen any signs of GI bleeding. Objective Data Objective Data Vital Signs: Vital Signs Temp Pulse Resp BP Pulse Ox O2 Del Method O2 Flow Rate 98 F 77 18 135/54 H 96 Room Air 2 01/04/24 14:32 01/04/24 14:32 01/04/24 14:32 01/04/24 14:32 01/04/24 14:32 01/04/24 14:32 01/02/24 13:01 Oxygen Flow Rate (L/min) 2 Oxygen Delivery Method Room Air Weight: 255 lb 4.725 oz Body Mass Index (BMI) 42.5 Intake & Output: Intake and Output for Last 24 Hours 01/02/24 01/03/24 01/04/24 23:59 23:59 23:59 Intake Total 2270 / 2390 834.75 / 1034.75 250 / 250 Balance 2270 / 2390 834.75 / 1034.75 250 / 250 Lab / Micro Data 01/04/24 06:50 01/04/24 06:50 Labs: Laboratory Results - last 24 hr 01/04/24 06:50: WBC 8.2, RBC 3.45 L, Hgb 9.0 L, Hct 29.1 L, MCV 84.3, MCH 26.1 L , MCHC 30.9 L, RDW Std Deviation 62.1 H, RDW Coeff of Collins 20.4 H, Plt Count 284, MPV 9.7, Immature Gran % (Auto) 0.700, Neut % (Auto) 64.3, Lymph % (Auto) 25.4, [place] % (Auto) 6.3, Eos % (Auto) 2.7, Baso % (Auto) 0.6, Absolute Neuts (auto) 5.3, Absolute Lymphs (auto) 2.08, Nucleated RBC % 0, Differential Comment SCANNED, Sodium 134 L, Potassium 4.1, Chloride 102, Carbon Dioxide 30.0, Anion Gap 2 L, BUN 12, Creatinine 0.72, Estim Creat Clear Calc 75.19, Est GFR (MDRD) Af Amer 101, Est GFR (MDRD) Non-Af 83, BUN/Creatinine Ratio 16.7, Glucose 123 H, Calcium 8.7 Micro: Microbiology 12/31/23 11:30 Blood Culture (Wb) - Anticubital Left Blood Culture - Preliminary No growth in 48 hours. 12/29/23 11:15 Wound - Leg, Left Gram Stain - Final 12/29/23 11:15 Wound - Leg, Left Wound Culture - Final Pseudomonas aeruginosa Morganella morganii sp morgani Providencia stuartii Klebsiella oxytoca Streptococcus sanguinis Coag Negative Staph 12/29/23 11:15 Wound - Leg, Left Skin and Soft Tissue MRSA/MSSA (PCR - Final 12/28/23 21:56 Urine Catheter - Catheter Urine Culture - Final Presumptive E. coli Klebsiella pneumoniae sp pneum 12/28/23 23:15 Blood Culture (Wb) - Anticubital Left Blood Culture - Final Streptococcus group G 12/29/23 00:40 Stool Stool Occult Blood (MELANIE) - Final 12/28/23 21:56 Mucosa - Nasopharyngeal SARS-CoV-2, Influenza & RSV (PCR) - Final Rhythm Strip Rhythm Strip: Sinus Rhythm Rate: 79 Ectopy: None Physical Exam Const alert and no apparent distress HEENT head/scalp atraumatic and moist oral mucous membranes Resp normal respiratory effort and no retractions Extremity Extremity Narrative: Legs wrapped, did not remove. Neuro Sensorium / Orientation: awake and alert Assessment & Plan Assessment/Plan (1) Cellulitis of leg, left: (2) Microcytic anemia: PLAN: Plan * #Iron deficiency anemia * s/p transfusion of 2 units of PRBCs * Hb today is 9.1 * Iron studies showed iron deficiency anemia * she has never had a colonoscopy. She denies any dark stools or coffee ground emesis. * on IV pantoprazole * She had EGD which showed normal esophagus and granular mucosa in the antrum which was biopsied * will benefit from colonooscopy. GI on board * Colonoscopy * Findings: Hemorrhoids were found on perianal exam. Non-bleeding internal hemorrhoids were found during digital exam. The hemorrhoids were Grade II (internal hemorrhoids that prolapse but reduce spontaneously). Multiple small and large-mouthed diverticula were found in the recto-sigmoid colon, sigmoid colon, descending colon, splenic flexure and transverse colon. A moderate amount of stool was found in the ascending colon and in the cecum, interfering with visualization. The exam was otherwise without abnormality. Impression: - Preparation of the colon was fair. - Hemorrhoids found on perianal exam. - Non-bleeding internal hemorrhoids. - Diverticulosis in the recto-sigmoid colon, in the sigmoid colon, in the descending colon, at the splenic flexure and in the transverse colon. - Stool in the ascending colon and in the cecum. - The examination was otherwise normal. - No specimens collected. Recommendation: - Return patient to [facility] for [facility] care. - Resume regular diet. - Continue present medications. - Repeat colonoscopy in 6 months because the bowel preparation was suboptimal. * Charges/Coding Visit Charges Inpatient E&M: 60136 Subs Hosp L3
[2024-01-04 20:30] VITALS: BP 156/74; PULSE 87; RESP 16; TEMP 37.1; O2SAT 82
[2024-01-04] MEDS: Menthol/Lanolin/Calamine/Znox 113 GM Tube 1 APPLIC TOPICAL (21:52)
[2024-01-05] VITALS: RESP 16; O2SAT 97
[2024-01-05 02:30] VITALS: BP 149/72; PULSE 80; RESP 16; TEMP 36.9; O2SAT 96
[2024-01-05] MEDS: Acetaminophen 325 MG Tablet 650 MG PO ×2 (05:48→17:00)
[2024-01-05] MEDS: Levothyroxine 25 MCG TABLET PO (05:48)
[2024-01-05] MEDS: Nystatin Powder 15gm Bottle 1 APPLIC TOPICAL ×2 (05:51→14:30)
[2024-01-05 06:52] LABS: Absolute Lymphocyte Count 2.11 X10^3/uL (0.83-4.51); Basophil# 0.06 X10^3/uL; Basophil% 0.8 % (0-1); Eosinophil# 0.22 X10^3/uL; Eosinophils% 2.8 % (0-5); Hemoglobin 8.6 g/dL (12.0-15.0); Lymphocyte # 2.11 X10^3/ul (0.83-4.51); Lymphocyte % 26.9 % (19-41); Mean Corp Hgb Conc 30.7 g/dL (32-36); Mean Corpuscular Hgb 25.9 pg (27.0-32.0); Mean Corpuscular Volume 84.3 fL (81-99); Mean Platelet Vol. 9.9 fl (6.2-12.0); Monocyte# 0.42 X10^3/uL; Monocyte% 5.4 % (0-10); NRBC Flagged by Analyzer 0 % (0-5); Neutrophil # 4.97 X10^3/uL (2.7-7.7); Neutrophil % 63.3 % (47-70); POSITIVE MORPHOLOGY YES; Platelet Count 288 K/mm3 (150-450); RBC Distribution Width CV 20.9 % (11.6-14.6); RBC Distribution Width SD 62.9 fl (35.1-43.9); Red Blood Count 3.32 M/mm3 (4.2-5.4); White Blood Count 7.8 K/mm3 (4.4-11.0)
[2024-01-05 07:04] LABS: Differential Indicated SCAN CRITERIA MET
[2024-01-05 07:29] LABS: Anion Gap 5 (5-15); BUN 12 mg/dL (7-18); BUN/Creat Ratio 16.5 RATIO (10-20); Calcium,Total 8.5 mg/dL (8.5-10.1); Chloride 103 mmol/L (98-107); Creatinine, Serum 0.73 mg/dL (0.55-1.02); EST Glomerular Filtration Rate 83 mL/min (>60); Est Glom Filt Rate - Afr Amer 100 mL/min (>60); Estimated Creatinine Clearance 74.86 ml/min; Glucose 160 mg/dL (74-106); Potassium 3.9 mmol/L (3.5-5.1); Sodium Level 135 mmol/L (136-145)
[2024-01-05] MEDS: Ciprofloxacin 500 MG Tablet PO (08:04)
[2024-01-05] MEDS: Ensure Plus High Protein 120 ML LIQUID PO ×2 (08:05→14:29)
[2024-01-05] MEDS: Menthol/Lanolin/Calamine/Znox 113 GM Tube 1 APPLIC TOPICAL (08:07)
[2024-01-05 08:39] VITALS: BP 146/50; PULSE 75; RESP 16; TEMP 36.4; O2SAT 96
--- NOTE | 2024-01-05 09:02 | PN.HOSP_ITS ---
Reason for Visit Reason for Visit: Diagnoses Candidiasis of skin and nail (12/28/23) Unspecified streptococcus as the cause of diseases classified elsewhere (12/28/23) Iron deficiency anemia, unspecified (12/28/23) Elevated white blood cell count, unspecified (12/28/23) Hypo-osmolality and hyponatremia (12/28/23) Constipation, unspecified (12/28/23) Cellulitis of left lower limb (12/28/23) Elevated blood-pressure reading, without diagnosis of hypertension (12/28/23) Weakness (12/28/23) Other malaise (12/28/23) Bacteremia (12/28/23) Unspecified abnormal findings in urine (12/28/23) Subjective Subjective Feels that the Fito wrap on her left lower extremity is too tight and requesting to be taken off. Objective Data Objective Data Vital Signs: Vital Signs Temp Pulse Resp BP Pulse Ox O2 Del Method O2 Flow Rate 36.4 C L 75 16 146/50 H 96 Room Air 2 01/05/24 08:39 01/05/24 08:39 01/05/24 08:39 01/05/24 08:39 01/05/24 08:39 01/05/24 08:39 01/02/24 13:01 Oxygen Flow Rate (L/min) 2 Oxygen Delivery Method Room Air Weight: 115.8 kg Body Mass Index (BMI) 42.5 Intake & Output: Intake and Output for Last 24 Hours 01/03/24 01/04/24 01/05/24 23:59 23:59 23:59 Intake Total 834.75 / 1034.75 250 / 250 Balance 834.75 / 1034.75 250 / 250 Lab / Micro Data 01/05/24 06:13 01/05/24 06:13 Labs: Laboratory Results - last 24 hr 01/05/24 06:13: WBC 7.8, RBC 3.32 L, Hgb 8.6 L, Hct 28.0 L, MCV 84.3, MCH 25.9 L , MCHC 30.7 L, RDW Std Deviation 62.9 H, RDW Coeff of Collins 20.9 H, Plt Count 288, MPV 9.9, Immature Gran % (Auto) 0.800, Neut % (Auto) 63.3, Lymph % (Auto) 26.9, [place] % (Auto) 5.4, Eos % (Auto) 2.8, Baso % (Auto) 0.8, Absolute Neuts (auto) 5.0, Absolute Lymphs (auto) 2.11, Nucleated RBC % 0, Sodium 135 L, Potassium 3.9, Chloride 103, Carbon Dioxide 27.0, Anion Gap 5, BUN 12, Creatinine 0.73, Estim Creat Clear Calc 74.86, Est GFR (MDRD) Af Amer 100, Est GFR (MDRD) Non-Af 83, BUN/Creatinine Ratio 16.5, Glucose 160 H, Calcium 8.5 Micro: Microbiology 12/31/23 11:30 Blood Culture (Wb) - Anticubital Left Blood Culture - Preliminary No growth in 48 hours. 12/29/23 11:15 Wound - Leg, Left Gram Stain - Final 12/29/23 11:15 Wound - Leg, Left Wound Culture - Final Pseudomonas aeruginosa Morganella morganii sp morgani Providencia stuartii Klebsiella oxytoca Streptococcus sanguinis Coag Negative Staph 12/29/23 11:15 Wound - Leg, Left Skin and Soft Tissue MRSA/MSSA (PCR - Final 12/28/23 21:56 Urine Catheter - Catheter Urine Culture - Final Presumptive E. coli Klebsiella pneumoniae sp pneum 12/28/23 23:15 Blood Culture (Wb) - Anticubital Left Blood Culture - Final Streptococcus group G 12/29/23 00:40 Stool Stool Occult Blood (MELANIE) - Final 12/28/23 21:56 Mucosa - Nasopharyngeal SARS-CoV-2, Influenza & RSV (PCR) - Final Rhythm Strip Rhythm Strip: Sinus Rhythm Rate: 79 Ectopy: None Physical Exam Const alert and no apparent distress HEENT head/scalp atraumatic and moist oral mucous membranes Extremity Extremity Narrative: Edema bilaterally. Fito wrap taken of the left lower extremity but Kerlix left intact. Assessment & Plan Assessment/Plan (1) Cellulitis of leg, left: (2) Microcytic anemia: PLAN: Plan Cellulitis of the LLE * Polymicrobial: Pseudomonas, Morganella, PreviDent Savi, Klebsiella, Streptococcus and coag negative staph. * ID on consult * Antibiotics with ceftriaxone and ciprofloxacin. * Echocardiogram is negative. Per ID recommendations, plan for 3 more days of oral Cipro and cefdinir at 500 twice daily 300 twice daily, respectively. Bacteremia * Group C Streptococcus. * Antibiotics as above. Repeat blood cultures thus far negative. * No vegetation on echocardiogram. Iron deficiency anemia * Hemoglobin dropped down to 6.7, since has stabilized * Status post 2 units of packed red blood cells. * Iron replacement * Patient had a colonoscopy that showed hemorrhoids that were nonbleeding as well as diverticulosis. Likely both of those were 1 of those could be the source of her chronic anemia. Debility * PT/OT * Case management to assist on disposition DVT prophylaxis: SCDs. Discharged to [facility]
[2024-01-05 09:05] LABS: Anisocytosis 2+; Differential Comment SCANNED; Macrocytosis 1+; Microcytosis 1+
--- NOTE | 2024-01-05 09:06 | CASEMGMT ---
Discharge Planning Updates sent to [facility]. Federica Brown DC Planning Asst.
[2024-01-05] MEDS: Ceftriaxone 1 GM/50 ML BAG IV (09:54)
[2024-01-05] MEDS: 0.9% Saline Lock 10 ML Syringe IV (09:56)
--- NOTE | 2024-01-05 10:06 | CASEMGMT ---
Discharge Planning [facility] has obtained auth. SW updated. Federica Brown DC Planning Asst.
[2024-01-05] MEDS: Ferrous Sulfate 325 MG Tablet PO (11:15)
[2024-01-05 11:30] VITALS: BP 150/75; PULSE 74; RESP 16; TEMP 36.7; O2SAT 96
--- NOTE | 2024-01-05 12:42 | DS.PCM_ITS ---
Providers Date of Admission: 12/28/23 Primary Care Physician: Dr. Hailey Serna MD Consultations 12/29/23 01:05 Consult: Onc/Wound/operations and maintenance manager Routine Comment: 12/29/23 07:40 Consult: Gastroenterology Routine Consulting Provider: [facility] Reason for Consult: iron deficiency anemia EMERGENT Consult: No Notified: Yes Date Notified: 12/29/23 Time Notified: 07:40 Method of Notification: Text 01/02/24 13:30 Consult: Infectious Disease Routine Consulting Provider: Gage Serrano Reason for Consult: Strep bacteremia EMERGENT Consult: No Notified: Yes Date Notified: 01/02/24 Time Notified: 13:30 Method of Notification: Text Reason For Visit: CELLULITIS OF LLE & ANEMIA Diagnosis Discharge Diagnosis (1) Cellulitis of leg, left: Status: Acute Code(s): L03.116 - Cellulitis of left lower limb (2) Microcytic anemia: Status: Acute Code(s): D50.9 - Iron deficiency anemia, unspecified Plan Cellulitis of the LLE * Polymicrobial: Pseudomonas, Morganella, PreviDent Savi, Klebsiella, Streptococcus and coag negative staph. * ID on consult * Antibiotics with ceftriaxone and ciprofloxacin. * Echocardiogram is negative. Per ID recommendations, plan for 3 more days of oral Cipro and cefdinir at 500 twice daily 300 twice daily, respectively. Bacteremia * Group C Streptococcus. * Antibiotics as above. Repeat blood cultures thus far negative. * No vegetation on echocardiogram. Iron deficiency anemia * Hemoglobin dropped down to 6.7, since has stabilized * Status post 2 units of packed red blood cells. * Iron replacement * Patient had a colonoscopy that showed hemorrhoids that were nonbleeding as well as diverticulosis. Likely both of those were 1 of those could be the source of her chronic anemia. Debility * PT/OT * Case management to assist on disposition DVT prophylaxis: SCDs. Discharged to [facility] Medications at Discharge Home Medications furosemide 20 mg tablet 20 mg PO DAILY PRN swelling 12/28/23 levothyroxine 75 mcg tablet 25 mcg PO DAILY Hypothyroid 12/28/23 acetaminophen 325 mg tablet 650 mg (2 x 325 mg) PO Q6H PRN PRN Pain 1-10 Or Fever>100.7 #0 tabs 01/04/24 albuterol sulfate 2.5 mg/3 mL (0.083 %) solution for nebulization 2.5 mg (3 mL) inhalation Q2H PRN PRN SOB &/OR WHEEZING #0 mL 01/04/24 ciprofloxacin HCl 500 mg tablet 500 mg PO BID #6 tabs 01/04/24 ferrous sulfate 325 mg (65 mg iron) tablet (FeroSul) 325 mg PO DAILY@1200 #0 tabs 01/04/24 food supplemt, lactose-reduced 0.08 gram-1.5 kcal/mL oral liquid (Ensure Plus High Protein) 120 ml PO 4X/DAY #0 mL 01/04/24 ibuprofen 200 mg capsule 400 mg (2 x 200 mg) PO Q6H PRN fever or pain #20 caps 01/04/24 cefdinir 300 mg capsule 300 mg PO BID #6 caps 01/05/24 Hospital Course Operations None Procedures None Weight / BMI Weight Weight: 115.8 kg Body Mass Index (BMI) 42.5 ABG / Lab / Microbiology Data 01/05/24 06:13 01/05/24 06:13 Laboratory: Laboratory Results - last 24 hr 01/05/24 06:13: WBC 7.8, RBC 3.32 L, Hgb 8.6 L, Hct 28.0 L, MCV 84.3, MCH 25.9 L , MCHC 30.7 L, RDW Std Deviation 62.9 H, RDW Coeff of Collins 20.9 H, Plt Count 288, MPV 9.9, Immature Gran % (Auto) 0.800, Neut % (Auto) 63.3, Lymph % (Auto) 26.9, [place] % (Auto) 5.4, Eos % (Auto) 2.8, Baso % (Auto) 0.8, Absolute Neuts (auto) 5.0, Absolute Lymphs (auto) 2.11, Nucleated RBC % 0, Differential Comment SCANNED, Anisocytosis 2+, Microcytosis 1+, Macrocytosis 1+, Sodium 135 L, Potassium 3.9, Chloride 103, Carbon Dioxide 27.0, Anion Gap 5, BUN 12, Creatinine 0.73, Estim Creat Clear Calc 74.86, Est GFR (MDRD) Af Amer 100, Est GFR (MDRD) Non-Af 83, BUN/Creatinine Ratio 16.5, Glucose 160 H, Calcium 8.5 Microbiology: Microbiology 12/31/23 11:30 Blood Culture (Wb) - Anticubital Left Blood Culture - Final No growth in 5 days. 12/29/23 11:15 Wound - Leg, Left Gram Stain - Final 12/29/23 11:15 Wound - Leg, Left Wound Culture - Final Pseudomonas aeruginosa Morganella morganii sp morgani Providencia stuartii Klebsiella oxytoca Streptococcus sanguinis Coag Negative Staph 12/29/23 11:15 Wound - Leg, Left Skin and Soft Tissue MRSA/MSSA (PCR - Final 12/28/23 21:56 Urine Catheter - Catheter Urine Culture - Final Presumptive E. coli Klebsiella pneumoniae sp pneum 12/28/23 23:15 Blood Culture (Wb) - Anticubital Left Blood Culture - Final Streptococcus group G 12/29/23 00:40 Stool Stool Occult Blood (MELANIE) - Final 12/28/23 21:56 Mucosa - Nasopharyngeal SARS-CoV-2, Influenza & RSV (PCR) - Final D/C Instructions Discharge Diet: No restrictions Meaningful Use Info Meaningful Use Meaningful Use Diagnoses (Choose all that apply): None applicable Ischemic Stroke Statin Dosing Therapy Reference: STATIN DOSE THERAPY REFERENCE: * Patients > 75 years receive moderate or high dose statin therapy. * Patients 75 years or YOUNGER should receive HIGH intensity statin dose unless contraindicated. You will be required to document reason for non-treatment if statin daily dose does not meet guidelines. HIGH DOSE STATIN THERAPY DAILY Atorvastatin > than or = to 40 mg Rosuvastatin > than or = to 20 mg Amlodipine + Atorvastatin > than or = to 2.5/40 mg Ezetimibe + Simvastatin 10/80 mg Simvastatin 80mg Discharge Plan Admission Admit Date/Time: 12/28/23 23:45 Primary Reason for Your Visit: Leg wounds and bacteremia. Attending Provider: Levy Christianson Primary Care Provider: Hailey Serna Consulting Providers: Graciela Cartagena; Gage Serrano; Sejal Marin Discharge Orders/Prescriptions Prescriptions: New acetaminophen 325 mg Tablet 650 mg PO Q6H PRN PRN (Reason: Pain 1-10 Or Fever>100.7) Qty: 0 0RF albuterol sulfate 2.5 mg /3 mL (0.083 %) Solution For Nebulization 2.5 mg inhalation Q2H PRN PRN (Reason: SOB &/OR WHEEZING) Qty: 0 0RF ciprofloxacin HCl 500 mg Tablet 500 mg PO BID Qty: 6 0RF ferrous sulfate [FeroSul] 325 mg (65 mg iron) Tablet 325 mg PO DAILY@1200 Qty: 0 0RF Ensure Plus High Protein 0.08 gram-1.5 kcal/mL Liquid 120 ml PO 4X/DAY Qty: 0 0RF ibuprofen 200 mg capsule 400 mg PO Q6H PRN (Reason: fever or pain) Qty: 20 0RF cefdinir 300 mg capsule 300 mg PO BID Qty: 6 0RF Continued levothyroxine 75 mcg tablet 25 mcg PO DAILY furosemide 20 mg tablet 20 mg PO DAILY PRN (Reason: swelling) Discontinued silver sulfadiazine 1 % cream 1 applic topical BID Referrals / Follow Up: Hailey Serna MD [Primary Care Provider] - Within 2 Weeks Disposition Disposition (needs filled in before D/C Order can be placed): Long-Term Facility Charges/Coding Visit Charges Inpatient E&M: 71734 Disch Hosp
--- NOTE | 2024-01-05 13:30 | CASEMGMT ---
Social Work Precert has been obtained for pt to dischrage to [facility]. Physician notified, and pt is ready for discharge. 7000 exemption form completed in [facility]. DC assistant hall director to complete discharge. Disposition: [facility], skilled level of care under convalescent stay MEGAN Nieves
--- NOTE | 2024-01-05 13:43 | CASEMGMT ---
Discharge Planning Discharge orders, signed med list, and transport time sent to [facility] via [facility]. Transport was scheduled with [facility] for 5p by wheelchair. Nursing, SW, patient, and her son, updated. Federica Brown DC Planning Asst.
--- NOTE | 2024-01-05 15:21 | PHA.DC_ITS ---
Pharmacy [place] Med Reconciliation Pharmacy Service has performed discharge medication reconciliation for this patient upon transfer to [facility]. The patient's discharge medication list was reviewed for discrepancies and discrepancies were resolved. Medications at Discharge Home Medications furosemide 20 mg tablet 20 mg PO DAILY PRN swelling 12/28/23 levothyroxine 75 mcg tablet 25 mcg PO DAILY Hypothyroid 12/28/23 acetaminophen 325 mg tablet 650 mg (2 x 325 mg) PO Q6H PRN PRN Pain 1-10 Or Fever>100.7 #0 tabs 01/04/24 albuterol sulfate 2.5 mg/3 mL (0.083 %) solution for nebulization 2.5 mg (3 mL) inhalation Q2H PRN PRN SOB &/OR WHEEZING #0 mL 01/04/24 ciprofloxacin HCl 500 mg tablet 500 mg PO BID #6 tabs 01/04/24 ferrous sulfate 325 mg (65 mg iron) tablet (FeroSul) 325 mg PO DAILY@1200 #0 tabs 01/04/24 food supplemt, lactose-reduced 0.08 gram-1.5 kcal/mL oral liquid (Ensure Plus High Protein) 120 ml PO 4X/DAY #0 mL 01/04/24 ibuprofen 200 mg capsule 400 mg (2 x 200 mg) PO Q6H PRN fever or pain #20 caps 01/04/24 cefdinir 300 mg capsule 300 mg PO BID #6 caps 01/05/24
[2024-01-05 16:02] VITALS: BP 131/52; PULSE 77; RESP 16; TEMP 36.7; O2SAT 96
--- NOTE | 2024-01-05 17:24 | PN.GI_ITS ---
Subjective Subjective Patient is doing well. He underwent endoscopy yesterday. He has no bleeding today. No nausea, no vomiting or diarrhea. He is actually feeling the best he has felt in a long time. Objective Data Objective Data Vital Signs: Vital Signs Temp Pulse Resp BP Pulse Ox O2 Del Method O2 Flow Rate 98.1 F 77 16 131/52 H 96 Room Air 2 01/05/24 16:02 01/05/24 16:02 01/05/24 16:02 01/05/24 16:02 01/05/24 16:02 01/05/24 16:02 01/02/24 13:01 Oxygen Flow Rate (L/min) 2 Oxygen Delivery Method Room Air Weight: 255 lb 4.725 oz Body Mass Index (BMI) 42.5 Intake & Output: Intake and Output for Last 24 Hours 01/03/24 01/04/24 01/05/24 23:59 23:59 23:59 Intake Total 834.75 / 1034.75 250 / 250 300 / 300 Balance 834.75 / 1034.75 250 / 250 300 / 300 Lab / Micro Data 01/05/24 06:13 01/05/24 06:13 Labs: Laboratory Results - last 24 hr 01/05/24 06:13: WBC 7.8, RBC 3.32 L, Hgb 8.6 L, Hct 28.0 L, MCV 84.3, MCH 25.9 L , MCHC 30.7 L, RDW Std Deviation 62.9 H, RDW Coeff of Collins 20.9 H, Plt Count 288, MPV 9.9, Immature Gran % (Auto) 0.800, Neut % (Auto) 63.3, Lymph % (Auto) 26.9, [place] % (Auto) 5.4, Eos % (Auto) 2.8, Baso % (Auto) 0.8, Absolute Neuts (auto) 5.0, Absolute Lymphs (auto) 2.11, Nucleated RBC % 0, Differential Comment SCANNED, Anisocytosis 2+, Microcytosis 1+, Macrocytosis 1+, Sodium 135 L, Potassium 3.9, Chloride 103, Carbon Dioxide 27.0, Anion Gap 5, BUN 12, Creatinine 0.73, Estim Creat Clear Calc 74.86, Est GFR (MDRD) Af Amer 100, Est GFR (MDRD) Non-Af 83, BUN/Creatinine Ratio 16.5, Glucose 160 H, Calcium 8.5 Micro: Microbiology 12/31/23 11:30 Blood Culture (Wb) - Anticubital Left Blood Culture - Final No growth in 5 days. 12/29/23 11:15 Wound - Leg, Left Gram Stain - Final 12/29/23 11:15 Wound - Leg, Left Wound Culture - Final Pseudomonas aeruginosa Morganella morganii sp morgani Providencia stuartii Klebsiella oxytoca Streptococcus sanguinis Coag Negative Staph 12/29/23 11:15 Wound - Leg, Left Skin and Soft Tissue MRSA/MSSA (PCR - Final 12/28/23 21:56 Urine Catheter - Catheter Urine Culture - Final Presumptive E. coli Klebsiella pneumoniae sp pneum 12/28/23 23:15 Blood Culture (Wb) - Anticubital Left Blood Culture - Final Streptococcus group G 12/29/23 00:40 Stool Stool Occult Blood (MELANIE) - Final 12/28/23 21:56 Mucosa - Nasopharyngeal SARS-CoV-2, Influenza & RSV (PCR) - Final Rhythm Strip Rhythm Strip: Sinus Rhythm Rate: 79 Ectopy: None Physical Exam Const alert and no apparent distress HEENT head/scalp atraumatic and moist oral mucous membranes Resp normal respiratory effort and no retractions Extremity Extremity Narrative: Legs wrapped, did not remove. Neuro Sensorium / Orientation: awake and alert Assessment & Plan Assessment/Plan (1) Cellulitis of leg, left: (2) Microcytic anemia: PLAN: Plan * #Iron deficiency anemia * s/p transfusion of 2 units of PRBCs * Hb today is 9.1 * Iron studies showed iron deficiency anemia * she has never had a colonoscopy. She denies any dark stools or coffee ground emesis. * on IV pantoprazole * She had EGD which showed normal esophagus and granular mucosa in the antrum which was biopsied * will benefit from colonooscopy. GI on board * Colonoscopy * Findings: Hemorrhoids were found on perianal exam. Non-bleeding internal hemorrhoids were found during digital exam. The hemorrhoids were Grade II (internal hemorrhoids that prolapse but reduce spontaneously). Multiple small and large-mouthed diverticula were found in the recto-sigmoid colon, sigmoid colon, descending colon, splenic flexure and transverse colon. A moderate amount of stool was found in the ascending colon and in the cecum, interfering with visualization. The exam was otherwise without abnormality. Impression: - Preparation of the colon was fair. - Hemorrhoids found on perianal exam. - Non-bleeding internal hemorrhoids. - Diverticulosis in the recto-sigmoid colon, in the sigmoid colon, in the descending colon, at the splenic flexure and in the transverse colon. - Stool in the ascending colon and in the cecum. - The examination was otherwise normal. - No specimens collected. Recommendation: - [facility]. - Resume regular diet. - Continue present medications. - Repeat colonoscopy in 6 months because the bowel preparation was suboptimal. * Charges/Coding Visit Charges Inpatient E&M: 87438 [facility] Hosp L3
== END 2024-01-05 17:31 | disposition skilled nursing facility (03) | DRG 603 ==
LOC: ED 22:28 → MS3 12-29 00:16
PROVIDERS: Internal Medicine Gastroenterology; Student in an Organized Health Care Education/Training Program; Admitting Provider Internal Medicine; Emergency Provider Emergency Medicine; PCP Internal Medicine
PROC: 0DJ08ZZ Inspection of Upper Intestinal Tract, Via Natural or Artificial Opening Endoscopic (ICD-10-PCS; CPT 43235; principal; 2023-12-30 16:55)
PROC: 0DJD8ZZ Inspection of Lower Intestinal Tract, Via Natural or Artificial Opening Endoscopic (ICD-10-PCS; CPT 45378; principal; 2024-01-02 12:55)
DX: L03.116 Cellulitis of left lower limb (principal); R78.81 Bacteremia; L97.921 Non-pressure chronic ulcer of unspecified part of left lower leg limited to breakdown of skin; E87.1 Hypo-osmolality and hyponatremia; Z68.41 Body mass index [BMI] 40.0-44.9, adult; B37.2 Candidiasis of skin and nail; E03.9 Hypothyroidism, unspecified; E66.01 Morbid (severe) obesity due to excess calories; G47.33 Obstructive sleep apnea (adult) (pediatric); K57.30 Diverticulosis of large intestine without perforation or abscess without bleeding; K64.1 Second degree hemorrhoids; K59.09 Other constipation; R03.0 Elevated blood-pressure reading, without diagnosis of hypertension; R29.6 Repeated falls; R53.81 Other malaise; B96.1 Klebsiella pneumoniae [K. pneumoniae] as the cause of diseases classified elsewhere; B95.4 Other streptococcus as the cause of diseases classified elsewhere; B95.7 Other staphylococcus as the cause of diseases classified elsewhere; B96.4 Proteus (mirabilis) (morganii) as the cause of diseases classified elsewhere; B96.5 Pseudomonas (aeruginosa) (mallei) (pseudomallei) as the cause of diseases classified elsewhere; Z79.890 Hormone replacement therapy; Z79.899 Other long term (current) drug therapy; Z87.891 Personal history of nicotine dependence; Z88.0 Allergy status to penicillin
CPT/HCPCS: 36415; 70450; 71045; 72125; 72170; 73590; 80048; 80053; 80202; 81001; 82274; 82550; 82728; 83036; 83540; 83550; 83605; 83735; 84100; 84443; 84484; 85025; 85045; 85652; 86140; 86850; 86900; 86901; 86920; 86922; 87040; 87070; 87077; 87086; 87088; 87184; 87186; 87205; 87631; 87640; 88305; 88342; 93005; 93306; 97110; 97116; 97162; 97166; 97530; 97535; 97802; 99285; J7030; J7040; J7050; J7120; P9016; Q9957; A4216; C8929; J2405